=== PATIENT | male | born 1955 | race Caucasian/White ===

== ENCOUNTER 2017-10-21 18:15 | Inpatient (IN) | payer MEDICAID, OTHER ==
[~2017-10-21] VITALS: Ht 170.2 cm; Wt 66.0 kg
[2017-10-21 18:31] VITALS: Ht 170.2 cm; Wt 66.0 kg
[2017-10-21] MEDS ORDERED: PIPER-TAZO 3.375 GM IV (PMX) 50 ML IVPB STA (18:46)
[2017-10-21] MEDS ORDERED: ONDANSETRON 4 MG INJ IV STA (18:46)
[2017-10-21] MEDS ORDERED: morphine 4 MG/ML VIAL IV STA (18:46)
[2017-10-21] MEDS ORDERED: SOD CHLORIDE 0.9% 1,000 ML IV STA (18:46)
[2017-10-21] MEDS ORDERED: VANCOMYCIN 1 GM (PMX) 250 ML IVPB SCH (19:00)
[2017-10-21 19:21] LABS: BASOPHILS % 0.4 % (0.0-2.0); EOSINOPHILS # 0.3 10^3/ul (0.0-0.5); EOSINOPHILS % 2.5 % (0.0-7.0); HEMATOCRIT 38.6 % (42.0-52.0); HEMOGLOBIN 13.1 g/dl (14.0-18.0); LYMPHOCYTES # 3.1 10^3/ul (0.8-2.9); LYMPHOCYTES % 28.5 % (15.0-51.0); MEAN CORPUSCULAR HEMOGLOBIN 31.1 pg (29.0-33.0); MEAN CORPUSCULAR HGB CONC 33.9 g/dl (32.0-37.0); MEAN CORPUSCULAR VOLUME 91.7 fl (82.0-101.0); MEAN PLATELET VOLUME 9.2 fl (7.4-10.4); MONOCYTE # 0.8 10^3/ul (0.3-0.9); MONOCYTES % 6.9 % (0.0-11.0); NEUTROPHIL # 6.6 10^3/ul (1.6-7.5); NEUTROPHILS % 61.3 % (39.0-77.0); PLATELET COUNT 379 10^3/UL (140-415); RED BLOOD COUNT 4.21 10^6/ul (4.70-6.10); RED CELL DISTRIBUTION WIDTH 13.1 % (11.5-14.5); WHITE BLOOD COUNT 10.8 10^3/ul (4.8-10.8)
[2017-10-21 19:25] LABS: ADD UMIC YES; UR AMORPHOUS CRYSTAL FEW /HPF (NONE SEEN); UR ASCORBIC ACID NEGATIVE (NEGATIVE); UR BACTERIA FEW /HPF (NONE SEEN); UR BILIRUBIN (Dip) NEGATIVE (NEGATIVE); UR BLOOD (Dip) 1+ mg/dL (NEGATIVE); UR CLARITY TURBID (CLEAR); UR COLOR YELLOW (YELLOW); UR GLUCOSE (Dip) NEGATIVE (NEGATIVE); UR KETONES (Dip) NEGATIVE (NEGATIVE); UR LEUKOCYTE ESTERASE (Dip) 3+ Leu/ul (NEGATIVE); UR MUCUS MODERATE /HPF (NONE SEEN); UR NITRITE (Dip) NEGATIVE (NEGATIVE); UR RBC 4 /HPF (0-5); UR SQUAMOUS EPITHELIAL CELL FEW /HPF (FEW); UR TOTAL PROTEIN (Dip) NEGATIVE (NEGATIVE); UR UROBILINOGEN (Dip) NEGATIVE (NEGATIVE)
[2017-10-21 19:38] LABS: ALBUMIN 4.2 g/dl (3.3-4.9); ALBUMIN/GLOBULIN RATIO 1.5; CALCIUM 9.7 mg/dl (8.4-10.2); CREATININE 0.54 mg/dl (0.61-1.24); POTASSIUM 3.8 mmol/L (3.5-5.1)
--- NOTE | 2017-10-21 19:38 | RADRPT ---
PROCEDURE: Chest x-ray CLINICAL INDICATION: Abdominal pain TECHNIQUE: Chest single view COMPARISON: None FINDINGS: The heart is normal in size. The pulmonary vessels are normal in caliber. There is linear left lowe r lobe atelectasis/scarring. Lungs otherwise clear. The costophrenic angles are sharp. The visuali zed bony thorax is unremarkable. Cervical spine fusion is noted. IMPRESSION: No acute cardiopulmonary disease. RPTAT: HH .Shahriar Rm MD, Date Time Electronically viewed and signed by .Shahriar Rm MD, on 10/21/2017 19:38 .W/
[2017-10-21] MEDS ORDERED: ACET325T45 PO (19:52)
[2017-10-21] MEDS ORDERED: ALBU2.5V3 NEB (19:53)
[2017-10-21] MEDS ORDERED: [UNRECOGNIZED DRUG - CODE] PO (19:55)
[2017-10-21] MEDS ORDERED: DEXT1DRO7 OP (19:56)
[2017-10-21] MEDS ORDERED: BACL10TA PO (19:57)
[2017-10-21] MEDS ORDERED: BISA10SU75 PR (19:57)
[2017-10-21] MEDS ORDERED: DOCU-159 PO (19:59)
[2017-10-21] MEDS ORDERED: CLOT30CR35 TOP (19:59)
[2017-10-21] MEDS ORDERED: ENOX40DI2 SC (20:00)
[2017-10-21] MEDS ORDERED: FER325 PO (20:00)
[2017-10-21] MEDS ORDERED: OMEG-135 PO (20:01)
[2017-10-21] MEDS ORDERED: FOLI-49 PO (20:01)
[2017-10-21] MEDS ORDERED: GLYC1SUP92 PR (20:06)
--- NOTE | 2017-10-21 20:10 | RADRPT ---
PROCEDURE: CT ABDOMEN AND PELVIS WITHOUT CONTRAST CLINICAL INDICATION: 62-year of age, male . Abdominal pain. TECHNIQUE: CT of the abdomen and pelvis was performed without intravenous contrast. Oral contrast wa s not administered prior to the examination. Coronal and sagittal reformatted images were obtained from the axial source images. Images were revi ewed on a high-resolution PACS workstation. DICOM images are available. Dose information: Based on a 32 cm phantom, the estimated radiation dose (CTDIvol mGy) for each seri es in this exam is 15.9. The estimated cumulative dose (DLP mGy-cm) is 899. One or more of the following dose reduction techniques were used: - Automated exposure control. - Adjustment of the mA and/or kV according to patient size. - Use of iterative reconstruction technique. COMPARISON: None available. FINDINGS: In the absence of intravenous contrast, the study constitutes a limited assessment of the solid orga ns, bowel and vessels. LUNG BASES: Mild linear atelectasis of bilateral lung bases. Mild coronary artery calcification. ABDOMEN/PELVIS: Liver: Normal noncontrast appearance. Gallbladder: Normal noncontrast appearance. Bile ducts: No intrahepatic or extrahepatic biliary duct dilatation. Spleen: Normal noncontrast appearance. Pancreas: Normal noncontrast appearance. Adrenal glands: Punctate calcification in the left adrenal gland is likely from remote infection or hemorrhage. Otherwise normal. Kidneys and ureters: There is mild to moderate bilateral hydronephrosis and hydroureter with bilater al perinephric and periureteral fat stranding. Negative for renal or ureteral calculi. Negative for evidence of an obstructing lesion. Kidneys are normal size. Aorta and IVC: Atherosclerotic calcification of aorta and iliac vessels. Negative for abdominal aort ic aneurysm. Lymph nodes: Normal noncontrast appearance. Gastrointestinal tract: There is garza colonic diverticulosis without diverticulitis. Bowel loops are decompressed and otherwise unremarkable. Appendix: Normal. Bladder: There is a Nevarez catheter in a distended urinary bladder. There are calcifications on the F oley catheter balloon. There are multiple small calculi layering dependently in the urinary bladder. Bladder wall is mildly thickened with edema in the surrounding fat. There is generalized edema in t he extraperitoneal fat of the pelvis. Pelvic Organs: Prostate gland and seminal vesicles are unremarkable. Peritoneal cavity: No free fluid or free intraperitoneal air. Abdominal wall: Mild bilateral gynecomastia. Small fat containing indirect right inguinal hernia. BONES: Musculoskeletal: There is extensive heterotopic ossification arising from the posterior wall of the right acetabulum that may be from a remote injury. Right hip is in joint without significant degener ative change. Bones are osteopenic and there are mild degenerative changes in the spine. No suspicio us bone lesions. IMPRESSION: 1. Distended urinary bladder despite a Nevarez catheter may indicate a blocked catheter. There are archana cifications on the Nevarez catheter balloon and there are calculi layering dependently in the urinary bladder. Mild bladder wall thickening with edema in the surrounding fat is concerning for cystitis. Recommend correlation with urinalysis. 2. Mild to moderate bilateral hydronephrosis and hydroureter with bilateral perinephric and periuret eral fat stranding may be due to reflux related to the distended urinary bladder. Upper urinary trac t infection with pyelonephritis cannot be excluded. Negative for renal or ureteral calculi. 3. Colonic diverticulosis without diverticulitis. Normal appendix. RPTAT: HCTS Physician Gt Date Time Electronically viewed and signed by Physician Gt on 10/21/2017 20:10 /
[2017-10-21] MEDS ORDERED: HYDR-906 PO (20:13)
[2017-10-21] MEDS ORDERED: HYDR-902 PO (20:13)
[2017-10-21] MEDS ORDERED: LACTINEX PO (20:16)
[2017-10-21] MEDS ORDERED: GABA100C PO (20:17)
[2017-10-21] MEDS ORDERED: METF500T4 PO (20:17)
[2017-10-21] MEDS ORDERED: SENN-53 PO (20:18)
[2017-10-21] MEDS ORDERED: SIME80TA53 PO (20:19)
[2017-10-21] MEDS ORDERED: MULT-908 PO (20:20)
[2017-10-21] MEDS ORDERED: ASC500 PO (20:20)
[2017-10-21] MEDS ORDERED: CHOL200073 PO (20:21)
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
[2017-10-21] MEDS ORDERED: SOD CHLORIDE 0.9% 1,000 ML IV SCH (22:01)
[2017-10-21] MEDS ORDERED: ACETAMINOPHEN 325 MG TAB PO PRN ×2 (22:30→23:00)
[2017-10-21] MEDS ORDERED: ONDANSETRON 4 MG INJ IV PRN ×2 (22:30→23:00)
[2017-10-21] MEDS ORDERED: ALBUTEROL 0.083% (NEB) 2.5 MG/3 ML AMP NEB PRN (23:00)
[2017-10-21] MEDS ORDERED: NACL 0.9% 3 ML SYG IV SCH (23:00)
[2017-10-21] MEDS ORDERED: ALUMINUM HYDROXIDE 30 ML CUP PO SCH (23:00)
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
[2017-10-21 23:20] VITALS: BP 123/68; RESP 19
[2017-10-22] MEDS: ALUMINUM HYDROXIDE 30 ML CUP PO SCH ×5 (00:37→14:14)
[2017-10-22] MEDS: ENOXAPARIN 40 MG/0.4 ML SYG SC SCH ×2 (00:38→21:08)
[2017-10-22 02:00] VITALS: BP 107/66; RESP 20
[2017-10-22] MEDS ORDERED: PENDING SANTYL ORDER FOR WOUND CARE XX PRN (02:00)
[2017-10-22] MEDS: LEVOFLOXACIN 750MG/D5W (PMX) 150 ML IVPB SCH (05:32)
[2017-10-22 06:05] LABS: BASOPHILS % 0.3 % (0.0-2.0); EOSINOPHILS # 0.2 10^3/ul (0.0-0.5); EOSINOPHILS % 3.4 % (0.0-7.0); HEMATOCRIT 31.4 % (42.0-52.0); HEMOGLOBIN 10.4 g/dl (14.0-18.0); LYMPHOCYTES # 2.2 10^3/ul (0.8-2.9); LYMPHOCYTES % 32.7 % (15.0-51.0); MEAN CORPUSCULAR HEMOGLOBIN 30.7 pg (29.0-33.0); MEAN CORPUSCULAR HGB CONC 33.1 g/dl (32.0-37.0); MEAN CORPUSCULAR VOLUME 92.6 fl (82.0-101.0); MONOCYTE # 0.5 10^3/ul (0.3-0.9); MONOCYTES % 7.1 % (0.0-11.0); NEUTROPHIL # 3.8 10^3/ul (1.6-7.5); NEUTROPHILS % 56.2 % (39.0-77.0); PLATELET COUNT 333 10^3/UL (140-415); RED BLOOD COUNT 3.39 10^6/ul (4.70-6.10); RED CELL DISTRIBUTION WIDTH 13.3 % (11.5-14.5); WHITE BLOOD COUNT 6.7 10^3/ul (4.8-10.8)
[2017-10-22] MEDS: HYDROCODONE/APAP (5/325) TAB PO PRN ×2 (06:30→15:38)
[2017-10-22 06:42] LABS: ALBUMIN 3.3 g/dl (3.3-4.9); ALBUMIN/GLOBULIN RATIO 1.22; BILIRUBIN,INDIRECT 0.2 mg/dl (0-1.1); BILIRUBIN,TOTAL 0.2 mg/dl (0.2-1.3); CALCIUM 9.4 mg/dl (8.4-10.2); CHOL/HDL RATIO 5.4 RATIO; CREATININE 0.54 mg/dl (0.61-1.24); MAGNESIUM 1.8 mg/dl (1.7-2.5)
[2017-10-22 07:03] LABS: THYROID STIMULATING HORMONE 1.15 MIU/L (0.465-4.680)
[2017-10-22 07:48] VITALS: BP 125/70; RESP 17
[2017-10-22] MEDS: GABAPENTIN 100 MG CAP PO SCH ×2 (08:41→14:09)
[2017-10-22] MEDS: ASCORBIC ACID 500 MG TAB PO SCH ×2 (08:41→21:06)
[2017-10-22] MEDS: FOLIC ACID 1 MG TAB PO SCH (08:41)
[2017-10-22] MEDS: FERROUS SULFATE (EC) 325 MG TAB PO SCH ×3 (08:41→21:06)
[2017-10-22] MEDS: CLOTRIMAZOLE 1% 30 GM CR TOP SCH ×2 (08:41→21:14)
[2017-10-22] MEDS: CHOLECALCIFEROL 2,000 UNIT CAP PO SCH (08:41)
[2017-10-22] MEDS: DOCUSATE SODIUM 100 MG CAP PO SCH ×2 (08:41→21:05)
[2017-10-22] MEDS: BISACODYL 10 MG SUPP PR SCH (08:42)
[2017-10-22] MEDS: BACLOFEN 10 MG TAB PO SCH ×3 (08:42→21:06)
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
--- NOTE | 2017-10-22 10:10 | RADRPT ---
PROCEDURE: Renal US. CLINICAL INDICATION: Renal dysfunction. TECHNIQUE: Multiple sonographic images of the kidneys and urinary bladder were obtained. The imag es were reviewed on a PACS workstation. COMPARISON: CT scan of the abdomen and pelvis dated 10/21/2017. FINDINGS: The right kidney measures 10.3 cm. The left kidney measures 9.2 cm. There is no renal mass. There is no hydronephrosis. There is no renal calculus. Renal parenchymal thickness is normal bilaterally. Echogenicity is normal bilaterally. The perirenal regions are normal with no fluid collection or mass. There is a Nevarez catheter in the urinary bladder. IMPRESSION: 1. Nevarez catheter in the bladder. 2. Otherwise normal renal ultrasound. RPTAT: QQ .Reinier Villanueva MD, Date Time Electronically viewed and signed by .Reinier Villanueva MD, on 10/22/2017 10:09 .R/
[2017-10-22 14:24] VITALS: BP 149/77; RESP 17
--- NOTE | 2017-10-22 15:44 | PN ---
Date/Time of Note Date/Time of Note DATE: 10/22/17 TIME: 15:42 Assessment/Plan VTE Prophylaxis VTE Prophylaxis Intervention: LMWH Lines/Catheters [facility] [place] Urinary Cath still in place: Yes Reason Cath still needed: urinary retention Assessment/Plan Chief Complaint/Hosp Course 1. Complicated urinary tract infection. Continue empiric antibiotics. Final urine cultures pending. No evidence of any septic shock. 2. Bilateral hydronephrosis and hydroureter. Followed by nephrology. Continue empiric antibiotics. Obtain Urology evaluation. 3. Normocytic, normochromic anemia. Monitor H&H closely. The patient already on iron supplements. 4. Neurogenic bladder. Most probably secondary to the patient's spinal cord injury. The patient currently has a Nevarez catheter in place that is draining well. 5. Quadriparesis. Continue supportive care. Turn every 2 hours. 6. DVT prophylaxis. Subcutaneous Lovenox. 7. Plan. Continue empiric antibiotics. Await final cultures. Case discussed with Dr. Benitez. Problems: Subjective 24 Hr Interval Summary Free Text/Dictation Denies any pain. Exam/Review of Systems Vital Signs Vitals Vital Signs Date Time Temp Pulse Resp B/P Pulse Ox O2 Delivery O2 Flow Rate FiO2 10/22/17 14:24 97.8 67 17 149/77 96 10/21/17 22:00 Room Air Intake and Output 10/21/17 10/21/17 10/22/17 15:00 23:00 07:00 Intake Total 630 ml Output Total 1000 ml Balance -370 ml Exam General: Adequately build 62 year-old male lying in bed in no apparent distress. HEENT: Normocephalic, atraumatic. Eyes: Anicteric sclerae, conjunctivae clear. ENT: Nasal septum midline, oral mucosa moist. Neck supple, no JVD noticed. Respiratory: Bilaterally diminished breath sounds. No use of accessory muscles of respiration. No adventitious breath sounds. Cardiovascular: S1, S2 heard. Regular rate and rhythm. Abdomen: Soft, nontender, and nondistended. Bowel sounds positive in all 4 quadrants. Genitourinary: Nevarez catheter in place. Extremities: No cyanosis, no clubbing. Bilateral trace pedal edema. Peripheral pulses palpable. Neurologic: The patient is awake, alert, and oriented. Quadriparesis. Results Result Diagram: 10/22/17 0454 10/22/17 0454 Results 24 hrs Laboratory Tests Test 10/21/17 19:00 10/21/17 19:12 10/22/17 04:54 White Blood Count 10.8 6.7 # Red Blood Count 4.21 L 3.39 L Hemoglobin 13.1 L 10.4 #L Hematocrit 38.6 L 31.4 L Mean Corpuscular Volume 91.7 92.6 Mean Corpuscular Hemoglobin 31.1 30.7 Mean Corpuscular Hemoglobin Concent 33.9 33.1 Red Cell Distribution Width 13.1 13.3 Platelet Count 379 333 Mean Platelet Volume 9.2 10.0 Neutrophils % 61.3 56.2 Lymphocytes % 28.5 32.7 Monocytes % 6.9 7.1 Eosinophils % 2.5 3.4 Basophils % 0.4 0.3 Nucleated Red Blood Cells % 0.0 0.0 Neutrophils # 6.6 3.8 Lymphocytes # 3.1 H 2.2 Monocytes # 0.8 0.5 Eosinophils # 0.3 0.2 Basophils # 0.0 0.0 Nucleated Red Blood Cells # 0.0 0.0 Sodium Level 140 142 Potassium Level 3.8 4.0 Chloride Level 102 105 Carbon Dioxide Level 27 26 Anion Gap 15 15 Blood Urea Nitrogen 12 10 Creatinine 0.54 L 0.54 L Glucose Level 94 87 Calcium Level 9.7 9.4 Total Bilirubin 0.0 L 0.2 Direct Bilirubin 0.00 0.00 Indirect Bilirubin 0.0 0.2 Aspartate Amino Transf (AST/SGOT) 17 15 Alanine Aminotransferase (ALT/SGPT) 24 27 Alkaline Phosphatase 126 H 98 Total Protein 7.0 6.0 #L Albumin 4.2 3.3 Globulin 2.80 2.70 Albumin/Globulin Ratio 1.50 1.22 Urine Color YELLOW Urine Clarity TURBID A Urine pH 8.0 Urine Specific [place] 1.010 Urine Ketones NEGATIVE Urine Nitrite NEGATIVE Urine Bilirubin NEGATIVE Urine Urobilinogen NEGATIVE Urine Leukocyte Esterase 3+ H Urine Microscopic RBC 4 Urine Microscopic WBC 36 H Urine Squamous Epithelial Cells FEW Urine Amorphous Crystals FEW A Urine Bacteria FEW A Urine Mucus MODERATE Urine Hemoglobin 1+ H Urine Glucose NEGATIVE Urine Total Protein NEGATIVE Hemoglobin A1c 5.6 Magnesium Level 1.8 Triglycerides Level 159 H Cholesterol Level 164 LDL Cholesterol, Calculated 102 HDL Cholesterol 30 Cholesterol/HDL Ratio 5.4 Thyroid Stimulating Hormone (TSH) 1.150 Medications Medications Current Medications Acetaminophen (Tylenol Tab) 650 mg Q6H PRN PO PAIN AND OR ELEVATED TEMP; Start 10/21/17 at 23:00 Ascorbic Acid (Vitamin C) 500 mg BID PO Last administered on 10/22/17 08:41; Admin Dose 500 MG; Start 10/22/17 at 09:00 Baclofen (Lioresal) 5 mg TID PO Last administered on 10/22/17 14:10; Admin Dose 5 MG; Start 10/22/17 at 09:00 Bisacodyl (Dulcolax Supp) [address] Last administered on 10/22/17 08:42; Admin Dose 10 MG; Start 10/22/17 at 09:00 Cholecalciferol (Vitamin D) 2,000 unit DAILY PO Last administered on 10/22/17 08:41; Admin Dose 2,000 UNIT; Start 10/22/17 at 09:00 Clotrimazole (Lotrimin Cr) 1 applic BID TOP Last administered on 10/22/17 08: 41; Admin Dose 1 APPLIC; Start 10/22/17 at 09:00 Docusate Sodium (Colace) 100 mg BID PO Last administered on 10/22/17 08:41; Admin Dose 100 MG; Start 10/22/17 at 09:00 Enoxaparin Sodium (Lovenox) 40 mg Q24H SC Last administered on 10/22/17 00:38 ; Admin Dose 40 MG; Start 10/21/17 at 23:00 Ferrous Sulfate (Ferrous Sulfate (Ec)) 325 mg TID PO Last administered on 14:10; Admin Dose 325 MG; Start 10/22/17 at 09:00 Folic Acid (Folic Acid) 1 mg DAILY PO Last administered on 10/22/17 08:41; Admin Dose 1 MG; Start 10/22/17 at 09:00 Gabapentin (Neurontin) 100 mg TID PO Last administered on 10/22/17 14:09; Admin Dose 100 MG; Start 10/22/17 at 09:00 Senna (Senokot) 1 tab QHS PO ; Start 10/22/17 at 21:00 Simethicone (Mylicon) 80 mg QID PO Last administered on 10/22/17 14:10; Admin Dose 80 MG; Start 10/22/17 at 09:00 Ondansetron HCl (Zofran Inj) 4 mg Q6H PRN IV NAUSEA AND/OR VOMITING; Start at 23:00 Acetaminophen/ Hydrocodone Bitart ([place] (5/325)) 1 tab Q6H PRN PO MODERATE PAIN LEVEL 4-6 Last administered on 10/22/17 06:30; Admin Dose 1 TAB; Start at 23:00 Aluminum Hydroxide (Aluminum Hydroxide) 30 ml Q4H PO Last administered on 14:14; Admin Dose 30 ML; Start 10/21/17 at 23:08 Miscellaneous Information This patient mendez... PRN PRN XX WOUND CARE; Start 10/22 at 02:00 Levofloxacin/ Dextrose (Levaquin 750 Mg/ D5W 150 ml (Pmx)) 150 ml @ 100 mls/hr Q24H IVPB Last administered on 10/22/17 05:32; Admin Dose 100 MLS/HR; Start 10/22/17 at 03:00 TARAH FONG NP Oct 22, 2017 15:43
[2017-10-22 20:00] VITALS: BP 116/69; PULSE 78; RESP 19
[2017-10-22] MEDS: SENNA TAB PO SCH (21:05)
[2017-10-23] MEDS: ALUMINUM HYDROXIDE 30 ML CUP PO SCH ×4 (00:54→07:08)
[2017-10-23] MEDS: GABAPENTIN 100 MG CAP PO SCH ×4 (00:55→20:06)
[2017-10-23] MEDS ORDERED: VANCOMYCIN IV PER PHARMACY XX SCH (01:30)
[2017-10-23] MEDS ORDERED: VANCOMYCIN 1.25 GM in SOD CHLORIDE 0.9% 250 ML IVPB ONE (02:00)
[2017-10-23] MEDS: LEVOFLOXACIN 750MG/D5W (PMX) 150 ML IVPB SCH (02:21)
[2017-10-23 02:59] VITALS: BP 116/67; RESP 18
[2017-10-23] MEDS: HYDROCODONE/APAP (5/325) TAB PO PRN ×2 (03:09→16:15)
[2017-10-23 05:15] LABS: BASOPHILS % 0.3 % (0.0-2.0); EOSINOPHILS # 0.3 10^3/ul (0.0-0.5); EOSINOPHILS % 4.5 % (0.0-7.0); HEMATOCRIT 30.3 % (42.0-52.0); HEMOGLOBIN 10.5 g/dl (14.0-18.0); LYMPHOCYTES # 2.5 10^3/ul (0.8-2.9); LYMPHOCYTES % 42.4 % (15.0-51.0); MEAN CORPUSCULAR HEMOGLOBIN 31.4 pg (29.0-33.0); MEAN CORPUSCULAR HGB CONC 34.7 g/dl (32.0-37.0); MEAN CORPUSCULAR VOLUME 90.7 fl (82.0-101.0); MEAN PLATELET VOLUME 9.4 fl (7.4-10.4); MONOCYTE # 0.5 10^3/ul (0.3-0.9); MONOCYTES % 8.2 % (0.0-11.0); NEUTROPHIL # 2.6 10^3/ul (1.6-7.5); NEUTROPHILS % 44.4 % (39.0-77.0); PLATELET COUNT 327 10^3/UL (140-415); RED BLOOD COUNT 3.34 10^6/ul (4.70-6.10); RED CELL DISTRIBUTION WIDTH 13.2 % (11.5-14.5); WHITE BLOOD COUNT 5.9 10^3/ul (4.8-10.8)
[2017-10-23 05:49] LABS: IRON 39 ug/dl (35-150)
[2017-10-23 05:54] LABS: CALCIUM 9.5 mg/dl (8.4-10.2); CREATININE 0.56 mg/dl (0.61-1.24); MAGNESIUM 1.6 mg/dl (1.7-2.5); PHOSPHORUS 3.5 mg/dl (2.5-4.9); POTASSIUM 3.9 mmol/L (3.5-5.1)
[2017-10-23 05:58] LABS: URIC ACID 6.7 mg/dl (3.1-7.9)
[2017-10-23 05:59] LABS: TOTAL IRON BINDING CAPACITY 242 ug/dl (241-421)
[2017-10-23 08:00] VITALS: BP 141/73; RESP 18
[2017-10-23] MEDS: FERROUS SULFATE (EC) 325 MG TAB PO SCH ×3 (08:44→20:06)
[2017-10-23] MEDS: BACLOFEN 10 MG TAB PO SCH ×3 (08:44→20:06)
[2017-10-23] MEDS: ASCORBIC ACID 500 MG TAB PO SCH ×2 (08:44→20:07)
[2017-10-23] MEDS: DOCUSATE SODIUM 100 MG CAP PO SCH ×2 (08:44→20:04)
[2017-10-23] MEDS: CHOLECALCIFEROL 2,000 UNIT CAP PO SCH (08:44)
[2017-10-23] MEDS: FOLIC ACID 1 MG TAB PO SCH (08:44)
[2017-10-23] MEDS: BISACODYL 10 MG SUPP PR SCH ×2 (08:46→09:00)
[2017-10-23] MEDS: CLOTRIMAZOLE 1% 30 GM CR TOP SCH ×2 (09:13→20:07)
--- NOTE | 2017-10-23 10:23 | PN ---
Date/Time of Note Date/Time of Note DATE: 10/23/17 TIME: 10:21 Assessment/Plan VTE Prophylaxis VTE Prophylaxis Intervention: LMWH Lines/Catheters IV C[facility]ter Type (from [facility] Saline Lock Urinary Cath still in place: Yes (neurogenic bladder) Reason Cath still needed: urinary retention Assessment/Plan Chief Complaint/Hosp Course 1. Complicated urinary tract infection. Continue empiric antibiotics. Final urine cultures pending. No evidence of any septic shock. 2. Sepsis with underlying gram-positive bacteremia. No evidence of any septic shock. Infectious diseases to evaluate the patient. 3. Bilateral hydronephrosis and hydroureter. Continue empiric antibiotics. Urology evaluation. 4. Normocytic, normochromic anemia. Monitor H&H closely. The patient already on iron supplements. 5. Neurogenic bladder. Most probably secondary to the patient's spinal cord injury. The patient currently has a Envarez catheter in place that is draining well. 6. Quadriparesis. Continue supportive care. Turn every 2 hours. 7. DVT prophylaxis. Subcutaneous Lovenox. 8. Plan. Continue empiric antibiotics. Await final cultures. Obtain ID consult. Replete magnesium. Case discussed with Dr. Benitez. Problems: Subjective 24 Hr Interval Summary Free Text/Dictation The patient remains afebrile. Denies any complaints. Exam/Review of Systems Vital Signs Vitals Vital Signs Date Time Temp Pulse Resp B/P Pulse Ox O2 Delivery O2 Flow Rate FiO2 10/23/17 08:00 97.8 56 18 141/73 99 10/22/17 20:00 Room Air Intake and Output 10/22/17 10/22/17 10/23/17 14:59 22:59 06:59 Intake Total 520 ml 670 ml Output Total 1330 ml 1700 ml Balance -810 ml -1030 ml Exam General: Adequately build 62 year-old male lying in bed in no apparent distress. HEENT: Normocephalic, atraumatic. Eyes: Anicteric sclerae, conjunctivae clear. ENT: Nasal septum midline, oral mucosa moist. Neck supple, no JVD noticed. Respiratory: Bilaterally diminished breath sounds. No use of accessory muscles of respiration. No adventitious breath sounds. Cardiovascular: S1, S2 heard. Regular rate and rhythm. Abdomen: Soft, nontender, and nondistended. Bowel sounds positive in all 4 quadrants. Genitourinary: Nevarez catheter in place. Extremities: No cyanosis, no clubbing. Bilateral trace pedal edema. Peripheral pulses palpable. Neurologic: The patient is awake, alert, and oriented. Quadriparesis. Results Result Diagram: 10/23/17 0443 10/23/17 0443 Results 24 hrs Laboratory Tests Test 10/23/17 04:43 White Blood Count 5.9 Red Blood Count 3.34 L Hemoglobin 10.5 L Hematocrit 30.3 L Mean Corpuscular Volume 90.7 Mean Corpuscular Hemoglobin 31.4 Mean Corpuscular Hemoglobin Concent 34.7 Red Cell Distribution Width 13.2 Platelet Count 327 Mean Platelet Volume 9.4 Neutrophils % 44.4 Lymphocytes % 42.4 Monocytes % 8.2 Eosinophils % 4.5 Basophils % 0.3 Nucleated Red Blood Cells % 0.0 Neutrophils # 2.6 Lymphocytes # 2.5 Monocytes # 0.5 Eosinophils # 0.3 Basophils # 0.0 Nucleated Red Blood Cells # 0.0 Sodium Level 140 Potassium Level 3.9 Chloride Level 104 Carbon Dioxide Level 27 Anion Gap 13 Blood Urea Nitrogen 7 Creatinine 0.56 L Glucose Level 89 Uric Acid 6.7 Calcium Level 9.5 Phosphorus Level 3.5 Magnesium Level 1.6 L Iron Level 39 Total Iron Binding Capacity 242 Percent Iron Saturation 16 L Ferritin 228.0 Creatine Kinase 26 Medications Medications Current Medications Acetaminophen (Tylenol Tab) 650 mg Q6H PRN PO PAIN AND OR ELEVATED TEMP; Start 10/21/17 at 23:00 Ascorbic Acid (Vitamin C) 500 mg BID PO Last administered on 10/23/17 08:44; Admin Dose 500 MG; Start 10/22/17 at 09:00 Baclofen (Lioresal) 5 mg TID PO Last administered on 10/23/17 08:44; Admin Dose 5 MG; Start 10/22/17 at 09:00 Bisacodyl (Dulcolax Supp) 10 mg DAILY [place] Last administered on 10/23/17 08:46; Admin Dose 10 MG; Start 10/22/17 at 09:00 Cholecalciferol (Vitamin D) 2,000 unit DAILY PO Last administered on 10/23/17 08:44; Admin Dose 2,000 UNIT; Start 10/22/17 at 09:00 Clotrimazole (Lotrimin Cr) 1 applic BID TOP Last administered on 10/23/17 09: 13; Admin Dose 1 APPLIC; Start 10/22/17 at 09:00 Docusate Sodium (Colace) 100 mg BID PO Last administered on 10/23/17 08:44; Admin Dose 100 MG; Start 10/22/17 at 09:00 Enoxaparin Sodium (Lovenox) 40 mg Q24H SC Last administered on 10/22/17 21:08 ; Admin Dose 40 MG; Start 10/21/17 at 23:00 Ferrous Sulfate (Ferrous Sulfate (Ec)) 325 mg TID PO Last administered on 08:44; Admin Dose 325 MG; Start 10/22/17 at 09:00 Folic Acid (Folic Acid) 1 mg DAILY PO Last administered on 10/23/17 08:44; Admin Dose 1 MG; Start 10/22/17 at 09:00 Gabapentin (Neurontin) 100 mg TID PO Last administered on 10/23/17 08:44; Admin Dose 100 MG; Start 10/22/17 at 09:00 Senna (Senokot) 1 tab QHS PO Last administered on 10/22/17 21:05; Admin Dose 1 TAB; Start 10/22/17 at 21:00 Simethicone (Mylicon) 80 mg QID PO Last administered on 10/23/17 08:44; Admin Dose 80 MG; Start 10/22/17 at 09:00 Ondansetron HCl (Zofran Inj) 4 mg Q6H PRN IV NAUSEA AND/OR VOMITING; Start at 23:00 Acetaminophen/ Hydrocodone Bitart ([place] (5/325)) 1 tab Q6H PRN PO MODERATE PAIN LEVEL 4-6 Last administered on 10/23/17 03:09; Admin Dose 1 TAB; Start at 23:00 Miscellaneous Information This patient mendez... PRN PRN XX WOUND CARE; Start 10/22 at 02:00 Levofloxacin/ Dextrose 150 ml @ 100 mls/hr Q24H IVPB Last administered on 10/23 02:21; Admin Dose 100 MLS/HR; Start 10/22/17 at 03:00 Vancomycin HCl (Vancocin) 250 ml @ 125 mls/hr Q12H IVPB ; Start 10/23/17 at 14: 00 Miscellaneous Information (*Rx Drug Level Order Reminder*) VANCO TROUGH @ 1, 300 ON ... ONCE ONCE XX ; Start 10/24/17 at 13:00; Stop 10/24/17 at 13:01 TARAH FONG NP Oct 23, 2017 10:23
[2017-10-23] MEDS ORDERED: MAGNESIUM SULFATE 2 GM/50 ML 50 ML IVPB ONE (11:30)
--- NOTE | 2017-10-23 11:41 | CONS ---
DATE OF ADMISSION: 10/21/2017 DATE OF CONSULTATION: 10/23/2017 INFECTIOUS DISEASE CONSULTATION REASON FOR CONSULTATION: Antibiotic management. HISTORY OF PRESENT ILLNESS: Macho Kong is a 62-year-old male who is admitted to [facility] for complicated urinary tract infection and is being seen for antibiotic management. His past p roblems include quadriplegia from a fall after a welding accident that occurred in 11/2016. The pat ient fell and had a C7 to T1 fracture resulting in quadriplegia. He has been bedridden, has an indw elling Nevarez catheter. He was sent by the nursing facility because of decreased urinary output and suprapubic pain. He has no fever or chills. He has a history of neurogenic bladder and bowel. PAST MEDICAL HISTORY: Operations as outlined. FAMILY HISTORY: Noncontributory. PAST SURGICAL HISTORY: He had cervical spine surgery, bilateral carpal tunnel surgery. FAMILY HISTORY: Noncontributory. SOCIAL HISTORY: He was a former smoker, does not drink or abuse drugs. ALLERGIES: NONE TO PENICILLIN, SULFA OR FOODS. MEDICATIONS: Per chart. REVIEW OF SYSTEMS: Noncontributory. PHYSICAL EXAMINATION: GENERAL: The patient is a well-developed, well-nourished male who is alert, responsive, in no acute distress. VITAL SIGNS: Stable. He is afebrile. SKIN: Without generalized rash. HEENT: Within normal limits. NECK: Supple. LYMPH NODES: None palpable. CHEST: Decreased breath sounds at the bases. HEART: Without murmur or gallop. ABDOMEN: Soft, nontender, without organosplenomegaly or masses. EXTREMITIES: Without cyanosis, clubbing or edema. He has quadriplegia. RECTAL AND GENITAL: Deferred. NEUROLOGICAL: No focal neurological abnormalities. A CT scan of the abdomen and pelvis was done without contrast. It showed distended urinary bladder, despite Nevarez catheter on admission, which may indicate a blockage. There are calculi dependently in the urinary bladder. He has bilateral hydronephrosis and hydroureter with bilateral perinephric and periureteral fat stranding maybe due to reflux, upper urinary tract infection with pyelonephriti s cannot be excluded, negative for renal or ureteral calculus. Colonic diverticulosis without diver ticulitis. His urine is growing gram-negative rods, his blood cultures are growing gram-positive co cci in pairs and clusters. MRSA screen is negative. White count is 5.9 today, H and H of 10.5 and 30.3, platelet count 327,000. BUN and creatinine 7/0.56. Urine is negative for nitrite, 3+ leukocy te esterase, 36 white cells per high powered field. The patient is currently on vancomycin and also on Levaquin. We want to repeat the blood cultures a nd I may switch the Levaquin to ertapenem. I will dictate my findings to the hospitalist. Dictated By: SOWMYA PEÑA MD, JD/NTS Conf#: [id number] DID#: [id number] CC: KADY MCGARRY MD;*End*
[2017-10-23] MEDS: ERTAPENEM SODIUM 1 GM in SOD CHLORIDE 0.9% 100 ML IVPB SCH (11:46)
--- NOTE | 2017-10-23 13:23 | CONS ---
Date/Time of Note Date/Time of Note DATE: 10/23/17 TIME: 13:05 Assessment/Plan Assessment/Plan Chief Complaint/Hosp Course 62-year-old male quadriplegic from a fall after a welding accident at work that occurred November 2016 was admitted because of decrased urine output from his rodrigues and abdominal pain. The patient had cervical fracture resulting in quadriplegia. He has a bedridden state and has an indwelling Rodrigues catheter. He was sent by nursing facility because of decreased urine output and the patient is complaining of suprapubic pain. Patient had no fever no nausea vomiting or diarrhea. He has a history of neurogenic bowel and bladder. He states he had one episode similar to this approx [address] scan of abdomen and pelvis done yesterday showed: 1. Distended urinary bladder despite a Rodrigues catheter may indicate a blocked catheter. There are calcifications on the Rodrigues catheter balloon and there are calculi layering dependently in the urinary bladder. Mild bladder wall thickening with edema in the surrounding fat is concerning for cystitis. Recommend correlation with urinalysis. 2. Mild to moderate bilateral hydronephrosis and hydroureter with bilateral perinephric and periureteral fat stranding may be due to reflux related to the distended urinary bladder. Upper urinary tract infection with pyelonephritis cannot be excluded. Negative for renal or ureteral calculi. 3. Colonic diverticulosis without diverticulitis. Normal appendix. I removed the old Rodrigues and there was no calcification on it.Also the drainage bag was full. I inserted a new catheter 18Fr.(one that does not kink) Most likely the old rodrigues was kinked at the time of the CT scan Problems: Consultation Date/Type/Reason Admit Date/Time 10/21/17 Date of Consultation: Oct 23, 2017 Type of Consultation: Urology Reason for Consultation hydronephrosis and urinary retention Referring Provider: TARAH FONG NP Hx of Present Illness 62-year-old male quadriplegic from a fall after a welding accident at work that occurred November 2016 was admitted because of decrased urine output from his rodrigues and abdominal pain. The patient had cervical fracture resulting in quadriplegia. He has a bedridden state and has an indwelling Rodrigues catheter. He was sent by nursing facility because of decreased urine output and the patient is complaining of suprapubic pain. Patient had no fever no nausea vomiting or diarrhea. He has a history of neurogenic bowel and bladder. He states he had one episode similar to this approx [address] scan of abdomen and pelvis done yesterday showed: 1. Distended urinary bladder despite a Rodrigues catheter may indicate a blocked catheter. There are calcifications on the Rodrigues catheter balloon and there are calculi layering dependently in the urinary bladder. Mild bladder wall thickening with edema in the surrounding fat is concerning for cystitis. Recommend correlation with urinalysis. 2. Mild to moderate bilateral hydronephrosis and hydroureter with bilateral perinephric and periureteral fat stranding may be due to reflux related to the distended urinary bladder. Upper urinary tract infection with pyelonephritis cannot be excluded. Negative for renal or ureteral calculi. 3. Colonic diverticulosis without diverticulitis. Normal appendix. Subjective hx not possible: pt non-verbal Constitutional: no complaints Eyes: no complaints ENT: no complaints Respiratory: other Musculoskeletal: no complaints Skin: no complaints Neurologic: other (quadriplegia) Past Medical History Medical History: other (quadriplegia, neurogenic bladder ) Past Surgical History Past Surgical Hx: other (carpal tunnel surgery and spine surgery) Family History Significant Family History: no pertinent family hx Social History Alcohol Use: none Smoking Status: Former smoker Drug Use: none Exam/Review of Systems Vital Signs Vitals Vital Signs Date Time Temp Pulse Resp B/P Pulse Ox O2 Delivery O2 Flow Rate FiO2 10/23/17 08:00 97.8 56 18 141/73 99 10/22/17 20:00 Room Air Intake and Output 10/22/17 10/22/17 10/23/17 15:00 23:00 07:00 Intake Total 520 ml 670 ml Output Total 1330 ml 1700 ml Balance -810 ml -1030 ml Exam Constitutional: alert Head: normocephalic Eyes: nl conjunctiva ENMT: nl external ears & nose Neck: supple Respiratory: normal air movement Cardiovascular: No edema Gastrointestinal: soft Genitourinary - Male: nl penis, nl scrotum, other (rodrigues catheter) Musculoskeletal: other (quadriplegia) Extremities: other (quadriplegia) Results Result Diagram: 10/23/17 0443 10/23/173 Results 24 hrs Laboratory Tests Test 10/23/17 04:43 White Blood Count 5.9 Red Blood Count 3.34 L Hemoglobin 10.5 L Hematocrit 30.3 L Mean Corpuscular Volume 90.7 Mean Corpuscular Hemoglobin 31.4 Mean Corpuscular Hemoglobin Concent 34.7 Red Cell Distribution Width 13.2 Platelet Count 327 Mean Platelet Volume 9.4 Neutrophils % 44.4 Lymphocytes % 42.4 Monocytes % 8.2 Eosinophils % 4.5 Basophils % 0.3 Nucleated Red Blood Cells % 0.0 Neutrophils # 2.6 Lymphocytes # 2.5 Monocytes # 0.5 Eosinophils # 0.3 Basophils # 0.0 Nucleated Red Blood Cells # 0.0 Sodium Level 140 Potassium Level 3.9 Chloride Level 104 Carbon Dioxide Level 27 Anion Gap 13 Blood Urea Nitrogen 7 Creatinine 0.56 L Glucose Level 89 Uric Acid 6.7 Calcium Level 9.5 Phosphorus Level 3.5 Magnesium Level 1.6 L Iron Level 39 Total Iron Binding Capacity 242 Percent Iron Saturation 16 L Ferritin 228.0 Creatine Kinase 26 Imaging Free Text/Dictation ct scan of abdomen and pelvis: 1. Distended urinary bladder despite a Rodrigues catheter may indicate a blocked catheter. There are calcifications on the Rodrigues catheter balloon and there are calculi layering dependently in the urinary bladder. Mild bladder wall thickening with edema in the surrounding fat is concerning for cystitis. Recommend correlation with urinalysis. 2. Mild to moderate bilateral hydronephrosis and hydroureter with bilateral perinephric and periureteral fat stranding may be due to reflux related to the distended urinary bladder. Upper urinary tract infection with pyelonephritis cannot be excluded. Negative for renal or ureteral calculi. 3. Colonic diverticulosis without diverticulitis. Normal appendix. Medications Medications Current Medications Acetaminophen (Tylenol Tab) 650 mg Q6H PRN PO PAIN AND OR ELEVATED TEMP; Start 10/21/17 at 23:00 Ascorbic Acid (Vitamin C) 500 mg BID PO Last administered on 10/23/17 08:44; Admin Dose 500 MG; Start 10/22/17 at 09:00 Baclofen (Lioresal) 5 mg TID PO Last administered on 10/23/17 12:58; Admin Dose 5 MG; Start 10/22/17 at 09:00 Bisacodyl (Dulcolax Supp) 10 mg DAILY [place] Last administered on 10/23/17 08:46; Admin Dose 10 MG; Start 10/22/17 at 09:00 Cholecalciferol (Vitamin D) 2,000 unit DAILY PO Last administered on 10/23/17 08:44; Admin Dose 2,000 UNIT; Start 10/22/17 at 09:00 Clotrimazole (Lotrimin Cr) 1 applic BID TOP Last administered on 10/23/17 09: 13; Admin Dose 1 APPLIC; Start 10/22/17 at 09:00 Docusate Sodium (Colace) 100 mg BID PO Last administered on 10/23/17 08:44; Admin Dose 100 MG; Start 10/22/17 at 09:00 Enoxaparin Sodium (Lovenox) 40 mg Q24H SC Last administered on 10/22/17 21:08 ; Admin Dose 40 MG; Start 10/21/17 at 23:00 Ferrous Sulfate (Ferrous Sulfate (Ec)) 325 mg TID PO Last administered on 12:58; Admin Dose 325 MG; Start 10/22/17 at 09:00 Folic Acid (Folic Acid) 1 mg DAILY PO Last administered on 10/23/17 08:44; Admin Dose 1 MG; Start 10/22/17 at 09:00 Gabapentin (Neurontin) 100 mg TID PO Last administered on 10/23/17 12:58; Admin Dose 100 MG; Start 10/22/17 at 09:00 Senna (Senokot) 1 tab QHS PO Last administered on 10/22/17 21:05; Admin Dose 1 TAB; Start 10/22/17 at 21:00 Simethicone (Mylicon) 80 mg QID PO Last administered on 10/23/17 12:58; Admin Dose 80 MG; Start 10/22/17 at 09:00 Ondansetron HCl (Zofran Inj) 4 mg Q6H PRN IV NAUSEA AND/OR VOMITING; Start at 23:00 Acetaminophen/ Hydrocodone Bitart ([place] (5/325)) 1 tab Q6H PRN PO MODERATE PAIN LEVEL 4-6 Last administered on 10/23/17 03:09; Admin Dose 1 TAB; Start at 23:00 Miscellaneous Information This patient mendez... PRN PRN XX WOUND CARE; Start 10/22 at 02:00 Vancomycin HCl (Vancocin) 250 ml @ 125 mls/hr Q12H IVPB ; Start 10/23/17 at 14: 00 Miscellaneous Information VANCO TROUGH @ 1,300 ON ... ONCE ONCE XX ; Start at 13:00; Stop 10/24/17 at 13:01 Magnesium Sulfate 50 ml @ 25 mls/hr ONCE ONCE IVPB Last administered on t 12:59; Admin Dose 25 MLS/HR; Start 10/23/17 at 11:30; Stop 10/23/17 at 13: 29 Ertapenem/Sodium Chloride (Invanz/NS) 100 ml @ 200 mls/hr Q24H IVPB Last administered on 10/23/17t 11:46; Admin Dose 200 MLS/HR; Start 10/23/17 at 11:30 BENSON PIKE MD Oct 23, 2017 13:17
[2017-10-23 14:00] VITALS: BP 136/76; RESP 17
[2017-10-23] MEDS: VANCOMYCIN 1 GM in NS 250 ML IVPB SCH (15:00)
--- NOTE | 2017-10-23 16:47 | CONS ---
Date/Time of Note Date/Time of Note DATE: 10/23/17 TIME: 16:45 Assessment/Plan Assessment/Plan Chief Complaint/Hosp Course 2-year-old male who is a quadriplegic from a fall after a welding accident from a explosion at work that occurred November 2016 comes in today due to decrased urine output from his rodrigues and abdominal pain. The patient fell and had a C7- T1 fracture resulting in quadriplegia. He has a bedridden state and has an indwelling Rodrigues catheter. He was sent by nursing facility because of decreased urine output and the patient is complaining of suprapubic pain. Patient says he has no fever no nausea vomiting or diarrhea. He has a history of neurogenic bowel and bladder. He states he had one episode similar to this approx 4 months ago. pt is noted to have bilateral hydronpehrosis with prerenal azotemia and renal has been consulted for it p Problems: Additional Assessment/Plan 1. Bilateral Hydronpehrosis with hydroureter 2. complicated UTI 3. Neurogenci bladder 4. Quadriplegia Plan: IV abx, Urine Cx pending, S/p urolgoy consult, possible blocked catheter pt my have chronic hydronephrosis, currently Cr normal, Uric acid normal, Mag 1.6- magnesium sulfate 2 gram IV x 1 will follow up Consultation Date/Type/Reason Admit Date/Time Oct 21, 2017 at 22:02 Initial Consult Date 10/23/17 Type of Consultation: NEPHROLOGY Referring Provider: TARAH FONG NP 24 HR Interval Summary Free Text/Dictation c/o Bilateral flank pain, BP stable Exam/Review of Systems Vital Signs Vitals Vital Signs Date Time Temp Pulse Resp B/P Pulse Ox O2 Delivery O2 Flow Rate FiO2 10/23/17 08:00 97.8 56 18 141/73 99 10/22/17 20:00 Room Air Intake and Output 10/22/17 10/22/17 10/23/17 15:00 23:00 07:00 Intake Total 520 ml 670 ml Output Total 1330 ml 1700 ml Balance -810 ml -1030 ml Results Result Diagram: 10/23/17 0443 10/23/17 0443 Results 24 hrs Laboratory Tests Test 10/23/17 04:43 White Blood Count 5.9 Red Blood Count 3.34 L Hemoglobin 10.5 L Hematocrit 30.3 L Mean Corpuscular Volume 90.7 Mean Corpuscular Hemoglobin 31.4 Mean Corpuscular Hemoglobin Concent 34.7 Red Cell Distribution Width 13.2 Platelet Count 327 Mean Platelet Volume 9.4 Neutrophils % 44.4 Lymphocytes % 42.4 Monocytes % 8.2 Eosinophils % 4.5 Basophils % 0.3 Nucleated Red Blood Cells % 0.0 Neutrophils # 2.6 Lymphocytes # 2.5 Monocytes # 0.5 Eosinophils # 0.3 Basophils # 0.0 Nucleated Red Blood Cells # 0.0 Sodium Level 140 Potassium Level 3.9 Chloride Level 104 Carbon Dioxide Level 27 Anion Gap 13 Blood Urea Nitrogen 7 Creatinine 0.56 L Glucose Level 89 Uric Acid 6.7 Calcium Level 9.5 Phosphorus Level 3.5 Magnesium Level 1.6 L Iron Level 39 Total Iron Binding Capacity 242 Percent Iron Saturation 16 L Ferritin 228.0 Creatine Kinase 26 Medications Medications Current Medications Acetaminophen (Tylenol Tab) 650 mg Q6H PRN PO PAIN AND OR ELEVATED TEMP; Start 10/21/17 at 23:00 Ascorbic Acid (Vitamin C) 500 mg BID PO Last administered on 10/23/17 08:44; Admin Dose 500 MG; Start 10/22/17 at 09:00 Baclofen (Lioresal) 5 mg TID PO Last administered on 10/23/17 12:58; Admin Dose 5 MG; Start 10/22/17 at 09:00 Bisacodyl (Dulcolax Supp) 10 mg DAILY [place] Last administered on 10/23/17 08:46; Admin Dose 10 MG; Start 10/22/17 at 09:00 Cholecalciferol (Vitamin D) 2,000 unit DAILY PO Last administered on 10/23/17 08:44; Admin Dose 2,000 UNIT; Start 10/22/17 at 09:00 Clotrimazole (Lotrimin Cr) 1 applic BID TOP Last administered on 10/23/17 09: 13; Admin Dose 1 APPLIC; Start 10/22/17 at 09:00 Docusate Sodium (Colace) 100 mg BID PO Last administered on 10/23/17 08:44; Admin Dose 100 MG; Start 10/22/17 at 09:00 Enoxaparin Sodium (Lovenox) 40 mg Q24H SC Last administered on 10/22/17 21:08 ; Admin Dose 40 MG; Start 10/21/17 at 23:00 Ferrous Sulfate (Ferrous Sulfate (Ec)) 325 mg TID PO Last administered on 12:58; Admin Dose 325 MG; Start 10/22/17 at 09:00 Folic Acid (Folic Acid) 1 mg DAILY PO Last administered on 10/23/17 08:44; Admin Dose 1 MG; Start 10/22/17 at 09:00 Gabapentin (Neurontin) 100 mg TID PO Last administered on 10/23/17 12:58; Admin Dose 100 MG; Start 10/22/17 at 09:00 Senna (Senokot) 1 tab QHS PO Last administered on 10/22/17 21:05; Admin Dose 1 TAB; Start 10/22/17 at 21:00 Simethicone (Mylicon) 80 mg QID PO Last administered on 10/23/17 12:58; Admin Dose 80 MG; Start 10/22/17 at 09:00 Ondansetron HCl (Zofran Inj) 4 mg Q6H PRN IV NAUSEA AND/OR VOMITING; Start at 23:00 Acetaminophen/ Hydrocodone Bitart ([place] (5/325)) 1 tab Q6H PRN PO MODERATE PAIN LEVEL 4-6 Last administered on 10/23/17 16:15; Admin Dose 1 TAB; Start at 23:00 Miscellaneous Information This patient mendez... PRN PRN XX WOUND CARE; Start 10/22 at 02:00 Vancomycin HCl (Vancocin) 250 ml @ 125 mls/hr Q12H IVPB Last administered on 10/23/17 15:00; Admin Dose 125 MLS/HR; Start 10/23/17 at 14:00 Miscellaneous Information VANCO TROUGH @ 1,300 ON ... ONCE ONCE XX ; Start at 13:00; Stop 10/24/17 at 13:01 Ertapenem/Sodium Chloride (Invanz/NS) 100 ml @ 200 mls/hr Q24H IVPB Last administered on 10/23/17 11:46; Admin Dose 200 MLS/HR; Start 10/23/17 at 11:30 JOSE MANUEL WILL MD Oct 23, 2017 16:47
[2017-10-23 20:00] VITALS: BP 121/67; RESP 20
[2017-10-23] MEDS: SENNA TAB PO SCH (20:06)
[2017-10-23] MEDS: ENOXAPARIN 40 MG/0.4 ML SYG SC SCH (22:32)
[2017-10-24] MEDS: VANCOMYCIN 1 GM in NS 250 ML IVPB SCH ×2 (01:50→15:39)
[2017-10-24 02:00] VITALS: BP 127/61; RESP 20
[2017-10-24] MEDS: HYDROCODONE/APAP (5/325) TAB PO PRN ×2 (05:35→17:09)
[2017-10-24 05:36] LABS: BASOPHILS % 0.6 % (0.0-2.0); EOSINOPHILS # 0.3 10^3/ul (0.0-0.5); EOSINOPHILS % 5.6 % (0.0-7.0); HEMATOCRIT 30.5 % (42.0-52.0); HEMOGLOBIN 10.3 g/dl (14.0-18.0); LYMPHOCYTES # 2.4 10^3/ul (0.8-2.9); LYMPHOCYTES % 44.2 % (15.0-51.0); MEAN CORPUSCULAR HEMOGLOBIN 30.6 pg (29.0-33.0); MEAN CORPUSCULAR HGB CONC 33.8 g/dl (32.0-37.0); MEAN CORPUSCULAR VOLUME 90.5 fl (82.0-101.0); MONOCYTE # 0.4 10^3/ul (0.3-0.9); MONOCYTES % 7.6 % (0.0-11.0); NEUTROPHIL # 2.3 10^3/ul (1.6-7.5); NEUTROPHILS % 41.8 % (39.0-77.0); PLATELET COUNT 330 10^3/UL (140-415); RED BLOOD COUNT 3.37 10^6/ul (4.70-6.10); RED CELL DISTRIBUTION WIDTH 13.3 % (11.5-14.5); WHITE BLOOD COUNT 5.4 10^3/ul (4.8-10.8)
[2017-10-24 05:51] LABS: CALCIUM 9.2 mg/dl (8.4-10.2); CREATININE 0.48 mg/dl (0.61-1.24)
[2017-10-24 08:06] VITALS: BP 145/67; RESP 17
[2017-10-24 08:06] LABS: MAGNESIUM 1.8 mg/dl (1.7-2.5); PHOSPHORUS 3.9 mg/dl (2.5-4.9)
[2017-10-24] MEDS: DOCUSATE SODIUM 100 MG CAP PO SCH ×2 (08:22→20:31)
[2017-10-24] MEDS: CHOLECALCIFEROL 2,000 UNIT CAP PO SCH (08:22)
[2017-10-24] MEDS: BACLOFEN 10 MG TAB PO SCH ×3 (08:22→20:32)
[2017-10-24] MEDS: ASCORBIC ACID 500 MG TAB PO SCH ×2 (08:22→20:32)
[2017-10-24] MEDS: FERROUS SULFATE (EC) 325 MG TAB PO SCH ×3 (08:22→20:31)
[2017-10-24] MEDS: GABAPENTIN 100 MG CAP PO SCH ×3 (08:22→20:31)
[2017-10-24] MEDS: FOLIC ACID 1 MG TAB PO SCH (08:22)
[2017-10-24] MEDS: CLOTRIMAZOLE 1% 30 GM CR TOP SCH ×2 (08:23→20:32)
[2017-10-24] MEDS: BISACODYL 10 MG SUPP PR SCH (08:24)
--- NOTE | 2017-10-24 09:55 | PN ---
Date/Time of Note Date/Time of Note DATE: 10/24/17 TIME: 09:53 Assessment/Plan VTE Prophylaxis VTE Prophylaxis Intervention: LMWH Lines/Catheters IV Catheter Type (from [facility]): Saline Lock Urinary Cath still in place: Yes Reason Cath still needed: urinary retention Assessment/Plan Chief Complaint/Hosp Course 1. Complicated urinary tract infection. Continue empiric antibiotics. Final urine cultures pending. No evidence of any septic shock. 2. Sepsis with underlying gram-positive bacteremia. No evidence of any septic shock. Infectious diseases following. 3. Bilateral hydronephrosis and hydroureter. Continue empiric antibiotics. Urology evaluation. S/P Nevarez replacement. 4. Normocytic, normochromic anemia. Monitor H&H closely. The patient already on iron supplements. 5. Neurogenic bladder. Most probably secondary to the patient's spinal cord injury. The patient currently has a Nevarez catheter in place that is draining well. 6. Quadriparesis. Continue supportive care. Turn every 2 hours. 7. DVT prophylaxis. Subcutaneous Lovenox. 8. Plan. Continue empiric antibiotics. Await final cultures and further antibiotic recommendations. Case discussed with Dr. Benitez. Problems: Subjective 24 Hr Interval Summary Free Text/Dictation Remains afebrile. Exam/Review of Systems Vital Signs Vitals Vital Signs Date Time Temp Pulse Resp B/P Pulse Ox O2 Delivery O2 Flow Rate FiO2 10/24/17 08:06 98.4 56 17 145/67 99 10/22/17 20:00 Room Air Intake and Output 10/23/17 10/23/17 10/24/17 15:00 23:00 07:00 Intake Total 400 ml 1810 ml 630 ml Output Total 2460 ml 1000 ml Balance 400 ml -650 ml -370 ml Exam General: Adequately build 62 year-old male lying in bed in no apparent distress. HEENT: Normocephalic, atraumatic. Eyes: Anicteric sclerae, conjunctivae clear. ENT: Nasal septum midline, oral mucosa moist. Neck supple, no JVD noticed. Respiratory: Bilaterally diminished breath sounds. No use of accessory muscles of respiration. No adventitious breath sounds. Cardiovascular: S1, S2 heard. Regular rate and rhythm. Abdomen: Soft, nontender, and nondistended. Bowel sounds positive in all 4 quadrants. Genitourinary: Nevarez catheter in place. Extremities: No cyanosis, no clubbing. Bilateral trace pedal edema. Peripheral pulses palpable. Neurologic: The patient is awake, alert, and oriented. Quadriparesis. Results Result Diagram: 10/24/1744810/24/17448 Results 24 hrs Laboratory Tests Test 10/24/17 04:49 White Blood Count 5.4 Red Blood Count 3.37 L Hemoglobin 10.3 L Hematocrit 30.5 L Mean Corpuscular Volume 90.5 Mean Corpuscular Hemoglobin 30.6 Mean Corpuscular Hemoglobin Concent 33.8 Red Cell Distribution Width 13.3 Platelet Count 330 Mean Platelet Volume 10.0 Neutrophils % 41.8 Lymphocytes % 44.2 Monocytes % 7.6 Eosinophils % 5.6 Basophils % 0.6 Nucleated Red Blood Cells % 0.0 Neutrophils # 2.3 Lymphocytes # 2.4 Monocytes # 0.4 Eosinophils # 0.3 Basophils # 0.0 Nucleated Red Blood Cells # 0.0 Sodium Level 141 Potassium Level 4.0 Chloride Level 105 Carbon Dioxide Level 25 Anion Gap 15 Blood Urea Nitrogen 10 Creatinine 0.48 L Glucose Level 99 Calcium Level 9.2 Phosphorus Level 3.9 Magnesium Level 1.8 Medications Medications Current Medications Acetaminophen (Tylenol Tab) 650 mg Q6H PRN PO PAIN AND OR ELEVATED TEMP; Start 10/21/17 at 23:00 Ascorbic Acid (Vitamin C) 500 mg BID PO Last administered on 10/24/17 08:22; Admin Dose 500 MG; Start 10/22/17 at 09:00 Baclofen (Lioresal) 5 mg TID PO Last administered on 10/24/17 08:22; Admin Dose 5 MG; Start 10/22/17 at 09:00 Bisacodyl (Dulcolax Supp) 10 mg DAILY [place] Last administered on 10/22/17 08:42; Admin Dose 10 MG; Start 10/22/17 at 09:00 Cholecalciferol (Vitamin D) 2,000 unit DAILY PO Last administered on 10/24/17 08:22; Admin Dose 2,000 UNIT; Start 10/22/17 at 09:00 Clotrimazole (Lotrimin Cr) 1 applic BID TOP Last administered on 10/24/17 08: 23; Admin Dose 1 APPLIC; Start 10/22/17 at 09:00 Docusate Sodium (Colace) 100 mg BID PO Last administered on 10/24/17 08:22; Admin Dose 100 MG; Start 10/22/17 at 09:00 Enoxaparin Sodium (Lovenox) 40 mg Q24H SC Last administered on 10/23/17 22:32 ; Admin Dose 40 MG; Start 10/21/17 at 23:00 Ferrous Sulfate (Ferrous Sulfate (Ec)) 325 mg TID PO Last administered on 08:22; Admin Dose 325 MG; Start 10/22/17 at 09:00 Folic Acid (Folic Acid) 1 mg DAILY PO Last administered on 10/24/17 08:22; Admin Dose 1 MG; Start 10/22/17 at 09:00 Gabapentin (Neurontin) 100 mg TID PO Last administered on 10/24/17 08:22; Admin Dose 100 MG; Start 10/22/17 at 09:00 Senna (Senokot) 1 tab QHS PO Last administered on 10/23/17 20:06; Admin Dose 1 TAB; Start 10/22/17 at 21:00 Simethicone (Mylicon) 80 mg QID PO Last administered on 10/24/17 08:22; Admin Dose 80 MG; Start 10/22/17 at 09:00 Ondansetron HCl (Zofran Inj) 4 mg Q6H PRN IV NAUSEA AND/OR VOMITING; Start at 23:00 Acetaminophen/ Hydrocodone Bitart ([place] (5/325)) 1 tab Q6H PRN PO MODERATE PAIN LEVEL 4-6 Last administered on 10/24/17 05:35; Admin Dose 1 TAB; Start at 23:00 Miscellaneous Information This patient mendez... PRN PRN XX WOUND CARE; Start 10/22 at 02:00 Vancomycin HCl (Vancocin) 250 ml @ 125 mls/hr Q12H IVPB Last administered on 10/24/17 01:50; Admin Dose 125 MLS/HR; Start 10/23/17 at 14:00 Miscellaneous Information VANCO TROUGH @ 1,300 ON ... ONCE ONCE XX ; Start at 13:00; Stop 10/24/17 at 13:01 Ertapenem/Sodium Chloride (Invanz/NS) 100 ml @ 200 mls/hr Q24H IVPB Last administered on 10/23/17t 11:46; Admin Dose 200 MLS/HR; Start 10/23/17 at 11:30 TARAH FONG NP Oct 24, 2017 09:55
[2017-10-24] MEDS ORDERED: BISACODYL (EC) 5 MG TAB PO PRN (10:30)
[2017-10-24] MEDS: ERTAPENEM SODIUM 1 GM in SOD CHLORIDE 0.9% 100 ML IVPB SCH (11:32)
--- NOTE | 2017-10-24 14:06 | CONS ---
Date/Time of Note Date/Time of Note DATE: 10/24/17 TIME: 14:02 Consult Date/Type/Reason Admit Date/Time Oct 21, 2017 at 22:02 Initial Consult Date 10/23/17 Type of Consultation: Urology Reason for Consultation Urinary retention and hydronephrosis even with the catheter in place. Ordering Provider: TARAH FONG NP Subjective The patient is comfortable he denies having any pain. Objective Vital Signs Date Time Temp Pulse Resp B/P Pulse Ox O2 Delivery O2 Flow Rate FiO2 10/24/17 08:06 98.4 56 17 145/67 99 10/22/17 20:00 Room Air Intake and Output 10/23/17 10/23/17 10/24/17 15:00 23:00 07:00 Intake Total 400 ml 1810 ml 630 ml Output Total 2460 ml 1000 ml Balance 400 ml -650 ml -370 ml Exam Alert, awake, the Rodrigues catheter is draining well. There is no kinking in the Rodrigues catheter. Results/Medications Result Diagram: 10/24/17 0449 10/24/17 0449 Results 24 hrs Laboratory Tests Test 10/24/17 04:49 White Blood Count 5.4 Red Blood Count 3.37 L Hemoglobin 10.3 L Hematocrit 30.5 L Mean Corpuscular Volume 90.5 Mean Corpuscular Hemoglobin 30.6 Mean Corpuscular Hemoglobin Concent 33.8 Red Cell Distribution Width 13.3 Platelet Count 330 Mean Platelet Volume 10.0 Neutrophils % 41.8 Lymphocytes % 44.2 Monocytes % 7.6 Eosinophils % 5.6 Basophils % 0.6 Nucleated Red Blood Cells % 0.0 Neutrophils # 2.3 Lymphocytes # 2.4 Monocytes # 0.4 Eosinophils # 0.3 Basophils # 0.0 Nucleated Red Blood Cells # 0.0 Sodium Level 141 Potassium Level 4.0 Chloride Level 105 Carbon Dioxide Level 25 Anion Gap 15 Blood Urea Nitrogen 10 Creatinine 0.48 L Glucose Level 99 Calcium Level 9.2 Phosphorus Level 3.9 Magnesium Level 1.8 Medications Current Medications Acetaminophen (Tylenol Tab) 650 mg Q6H PRN PO PAIN AND OR ELEVATED TEMP; Start 10/21/17 at 23:00 Ascorbic Acid (Vitamin C) 500 mg BID PO Last administered on 10/24/17t 08:22; Admin Dose 500 MG; Start 10/22/17 at 09:00 Baclofen (Lioresal) 5 mg TID PO Last administered on 10/24/17 12:38; Admin Dose 5 MG; Start 10/22/17 at 09:00 Bisacodyl (Dulcolax Supp) 10 mg DAILY [place] Last administered on 10/22/17 08:42; Admin Dose 10 MG; Start 10/22/17 at 09:00 Cholecalciferol (Vitamin D) 2,000 unit DAILY PO Last administered on 10/24/17 08:22; Admin Dose 2,000 UNIT; Start 10/22/17 at 09:00 Clotrimazole (Lotrimin Cr) 1 applic BID TOP Last administered on 10/24/17 08: 23; Admin Dose 1 APPLIC; Start 10/22/17 at 09:00 Docusate Sodium (Colace) 100 mg BID PO Last administered on 10/24/17 08:22; Admin Dose 100 MG; Start 10/22/17 at 09:00 Enoxaparin Sodium (Lovenox) 40 mg Q24H [place] Last administered on 10/23/17 22:32 ; Admin Dose 40 MG; Start 10/21/17 at 23:00 Ferrous Sulfate (Ferrous Sulfate (Ec)) 325 mg TID PO Last administered on 12:38; Admin Dose 325 MG; Start 10/22/17 at 09:00 Folic Acid (Folic Acid) 1 mg DAILY PO Last administered on 10/24/17 08:22; Admin Dose 1 MG; Start 10/22/17 at 09:00 Gabapentin (Neurontin) 100 mg TID PO Last administered on 10/24/17 12:38; Admin Dose 100 MG; Start 10/22/17 at 09:00 Senna (Senokot) 1 tab QHS PO Last administered on 10/23/17 20:06; Admin Dose 1 TAB; Start 10/22/17 at 21:00 Simethicone (Mylicon) 80 mg QID PO Last administered on 10/24/17 12:38; Admin Dose 80 MG; Start 10/22/17 at 09:00 Ondansetron HCl (Zofran Inj) 4 mg Q6H PRN IV NAUSEA AND/OR VOMITING; Start at 23:00 Acetaminophen/ Hydrocodone Bitart ([place] (5/325)) 1 tab Q6H PRN PO MODERATE PAIN LEVEL 4-6 Last administered on 10/24/17 05:35; Admin Dose 1 TAB; Start at 23:00 Miscellaneous Information This patient mendez... 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 The patient had cervical fracture resulting in quadriplegia. He has been bedridden state and has an indwelling Rodrigues catheter. He was sent by nursing facility because of decreased urine output and the patient is complaining of suprapubic pain. Patient had no fever no nausea vomiting or diarrhea. He has a history of neurogenic bowel and bladder. He states he had one episode similar to this approx [address] scan of abdomen and pelvis done showed: 1. Distended urinary bladder despite a Rodrigues catheter may indicate a blocked catheter. There are calcifications on the Rodrigues catheter balloon and there are calculi layering dependently in the urinary bladder. Mild bladder wall thickening with edema in the surrounding fat is concerning for cystitis. Recommend correlation with urinalysis. 2. Mild to moderate bilateral hydronephrosis and hydroureter with bilateral perinephric and periureteral fat stranding may be due to reflux related to the distended urinary bladder. Upper urinary tract infection with pyelonephritis cannot be excluded. Negative for renal or ureteral calculi. 3. Colonic diverticulosis without diverticulitis. Normal appendix. I removed the old Rodrigues yesterday and there was no calcification on it.Also the drainage bag was full. I inserted a new catheter 18Fr.(one that does not kink) and the new Rodrigues is draining well and has no kinking. Most likely the old rodrigues was kinked at the time of the CT scan Problems: BENSON PIKE MD Oct 24, 2017 14:06
[2017-10-24 14:43] VITALS: BP 147/67; RESP 18
[2017-10-24 20:17] VITALS: BP 134/65; RESP 19
[2017-10-24] MEDS: SENNA TAB PO SCH (20:31)
--- NOTE | 2017-10-24 20:41 | CONS ---
Date/Time of Note Date/Time of Note DATE: 10/24/17 TIME: 20:40 Assessment/Plan Assessment/Plan Additional Assessment/Plan 1. Bilateral Hydronpehrosis with hydroureter 2. complicated UTI 3. Neurogenci bladder 4. Quadriplegia Plan: IV abx, Urine Cx grew gram neg prasad. pt my have chronic hydronephrosis, currently Cr normal, Uric acid normal, Mag 1.8normal will follow up Consultation Date/Type/Reason Admit Date/Time Oct 21, 2017 at 22:02 Initial Consult Date 10/23/17 Type of Consultation: NEPHROLOGY Referring Provider: TARAH FONG EXTENSION CLERK Exam/Review of Systems Vital Signs Vitals Vital Signs Date Time Temp Pulse Resp B/P Pulse Ox O2 Delivery O2 Flow Rate FiO2 10/24/17 14:43 98.5 58 18 147/67 99 10/22/17 20:00 Room Air Intake and Output 10/23/17 10/23/17 10/24/17 14:59 22:59 06:59 Intake Total 400 ml 1810 ml 630 ml Output Total 2460 ml 1000 ml Balance 400 ml -650 ml -370 ml Exam General: awake,alert, no acute distress HEENT: Normocephalic, atraumatic. Respiratory: Bilaterally diminished breath sounds. Cardiovascular: S1, S2 heard. Regular rate and rhythm. Abdomen: Soft, nontender, and nondistended. BS + Genitourinary: Nevarez catheter in place. Extremities: No cyanosis, no clubbing. Bilateral trace pedal edema. Peripheral pulses palpable. Neurologic: Quadriparesis Results Result Diagram: 10/24/17 0449 10/24/17 0449 Results 24 hrs Laboratory Tests Test 10/24/17 04:49 10/24/17 14:13 White Blood Count 5.4 Red Blood Count 3.37 L Hemoglobin 10.3 L Hematocrit 30.5 L Mean Corpuscular Volume 90.5 Mean Corpuscular Hemoglobin 30.6 Mean Corpuscular Hemoglobin Concent 33.8 Red Cell Distribution Width 13.3 Platelet Count 330 Mean Platelet Volume 10.0 Neutrophils % 41.8 Lymphocytes % 44.2 Monocytes % 7.6 Eosinophils % 5.6 Basophils % 0.6 Nucleated Red Blood Cells % 0.0 Neutrophils # 2.3 Lymphocytes # 2.4 Monocytes # 0.4 Eosinophils # 0.3 Basophils # 0.0 Nucleated Red Blood Cells # 0.0 Sodium Level 141 Potassium Level 4.0 Chloride Level 105 Carbon Dioxide Level 25 Anion Gap 15 Blood Urea Nitrogen 10 Creatinine 0.48 L Glucose Level 99 Calcium Level 9.2 Phosphorus Level 3.9 Magnesium Level 1.8 Vancomycin Level Trough 11.9 Medications Medications Current Medications Acetaminophen (Tylenol Tab) 650 mg Q6H PRN PO PAIN AND OR ELEVATED TEMP; Start 10/21/17 at 23:00 Ascorbic Acid (Vitamin C) 500 mg BID PO Last administered on 10/24/17 08:22; Admin Dose 500 MG; Start 10/22/17 at 09:00 Baclofen (Lioresal) 5 mg TID PO Last administered on 10/24/17 12:38; Admin Dose 5 MG; Start 10/22/17 at 09:00 Bisacodyl (Dulcolax Supp) 10 mg DAILY [place] Last administered on 10/22/17 08:42; Admin Dose 10 MG; Start 10/22/17 at 09:00 Cholecalciferol (Vitamin D) 2,000 unit DAILY PO Last administered on 10/24/17 08:22; Admin Dose 2,000 UNIT; Start 10/22/17 at 09:00 Clotrimazole (Lotrimin Cr) 1 applic BID TOP Last administered on 10/24/17 08: 23; Admin Dose 1 APPLIC; Start 10/22/17 at 09:00 Docusate Sodium (Colace) 100 mg BID PO Last administered on 10/24/17 08:22; Admin Dose 100 MG; Start 10/22/17 at 09:00 Enoxaparin Sodium (Lovenox) 40 mg Q24H SC Last administered on 10/23/17 22:32 ; Admin Dose 40 MG; Start 10/21/17 at 23:00 Ferrous Sulfate (Ferrous Sulfate (Ec)) 325 mg TID PO Last administered on 12:38; Admin Dose 325 MG; Start 10/22/17 at 09:00 Folic Acid (Folic Acid) 1 mg DAILY PO Last administered on 10/24/17 08:22; Admin Dose 1 MG; Start 10/22/17 at 09:00 Gabapentin (Neurontin) 100 mg TID PO Last administered on 10/24/17 12:38; Admin Dose 100 MG; Start 10/22/17 at 09:00 Senna (Senokot) 1 tab QHS PO Last administered on 10/23/17 20:06; Admin Dose 1 TAB; Start 10/22/17 at 21:00 Simethicone (Mylicon) 80 mg QID PO Last administered on 10/24/17 17:09; Admin Dose 80 MG; Start 10/22/17 at 09:00 Ondansetron HCl (Zofran Inj) 4 mg Q6H PRN IV NAUSEA AND/OR VOMITING; Start at 23:00 Acetaminophen/ Hydrocodone Bitart ([place] (5/325)) 1 tab Q6H PRN PO MODERATE PAIN LEVEL 4-6 Last administered on 10/24/17 17:09; Admin Dose 1 TAB; Start at 23:00 Miscellaneous Information This patient mendez... PRN PRN XX WOUND CARE; Start 10/22 at 02:00 Vancomycin HCl 250 ml @ 125 mls/hr Q12H IVPB Last administered on 10/24/17 15 :39; Admin Dose 125 MLS/HR; Start 10/23/17 at 14:00 Ertapenem/Sodium Chloride (Invanz/NS) 100 ml @ 200 mls/hr Q24H IVPB Last administered on 10/24/17 11:32; Admin Dose 200 MLS/HR; Start 10/23/17 at 11:30 Bisacodyl (Dulcolax) 10 mg DAILY PRN PO CONSTIPATION; Start 10/24/17 at 10:30 JOSE MAUNEL WILL MD Oct 24, 2017 20:41
--- NOTE | 2017-10-24 20:51 | PN ---
DATE: 10/24/2017 INFECTIOUS DISEASE PROGRESS NOTE SUBJECTIVE: No events overnight. The patient is alert, feels good. Denies pain, discomfort. No f melida. LABORATORY DATA: WBC 5.4, no shift, no bands. BUN 10, creatinine 0.48. MICROBIOLOGY: Blood culture growing staph species. Urine culture growing gram-negative rods. Repe at blood cultures negative. ANTIMICROBIALS: The patient is on: 1. Vancomycin. 2. Invanz. PHYSICAL EXAMINATION: GENERAL: Well-developed, paraplegic, elderly man who is alert, in no distress. HEENT: Head atraumatic, normocephalic. Sclerae anicteric. Buccal mucosa pink. NECK: Supple. CHEST: Rise symmetrical. Breath sounds diminished to bases. HEART: S1, S2. ABDOMEN: Soft. Bowel tones present. EXTREMITIES: Without cyanosis. ASSESSMENT: 1. Urinary tract infection. 2. Coagulase-negative staph bacteremia. 3. Bilateral hydronephrosis and hydroureter status post Nevarez catheter changed by urology. 4. Quadriparesis. 5. Neurogenic bladder. PLAN: The patient remains stable. Continue present care. Continue antibiotics. Await for final c ultures. Dictated By: S[employer]A BH[employer] PRODUCT MANAGER [employer]CIAL SERVICES for SOWMYA PEÑA MD NI/NTS Conf#: [id number] DID#: [id number] CC: KADY MCGARRY MD;*EndCC*
[2017-10-24] MEDS: ENOXAPARIN 40 MG/0.4 ML SYG SC SCH (23:36)
[2017-10-25] MEDS: VANCOMYCIN 1 GM in NS 250 ML IVPB SCH ×2 (01:49→13:33)
[2017-10-25] MEDS: HYDROCODONE/APAP (5/325) TAB PO PRN ×2 (01:56→10:06)
[2017-10-25 02:18] VITALS: BP 147/68; RESP 18
[2017-10-25 05:35] LABS: BASOPHILS % 0.4 % (0.0-2.0); EOSINOPHILS # 0.3 10^3/ul (0.0-0.5); EOSINOPHILS % 5.8 % (0.0-7.0); HEMATOCRIT 33.1 % (42.0-52.0); HEMOGLOBIN 11.4 g/dl (14.0-18.0); LYMPHOCYTES # 2.2 10^3/ul (0.8-2.9); LYMPHOCYTES % 45.7 % (15.0-51.0); MEAN CORPUSCULAR HGB CONC 34.4 g/dl (32.0-37.0); MEAN CORPUSCULAR VOLUME 89.9 fl (82.0-101.0); MEAN PLATELET VOLUME 9.5 fl (7.4-10.4); MONOCYTE # 0.4 10^3/ul (0.3-0.9); MONOCYTES % 8.6 % (0.0-11.0); NEUTROPHIL # 1.9 10^3/ul (1.6-7.5); NEUTROPHILS % 39.3 % (39.0-77.0); PLATELET COUNT 341 10^3/UL (140-415); RED BLOOD COUNT 3.68 10^6/ul (4.70-6.10); RED CELL DISTRIBUTION WIDTH 13.2 % (11.5-14.5); WHITE BLOOD COUNT 4.9 10^3/ul (4.8-10.8)
[2017-10-25 06:00] LABS: MAGNESIUM 1.7 mg/dl (1.7-2.5); PHOSPHORUS 4.2 mg/dl (2.5-4.9)
[2017-10-25 06:07] LABS: CALCIUM 9.6 mg/dl (8.4-10.2); CREATININE 0.46 mg/dl (0.61-1.24); POTASSIUM 4.1 mmol/L (3.5-5.1)
[2017-10-25 08:02] VITALS: BP 111/67; RESP 18
[2017-10-25] MEDS: CHOLECALCIFEROL 2,000 UNIT CAP PO SCH (08:55)
[2017-10-25] MEDS: GABAPENTIN 100 MG CAP PO SCH ×3 (08:55→23:04)
[2017-10-25] MEDS: BACLOFEN 10 MG TAB PO SCH ×3 (08:55→23:02)
[2017-10-25] MEDS: FOLIC ACID 1 MG TAB PO SCH (08:55)
[2017-10-25] MEDS: ASCORBIC ACID 500 MG TAB PO SCH ×2 (08:55→23:01)
[2017-10-25] MEDS: FERROUS SULFATE (EC) 325 MG TAB PO SCH ×3 (08:55→23:01)
[2017-10-25] MEDS: DOCUSATE SODIUM 100 MG CAP PO SCH ×2 (08:55→23:01)
[2017-10-25] MEDS: BISACODYL 10 MG SUPP PR SCH (08:55)
[2017-10-25] MEDS: CLOTRIMAZOLE 1% 30 GM CR TOP SCH ×2 (08:56→23:23)
[2017-10-25] MEDS: ERTAPENEM SODIUM 1 GM in SOD CHLORIDE 0.9% 100 ML IVPB SCH (11:53)
--- NOTE | 2017-10-25 14:14 | PN ---
Date/Time of Note Date/Time of Note DATE: 10/25/17 TIME: 14:06 Assessment/Plan VTE Prophylaxis VTE Prophylaxis Intervention: LMWH Lines/Catheters IV C[facility]ter Type (from [facility] Saline Lock Urinary Cath still in place: Yes Reason Cath still needed: urinary retention, other (indicate) (neurogenic bladder) Assessment/Plan Assessment/Plan 1. Complicated urinary tract infection. Final cultures reviewed, ID to adjust antibiotics, 2. Sepsis with underlying gram-positive bacteremia. No evidence of any septic shock. Infectious diseases following. 3. Bilateral hydronephrosis and hydroureter. Continue empiric antibiotics. Urology evaluation. S/P Nevarez replacement. 4. Normocytic, normochromic anemia. Monitor H&H closely. The patient already on iron supplements. 5. Neurogenic bladder. Most probably secondary to the patient's spinal cord injury. The patient currently has a Nevarez catheter in place that is draining well. 6. Quadriparesis. Continue supportive care. Turn every 2 hours. 7. DVT prophylaxis. Subcutaneous Lovenox. 8. Plan. : Follow ID antibiotic regimen recommendations, begin discharge planning. Janell marrero has chosen not to return to the prison facility from where he was sent due to the fact that he states that he received very poor And as such case management is working on optional placement. Continue supportive care. Exam/Review of Systems Vital Signs Vitals Vital Signs Date Time Temp Pulse Resp B/P Pulse Ox O2 Delivery O2 Flow Rate FiO2 10/25/17 08:02 97.9 60 18 111/67 98 10/22/17 20:00 Room Air Intake and Output 10/24/17 10/24/17 10/25/17 15:00 23:00 07:00 Intake Total 100 ml 1010 ml 250 ml Output Total 1000 ml Balance 100 ml 10 ml 250 ml Exam General: Adequately build 62 year-old male lying in bed in no apparent distress. HEENT: Normocephalic, atraumatic. Eyes: Anicteric sclerae, conjunctivae clear. ENT: Nasal septum midline, oral mucosa moist. Neck supple, no JVD noticed. Respiratory: Bilaterally diminished breath sounds. No use of accessory muscles of respiration. No adventitious breath sounds. Cardiovascular: S1, S2 heard. Regular rate and rhythm. Abdomen: Soft, nontender, and nondistended. Bowel sounds positive in all 4 quadrants. Genitourinary: Nevarez catheter in place. Extremities: No cyanosis, no clubbing. Bilateral trace pedal edema. Peripheral pulses palpable. Neurologic: The patient is awake, alert, and oriented. Quadriparesis. Results Result Diagram: 10/25/17 0459 10/25/17 0459 Results 24 hrs Laboratory Tests Test 10/24/17 14:13 10/25/17 04:59 Vancomycin Level Trough 11.9 White Blood Count 4.9 Red Blood Count 3.68 L Hemoglobin 11.4 L Hematocrit 33.1 L Mean Corpuscular Volume 89.9 Mean Corpuscular Hemoglobin 31.0 Mean Corpuscular Hemoglobin Concent 34.4 Red Cell Distribution Width 13.2 Platelet Count 341 Mean Platelet Volume 9.5 Neutrophils % 39.3 Lymphocytes % 45.7 Monocytes % 8.6 Eosinophils % 5.8 Basophils % 0.4 Nucleated Red Blood Cells % 0.0 Neutrophils # 1.9 Lymphocytes # 2.2 Monocytes # 0.4 Eosinophils # 0.3 Basophils # 0.0 Nucleated Red Blood Cells # 0.0 Sodium Level 142 Potassium Level 4.1 Chloride Level 105 Carbon Dioxide Level 27 Anion Gap 14 Blood Urea Nitrogen 10 Creatinine 0.46 L Glucose Level 101 Calcium Level 9.6 Phosphorus Level 4.2 Magnesium Level 1.7 Medications Medications Current Medications Acetaminophen (Tylenol Tab) 650 mg Q6H PRN PO PAIN AND OR ELEVATED TEMP; Start 10/21/17 at 23:00 Ascorbic Acid (Vitamin C) 500 mg BID PO Last administered on 10/25/17 08:55; Admin Dose 500 MG; Start 10/22/17 at 09:00 Baclofen (Lioresal) 5 mg TID PO Last administered on 10/25/17 13:33; Admin Dose 5 MG; Start 10/22/17 at 09:00 Bisacodyl (Dulcolax Supp) 10 mg DAILY [place] Last administered on 10/25/17 08:55; Admin Dose 10 MG; Start 10/22/17 at 09:00 Cholecalciferol (Vitamin D) 2,000 unit DAILY PO Last administered on 10/25/17 08:55; Admin Dose 2,000 UNIT; Start 10/22/17 at 09:00 Clotrimazole (Lotrimin Cr) 1 applic BID TOP Last administered on 10/25/17 08: 56; Admin Dose 1 APPLIC; Start 10/22/17 at 09:00 Docusate Sodium (Colace) 100 mg BID PO Last administered on 10/25/17 08:55; Admin Dose 100 MG; Start 10/22/17 at 09:00 Enoxaparin Sodium (Lovenox) 40 mg Q24H SC Last administered on 10/24/17 23:36 ; Admin Dose 40 MG; Start 10/21/17 at 23:00 Ferrous Sulfate (Ferrous Sulfate (Ec)) 325 mg TID PO Last administered on 13:32; Admin Dose 325 MG; Start 10/22/17 at 09:00 Folic Acid (Folic Acid) 1 mg DAILY PO Last administered on 10/25/17 08:55; Admin Dose 1 MG; Start 10/22/17 at 09:00 Gabapentin (Neurontin) 100 mg TID PO Last administered on 10/25/17 13:32; Admin Dose 100 MG; Start 10/22/17 at 09:00 Senna (Senokot) 1 tab QHS PO Last administered on 10/24/17 20:31; Admin Dose 1 TAB; Start 10/22/17 at 21:00 Simethicone (Mylicon) 80 mg QID PO Last administered on 10/25/17 13:32; Admin Dose 80 MG; Start 10/22/17 at 09:00 Ondansetron HCl (Zofran Inj) 4 mg Q6H PRN IV NAUSEA AND/OR VOMITING; Start at 23:00 Acetaminophen/ Hydrocodone Bitart ([place] (5/325)) 1 tab Q6H PRN PO MODERATE PAIN LEVEL 4-6 Last administered on 10/25/17 10:06; Admin Dose 1 TAB; Start at 23:00 Miscellaneous Information This patient mendez... PRN PRN XX WOUND CARE; Start 10/22 at 02:00 Vancomycin HCl 250 ml @ 125 mls/hr Q12H IVPB Last administered on 10/25/17 13 :33; Admin Dose 125 MLS/HR; Start 10/23/17 at 14:00 Ertapenem/Sodium Chloride (Invanz/NS) 100 ml @ 200 mls/hr Q24H IVPB Last administered on 10/25/17 11:53; Admin Dose 200 MLS/HR; Start 10/23/17 at 11:30 Bisacodyl (Dulcolax) 10 mg DAILY PRN PO CONSTIPATION Last administered on t 02:33; Admin Dose 10 MG; Start 10/24/17 at 10:30 ORAL ALLISON Oct 25, 2017 14:14
[2017-10-25] MEDS ORDERED: TOBRAMYCIN IV PER PHARMACY XX SCH (15:00)
[2017-10-25 15:18] VITALS: BP 103/56; RESP 18
[2017-10-25] MEDS: HYDROCODONE/APAP (10/325) TAB PO PRN ×2 (15:29→23:01)
--- NOTE | 2017-10-25 15:41 | PN ---
DATE: 10/25/2017 SUBJECTIVE: No acute events overnight. The patient is alert, looks comfortable. Denies pain, no f melida. LABORATORY DATA: WBC 4.9, no shift, no bands. BUN 10, creatinine 0.46. MICROBIOLOGY: Blood culture grew coagulase-negative staph species on admission. Repeat blood cultu res negative. Urine culture growing multidrug resistant Morganella morganii and Enterococcus specie s. PHYSICAL EXAMINATION: GENERAL: Well-developed, elderly man in no distress. HEENT: Head atraumatic, normocephalic. Sclerae anicteric. Buccal mucosa dry. NECK: Supple. CHEST: Rise symmetrical. Breath sounds diminished to bases. HEART: S1, S2. ABDOMEN: Soft. Bowel tones present. ASSESSMENT: 1. Status post sepsis on admission. 2. Multidrug resistant urinary tract infection. 3. Coagulase-negative staph bacteremia consistent with contaminant. 4. Quadriparesis and neurogenic bladder. 5. Bilateral hydronephrosis and hydroureter, status post Nevarez catheter being changed. PLAN: The patient remains stable. We are going to start him on tobramycin and ampicillin. Discont inue vancomycin and Invanz. Dictated By: SANTA BHAT HIDE BUYER for SOWMYA HENNESSY/CASTILLO Conf#: [id number] DID#: [id number]
[2017-10-25] MEDS: SOD CHLORIDE 0.9% IVPB SCH (17:20)
[2017-10-25] MEDS: TOBRAMYCIN IVPB SCH (17:20)
[2017-10-25] MEDS ORDERED: NA PHOSPHATE/BIPHOS 133 ML ENEMA PR ONE (17:30)
[2017-10-25 20:00] VITALS: BP 95/58; RESP 18
--- NOTE | 2017-10-25 21:37 | CONS ---
Date/Time of Note Date/Time of Note DATE: 10/25/17 TIME: 21:35 Assessment/Plan Assessment/Plan Additional Assessment/Plan 1. Bilateral Hydronpehrosis with hydroureter 2. complicated UTI 3. Neurogenci bladder 4. Quadriplegia Plan: IV abx, Urine Cx grew morganella and Enterococcus pt my have chronic hydronephrosis, currently Cr normal, Uric acid normal, Mag 1.8normal will follow up Consultation Date/Type/Reason Admit Date/Time Oct 21, 2017 at 22:02 Initial Consult Date 10/23/17 Type of Consultation: NEPHROLOGY Referring Provider: TARAH FONG NP 24 HR Interval Summary Free Text/Dictation Cr normal, Adequate urine output, BP stable Exam/Review of Systems Vital Signs Vitals Vital Signs Date Time Temp Pulse Resp B/P Pulse Ox O2 Delivery O2 Flow Rate FiO2 10/25/17 15:18 98.3 63 18 103/56 98 10/22/17 20:00 Room Air Intake and Output 10/24/17 10/24/17 10/25/17 14:59 22:59 06:59 Intake Total 100 ml 1010 ml 250 ml Output Total 1000 ml Balance 100 ml 10 ml 250 ml Results Result Diagram: 10/25/17 0459 10/25/17 0459 Results 24 hrs Laboratory Tests Test 10/25/17 04:59 White Blood Count 4.9 Red Blood Count 3.68 L Hemoglobin 11.4 L Hematocrit 33.1 L Mean Corpuscular Volume 89.9 Mean Corpuscular Hemoglobin 31.0 Mean Corpuscular Hemoglobin Concent 34.4 Red Cell Distribution Width 13.2 Platelet Count 341 Mean Platelet Volume 9.5 Neutrophils % 39.3 Lymphocytes % 45.7 Monocytes % 8.6 Eosinophils % 5.8 Basophils % 0.4 Nucleated Red Blood Cells % 0.0 Neutrophils # 1.9 Lymphocytes # 2.2 Monocytes # 0.4 Eosinophils # 0.3 Basophils # 0.0 Nucleated Red Blood Cells # 0.0 Sodium Level 142 Potassium Level 4.1 Chloride Level 105 Carbon Dioxide Level 27 Anion Gap 14 Blood Urea Nitrogen 10 Creatinine 0.46 L Glucose Level 101 Calcium Level 9.6 Phosphorus Level 4.2 Magnesium Level 1.7 Medications Medications Current Medications Acetaminophen (Tylenol Tab) 650 mg Q6H PRN PO PAIN AND OR ELEVATED TEMP; Start 10/21/17 at 23:00 Ascorbic Acid (Vitamin C) 500 mg BID PO Last administered on 10/25/17 08:55; Admin Dose 500 MG; Start 10/22/17 at 09:00 Baclofen (Lioresal) 5 mg TID PO Last administered on 10/25/17 13:33; Admin Dose 5 MG; Start 10/22/17 at 09:00 Bisacodyl (Dulcolax Supp) 10 mg DAILY [place] Last administered on 10/25/17 08:55; Admin Dose 10 MG; Start 10/22/17 at 09:00 Cholecalciferol (Vitamin D) 2,000 unit DAILY PO Last administered on 10/25/17 08:55; Admin Dose 2,000 UNIT; Start 10/22/17 at 09:00 Clotrimazole (Lotrimin Cr) 1 applic BID TOP Last administered on 10/25/17 08: 56; Admin Dose 1 APPLIC; Start 10/22/17 at 09:00 Docusate Sodium (Colace) 100 mg BID PO Last administered on 10/25/17 08:55; Admin Dose 100 MG; Start 10/22/17 at 09:00 Enoxaparin Sodium (Lovenox) 40 mg Q24H SC Last administered on 10/24/17 23:36 ; Admin Dose 40 MG; Start 10/21/17 at 23:00 Ferrous Sulfate (Ferrous Sulfate (Ec)) 325 mg TID PO Last administered on 13:32; Admin Dose 325 MG; Start 10/22/17 at 09:00 Folic Acid (Folic Acid) 1 mg DAILY PO Last administered on 10/25/17 08:55; Admin Dose 1 MG; Start 10/22/17 at 09:00 Gabapentin (Neurontin) 100 mg TID PO Last administered on 10/25/17 13:32; Admin Dose 100 MG; Start 10/22/17 at 09:00 Senna (Senokot) 1 tab QHS PO Last administered on 10/24/17 20:31; Admin Dose 1 TAB; Start 10/22/17 at 21:00 Simethicone (Mylicon) 80 mg QID PO Last administered on 10/25/17 17:19; Admin Dose 80 MG; Start 10/22/17 at 09:00 Ondansetron HCl (Zofran Inj) 4 mg Q6H PRN IV NAUSEA AND/OR VOMITING; Start at 23:00 Miscellaneous Information (Pending Santyl Order For Wound Care) This patient mendez... PRN PRN XX WOUND CARE; Start 10/22/17 at 02:00 Bisacodyl (Dulcolax) 10 mg DAILY PRN PO CONSTIPATION Last administered on 02:33; Admin Dose 10 MG; Start 10/24/17 at 10:30 Acetaminophen/ Hydrocodone Bitart ([place] (10325)) 1 tab Q6H PRN PO MODERATE PAIN LEVEL 4-6 Last administered on 10/25/17 15:29; Admin Dose 1 TAB; Start at 14:30 Tobramycin TOBRAMYCIN PER PHARMACY NOTE XX ; Start 10/25/17 at 15:00 Ampicillin 50 ml @ 100 mls/hr Q8 IVPB ; Start 10/25/17 at 22:00 Tobramycin/Sodium Chloride (Tobramycin/NS) 108.25 ml @ 103.75 mls/hr Q24H IVPB Last administered on 10/25/17 17:20; Admin Dose 103.75 MLS/HR; Start at 17:00 Miscellaneous Information (*Rx Drug Level Order Reminder*) 1 ONCE ONCE XX ; Start 10/26/17 at 03:00; Stop 10/26/17 at 03:01 JOSE MANUEL WILL MD Oct 25, 2017 21:37
[2017-10-25] MEDS: SENNA TAB PO SCH (23:02)
[2017-10-25] MEDS: ENOXAPARIN 40 MG/0.4 ML SYG SC SCH (23:03)
[2017-10-25] MEDS: AMPICILLIN 1 GM/NS (PMX) 50 ML IVPB SCH (23:22)
[2017-10-26] MEDS ORDERED: [UNRECOGNIZED DRUG - REMARK] XX ONE (03:00)
[2017-10-26 03:21] VITALS: BP 114/60; RESP 19
[2017-10-26] MEDS: AMPICILLIN 1 GM/NS (PMX) 50 ML IVPB SCH ×3 (06:36→22:36)
[2017-10-26] MEDS: HYDROCODONE/APAP (10/325) TAB PO PRN ×2 (06:37→14:18)
[2017-10-26 08:00] VITALS: BP 114/53; RESP 18
--- NOTE | 2017-10-26 08:19 | CONS ---
Date/Time of Note Date/Time of Note DATE: 10/26/17 TIME: :17 Consult Date/Type/Reason Admit Date/Time Oct 21, 2017 at 22:02 Initial Consult Date 10/23/17 Type of Consultation: Urology Reason for Consultation Urinary retention Ordering Provider: TARAH FONG REVENUE SETTLEMENTS ADMINISTRATOR Subjective Patient is comfortable, has no complaints Objective Vital Signs Date Time Temp Pulse Resp B/P Pulse Ox O2 Delivery O2 Flow Rate FiO2 10/26/17 03:21 97.7 54 19 114/60 99 10/22/17 20:00 Room Air Intake and Output 10/25/17 10/25/17 10/26/17 14:59 22:59 06:59 Intake Total 1168.25 ml 340 ml Output Total 1400 ml 1100 ml 500 ml Balance -1400 ml 68.25 ml -160 ml Exam Rodrigues catheter is draining clear urine, the bladder is not distended Results/Medications Result Diagram: 10/25/17 0459 10/25/17 0459 Results 24 hrs Laboratory Tests Test 10/26/17 05:22 Random Tobramycin Level 2.4 Medications Current Medications Acetaminophen (Tylenol Tab) 650 mg Q6H PRN PO PAIN AND OR ELEVATED TEMP; Start 10/21/17 at 23:00 Ascorbic Acid (Vitamin C) 500 mg BID PO Last administered on 10/25/17 23:01; Admin Dose 500 MG; Start 10/22/17 at 09:00 Baclofen (Lioresal) 5 mg TID PO Last administered on 10/25/17 23:02; Admin Dose 5 MG; Start 10/22/17 at 09:00 Bisacodyl (Dulcolax Supp) 10 mg DAILY [place] Last administered on 10/25/17 08:55; Admin Dose 10 MG; Start 10/22/17 at 09:00 Cholecalciferol (Vitamin D) 2,000 unit DAILY PO Last administered on 10/25/17 08:55; Admin Dose 2,000 UNIT; Start 10/22/17 at 09:00 Clotrimazole (Lotrimin Cr) 1 applic BID TOP Last administered on 10/25/17 23: 23; Admin Dose 1 APPLIC; Start 10/22/17 at 09:00 Docusate Sodium (Colace) 100 mg BID PO Last administered on 10/25/17 23:01; Admin Dose 100 MG; Start 10/22/17 at 09:00 Enoxaparin Sodium (Lovenox) 40 mg Q24H [place] Last administered on 10/25/17 23:03 ; Admin Dose 40 MG; Start 10/21/17 at 23:00 Ferrous Sulfate (Ferrous Sulfate (Ec)) 325 mg TID PO Last administered on 23:01; Admin Dose 325 MG; Start 10/22/17 at 09:00 Folic Acid (Folic Acid) 1 mg DAILY PO Last administered on 10/25/17 08:55; Admin Dose 1 MG; Start 10/22/17 at 09:00 Gabapentin (Neurontin) 100 mg TID PO Last administered on 10/25/17 23:04; Admin Dose 100 MG; Start 10/22/17 at 09:00 Senna (Senokot) 1 tab QHS PO Last administered on 10/25/17 23:02; Admin Dose 1 TAB; Start 10/22/17 at 21:00 Simethicone (Mylicon) 80 mg QID PO Last administered on 10/25/17 23:02; Admin Dose 80 MG; Start 10/22/17 at 09:00 Ondansetron HCl (Zofran Inj) 4 mg Q6H PRN IV NAUSEA AND/OR VOMITING; Start at 23:00 Miscellaneous Information (Pending [facility] Order For Wound Care) This patient mendez... PRN PRN XX WOUND CARE; Start 10/22/17 at 02:00 Bisacodyl (Dulcolax) 10 mg DAILY PRN PO CONSTIPATION Last administered on 02:33; Admin Dose 10 MG; Start 10/24/17 at 10:30 Acetaminophen/ Hydrocodone Bitart ([place] (10/325)) 1 tab Q6H PRN PO MODERATE PAIN LEVEL 4-6 Last administered on 10/26/17 06:37; Admin Dose 1 TAB; Start at 14:30 Tobramycin TOBRAMYCIN PER PHARMACY NOTE XX ; Start 10/25/17 at 15:00 Ampicillin 50 ml @ 100 mls/hr Q8 IVPB Last administered on 10/26/17 06:36; Admin Dose 100 MLS/HR; Start 10/25/17 at 22:00 Tobramycin/Sodium Chloride (Tobramycin/NS) 108.25 ml @ 103.75 mls/hr Q24H IVPB Last administered on 10/25/17t 17:20; Admin Dose 103.75 MLS/HR; Start at 17:00 Assessment/Plan Chief Complaint/Hosp Course 62-year-old male 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 The patient had cervical fracture resulting in quadriplegia. He has been bedridden state and has an indwelling Rodrigues catheter. He was sent by nursing facility because of decreased urine output and the patient is complaining of suprapubic pain. Patient had no fever no nausea vomiting or diarrhea. He has a history of neurogenic bowel and bladder. He states he had one episode similar to this approx [address] scan of abdomen and pelvis done showed: 1. Distended urinary bladder despite a Rodrigues catheter may indicate a blocked catheter. The catheter has been since changed, the old catheter was kinked and that is the reason the bladder was distended, the new catheter does not think and it is draining well Problems: BENSON PIKE MD Oct 26, 2017 08:19
[2017-10-26] MEDS: BISACODYL 10 MG SUPP PR SCH ×2 (09:00→18:09)
--- NOTE | 2017-10-26 09:17 | PN ---
Date/Time of Note Date/Time of Note DATE: 10/26/17 TIME: 09:14 Assessment/Plan VTE Prophylaxis VTE Prophylaxis Intervention: LMWH Lines/Catheters IV [facility] Saline Lock Urinary Cath still in place: Yes Reason Cath still needed: other (indicate) Assessment/Plan Assessment/Plan 1. Complicated urinary tract infection. Final cultures reviewed, ID to adjust antibiotics, 2. Sepsis with underlying gram-positive bacteremia. No evidence of any septic shock. Infectious diseases following. 3. Bilateral hydronephrosis and hydroureter. Continue empiric antibiotics. Urology evaluation. S/P Nevarez replacement. 4. Normocytic, normochromic anemia. Monitor H&H closely. The patient already on iron supplements. 5. Neurogenic bladder. Most probably secondary to the patient's spinal cord injury. The patient currently has a Nevarez catheter in place that is draining well. 6. Quadriparesis. Continue supportive care. Turn every 2 hours. 7. DVT prophylaxis. Subcutaneous Lovenox. 8. Plan. : Continue ID antibiotic regimen recommendations, begin discharge planning. Janell marrero has chosen not to return to the nursing home facility from where he was sent due to the fact that he states that he received very poor care and as such case management is working on optional placement. Continue supportive care. Subjective 24 Hr Interval Summary Free Text/Dictation Patient c/o constipation. Per notes, had one large BM yesterday but would like suppository still. no new issues, feels otherwise well today Exam/Review of Systems Vital Signs Vitals Vital Signs Date Time Temp Pulse Resp B/P Pulse Ox O2 Delivery O2 Flow Rate FiO2 10/26/17 08:00 98.8 59 18 114/53 96 10/22/17 20:00 Room Air Intake and Output 10/25/17 10/25/17 10/26/17 15:00 23:00 07:00 Intake Total 1168.25 ml 340 ml Output Total 1400 ml 1100 ml 500 ml Balance -1400 ml 68.25 ml -160 ml Exam General: Adequately build 62 year-old male lying in bed in no apparent distress. HEENT: Normocephalic, atraumatic. Respiratory: Bilaterally diminished breath sounds. No labored breathing Cardiovascular: S1, S2 heard. Regular rate and rhythm. Abdomen: Soft, nontender, and nondistended. Bowel sounds positive in all 4 quadrants. Genitourinary: Nevarez catheter in place draining clear urine Extremities: No cyanosis, no clubbing. Bilateral trace pedal edema. Peripheral pulses palpable. Neurologic: The patient is awake, alert, and oriented. Still quite lethargic Quadriparesis. Results Result Diagram: 10/25/17 0459 10/25/17 0459 Results 24 hrs Laboratory Tests Test 10/26/17 05:22 Random Tobramycin Level 2.4 Medications Medications Current Medications Acetaminophen (Tylenol Tab) 650 mg Q6H PRN PO PAIN AND OR ELEVATED TEMP; Start 10/21/17 at 23:00 Ascorbic Acid (Vitamin C) 500 mg BID PO Last administered on 10/25/17 23:01; Admin Dose 500 MG; Start 10/22/17 at 09:00 Baclofen (Lioresal) 5 mg TID PO Last administered on 10/25/17 23:02; Admin Dose 5 MG; Start 10/22/17 at 09:00 Bisacodyl (Dulcolax Supp) 10 mg DAILY [place] Last administered on 10/25/17 08:55; Admin Dose 10 MG; Start 10/22/17 at 09:00 Cholecalciferol (Vitamin D) 2,000 unit DAILY PO Last administered on 10/25/17 08:55; Admin Dose 2,000 UNIT; Start 10/22/17 at 09:00 Clotrimazole (Lotrimin Cr) 1 applic BID TOP Last administered on 10/25/17 23: 23; Admin Dose 1 APPLIC; Start 10/22/17 at 09:00 Docusate Sodium (Colace) 100 mg BID PO Last administered on 10/25/17 23:01; Admin Dose 100 MG; Start 10/22/17 at 09:00 Enoxaparin Sodium (Lovenox) 40 mg Q24H [place] Last administered on 10/25/17 23:03 ; Admin Dose 40 MG; Start 10/21/17 at 23:00 Ferrous Sulfate (Ferrous Sulfate (Ec)) 325 mg TID PO Last administered on 23:01; Admin Dose 325 MG; Start 10/22/17 at 09:00 Folic Acid (Folic Acid) 1 mg DAILY PO Last administered on 10/25/17 08:55; Admin Dose 1 MG; Start 10/22/17 at 09:00 Gabapentin (Neurontin) 100 mg TID PO Last administered on 10/25/17 23:04; Admin Dose 100 MG; Start 10/22/17 at 09:00 Senna (Senokot) 1 tab QHS PO Last administered on 10/25/17 23:02; Admin Dose 1 TAB; Start 10/22/17 at 21:00 Simethicone (Mylicon) 80 mg QID PO Last administered on 10/25/17 23:02; Admin Dose 80 MG; Start 10/22/17 at 09:00 Ondansetron HCl (Zofran Inj) 4 mg Q6H PRN IV NAUSEA AND/OR VOMITING; Start at 23:00 Miscellaneous Information (Pending [facility] Order For Wound Care) This patient mendez... PRN PRN XX WOUND CARE; Start 10/22/17 at 02:00 Bisacodyl (Dulcolax) 10 mg DAILY PRN PO CONSTIPATION Last administered on 02:33; Admin Dose 10 MG; Start 10/24/17 at 10:30 Acetaminophen/ Hydrocodone Bitart ([place] (10/325)) 1 tab Q6H PRN PO MODERATE PAIN LEVEL 4-6 Last administered on 10/26/17 06:37; Admin Dose 1 TAB; Start at 14:30 Tobramycin TOBRAMYCIN PER PHARMACY NOTE XX ; Start 10/25/17 at 15:00 Ampicillin 50 ml @ 100 mls/hr Q8 IVPB Last administered on 10/26/17 06:36; Admin Dose 100 MLS/HR; Start 10/25/17 at 22:00 Tobramycin/Sodium Chloride (Tobramycin/NS) 108.25 ml @ 103.75 mls/hr Q24H IVPB Last administered on 10/25/17 17:20; Admin Dose 103.75 MLS/HR; Start at 17:00 ORAL ALLISON Oct 26, 2017 09:17
[2017-10-26] MEDS: FERROUS SULFATE (EC) 325 MG TAB PO SCH ×3 (11:05→20:44)
[2017-10-26] MEDS: FOLIC ACID 1 MG TAB PO SCH (11:05)
[2017-10-26] MEDS: DOCUSATE SODIUM 100 MG CAP PO SCH ×2 (11:05→20:44)
[2017-10-26] MEDS: POLYETHYLENE GLYCOL 17 GM PACKET PO SCH (11:06)
[2017-10-26] MEDS: ASCORBIC ACID 500 MG TAB PO SCH ×2 (11:06→20:44)
[2017-10-26] MEDS: CHOLECALCIFEROL 2,000 UNIT CAP PO SCH (11:06)
[2017-10-26] MEDS: GABAPENTIN 100 MG CAP PO SCH ×3 (11:06→20:44)
[2017-10-26] MEDS: BACLOFEN 10 MG TAB PO SCH ×3 (11:06→20:44)
[2017-10-26] MEDS: CLOTRIMAZOLE 1% 30 GM CR TOP SCH ×2 (11:07→20:44)
[2017-10-26 14:00] VITALS: BP 117/71; RESP 20
--- NOTE | 2017-10-26 14:02 | CONS ---
Date/Time of Note Date/Time of Note DATE: 10/26/17 TIME: 14:01 Assessment/Plan Assessment/Plan Chief Complaint/Hosp Course SUBJECTIVE: No acute events overnight. The patient is alert, looks comfortable. Denies pain, no fevers. MICROBIOLOGY: Blood culture grew coagulase-negative staph species on admission. Repeat blood cultures negative. Urine culture growing multidrug resistant Morganella morganii and Enterococcus species. Abx: Tobramycin, Ampicillin PHYSICAL EXAMINATION: GENERAL: Well-developed, elderly man in no distress. HEENT: Head atraumatic, normocephalic. Sclerae anicteric. Buccal mucosa dry. NECK: Supple. CHEST: Rise symmetrical. Breath sounds diminished to bases. HEART: S1, S2. ABDOMEN: Soft. Bowel tones present. ASSESSMENT: 1. Status post sepsis on admission. 2. Multidrug resistant urinary tract infection. 3. Coagulase-negative staph bacteremia consistent with contaminant. 4. Quadriparesis and neurogenic bladder. 5. Bilateral hydronephrosis and hydroureter, status post Nevarez catheter being changed. PLAN: The patient remains stable. Continue abx DW staff Problems: Consultation Date/Type/Reason Admit Date/Time Oct 21, 2017 at 22:02 Initial Consult Date 10/23/17 Type of Consultation: id Referring Provider: TARAH FONG DESIGN DRAFTSMAN Exam/Review of Systems Vital Signs Vitals Vital Signs Date Time Temp Pulse Resp B/P Pulse Ox O2 Delivery O2 Flow Rate FiO2 10/26/17 08:00 98.8 59 18 114/53 96 10/22/17 20:00 Room Air Intake and Output 10/25/17 10/25/17 10/26/17 15:00 23:00 07:00 Intake Total 1168.25 ml 340 ml Output Total 1400 ml 1100 ml 500 ml Balance -1400 ml 68.25 ml -160 ml Results Result Diagram: 10/25/17 0459 10/25/17 0459 Results 24 hrs Laboratory Tests Test 10/26/17 05:22 Random Tobramycin Level 2.4 Medications Medications Current Medications Acetaminophen (Tylenol Tab) 650 mg Q6H PRN PO PAIN AND OR ELEVATED TEMP; Start 10/21/17 at 23:00 Ascorbic Acid (Vitamin C) 500 mg BID PO Last administered on 10/26/17t 11:06; Admin Dose 500 MG; Start 10/22/17 at 09:00 Baclofen (Lioresal) 5 mg TID PO Last administered on 10/26/17 11:06; Admin Dose 5 MG; Start 10/22/17 at 09:00 Bisacodyl (Dulcolax Supp) 10 mg DAILY [place] Last administered on 10/25/17 08:55; Admin Dose 10 MG; Start 10/22/17 at 09:00 Cholecalciferol (Vitamin D) 2,000 unit DAILY PO Last administered on 10/26/17 11:06; Admin Dose 2,000 UNIT; Start 10/22/17 at 09:00 Clotrimazole (Lotrimin Cr) 1 applic BID TOP Last administered on 10/26/17 11: 07; Admin Dose 1 APPLIC; Start 10/22/17 at 09:00 Docusate Sodium (Colace) 100 mg BID PO Last administered on 10/26/17 11:05; Admin Dose 100 MG; Start 10/22/17 at 09:00 Enoxaparin Sodium (Lovenox) 40 mg Q24H [place] Last administered on 10/25/17 23:03 ; Admin Dose 40 MG; Start 10/21/17 at 23:00 Ferrous Sulfate (Ferrous Sulfate (Ec)) 325 mg TID PO Last administered on 11:05; Admin Dose 325 MG; Start 10/22/17 at 09:00 Folic Acid (Folic Acid) 1 mg DAILY PO Last administered on 10/26/17 11:05; Admin Dose 1 MG; Start 10/22/17 at 09:00 Gabapentin (Neurontin) 100 mg TID PO Last administered on 10/26/17 11:06; Admin Dose 100 MG; Start 10/22/17 at 09:00 Senna (Senokot) 1 tab QHS PO Last administered on 10/25/17 23:02; Admin Dose 1 TAB; Start 10/22/17 at 21:00 Simethicone (Mylicon) 80 mg QID PO Last administered on 10/26/17 11:06; Admin Dose 80 MG; Start 10/22/17 at 09:00 Ondansetron HCl (Zofran Inj) 4 mg Q6H PRN IV NAUSEA AND/OR VOMITING; Start at 23:00 Miscellaneous Information (Pending Santyl Order For Wound Care) This patient mendez... PRN PRN XX WOUND CARE; Start 10/22/17 at 02:00 Bisacodyl (Dulcolax) 10 mg DAILY PRN PO CONSTIPATION Last administered on 02:33; Admin Dose 10 MG; Start 10/24/17 at 10:30 Acetaminophen/ Hydrocodone Bitart ([place] (10/325)) 1 tab Q6H PRN PO MODERATE PAIN LEVEL 4-6 Last administered on 10/26/17 06:37; Admin Dose 1 TAB; Start at 14:30 Tobramycin TOBRAMYCIN PER PHARMACY NOTE XX ; Start 10/25/17 at 15:00 Ampicillin 50 ml @ 100 mls/hr Q8 IVPB Last administered on 10/26/17 06:36; Admin Dose 100 MLS/HR; Start 10/25/17 at 22:00 Tobramycin/Sodium Chloride (Tobramycin/NS) 108.25 ml @ 103.75 mls/hr Q24H IVPB Last administered on 10/25/17 17:20; Admin Dose 103.75 MLS/HR; Start at 17:00 Polyethylene Glycol (Miralax) 8.5 gm DAILY PO Last administered on 10/26/17 11 :06; Admin Dose 8.5 GM; Start 10/26/17 at 09:30 Miscellaneous Information (*Rx Drug Level Order Reminder*) 1 ONCE ONCE XX ; Start 10/27/17 at 16:00; Stop 10/27/17 at 16:01 SANTA BHAT NP Oct 26, 2017 14:02
--- NOTE | 2017-10-26 17:13 | CONS ---
Date/Time of Note Date/Time of Note DATE: 10/26/17 TIME: 17:12 Assessment/Plan Assessment/Plan Additional Assessment/Plan 1. Bilateral Hydronpehrosis with hydroureter 2. complicated UTI wth Urine cx grew morganella and Enterococcus 3. Neurogenci bladder 4. Quadriplegia 5. Gram negative staph bacteremia Plan: IV abx ampicillin and Tobramcyin, renally dosed, currently Cr and electrolytes normal, will follow up Uric acid normal, Mag 1.8normal will follow up Consultation Date/Type/Reason Admit Date/Time Oct 21, 2017 at 22:02 Initial Consult Date 10/23/17 Type of Consultation: NEPHROLOG Y Referring Provider: TARAH FONG NP 24 HR Interval Summary Free Text/Dictation CR 0.46 and Electrolytes tnromal, c/o not able to go for BM, BP stable Exam/Review of Systems Vital Signs Vitals Vital Signs Date Time Temp Pulse Resp B/P Pulse Ox O2 Delivery O2 Flow Rate FiO2 10/26/17 08:00 98.8 59 18 114/53 96 10/22/17 20:00 Room Air Intake and Output 10/25/17 10/25/17 10/26/17 15:00 23:00 07:00 Intake Total 1168.25 ml 340 ml Output Total 1400 ml 1100 ml 500 ml Balance -1400 ml 68.25 ml -160 ml Exam General: awake,alert, no acute distress HEENT: Normocephalic, atraumatic. Respiratory: Bilaterally diminished breath sounds. Cardiovascular: S1, S2 heard. Regular rate and rhythm. Abdomen: Soft, nontender, and nondistended. BS + Genitourinary: Nevarez catheter in place. Extremities: No cyanosis, no clubbing. Bilateral trace pedal edema. Peripheral pulses palpable. Neurologic: Quadriparesis Results Result Diagram: 10/25/17 0459 10/25/17 0459 Results 24 hrs Laboratory Tests Test 10/26/17 05:22 Random Tobramycin Level 2.4 Medications Medications Current Medications Acetaminophen (Tylenol Tab) 650 mg Q6H PRN PO PAIN AND OR ELEVATED TEMP; Start 10/21/17 at 23:00 Ascorbic Acid (Vitamin C) 500 mg BID PO Last administered on 10/26/17t 11:06; Admin Dose 500 MG; Start 10/22/17 at 09:00 Baclofen (Lioresal) 5 mg TID PO Last administered on 10/26/17 14:19; Admin Dose 5 MG; Start 10/22/17 at 09:00 Bisacodyl (Dulcolax Supp) 10 mg DAILY [place] Last administered on 10/25/17 08:55; Admin Dose 10 MG; Start 10/22/17 at 09:00 Cholecalciferol (Vitamin D) 2,000 unit DAILY PO Last administered on 10/26/17 11:06; Admin Dose 2,000 UNIT; Start 10/22/17 at 09:00 Clotrimazole (Lotrimin Cr) 1 applic BID TOP Last administered on 10/26/17 11: 07; Admin Dose 1 APPLIC; Start 10/22/17 at 09:00 Docusate Sodium (Colace) 100 mg BID PO Last administered on 10/26/17 11:05; Admin Dose 100 MG; Start 10/22/17 at 09:00 Enoxaparin Sodium (Lovenox) 40 mg Q24H [place] Last administered on 10/25/17 23:03 ; Admin Dose 40 MG; Start 10/21/17 at 23:00 Ferrous Sulfate (Ferrous Sulfate (Ec)) 325 mg TID PO Last administered on 14:19; Admin Dose 325 MG; Start 10/22/17 at 09:00 Folic Acid (Folic Acid) 1 mg DAILY PO Last administered on 10/26/17 11:05; Admin Dose 1 MG; Start 10/22/17 at 09:00 Gabapentin (Neurontin) 100 mg TID PO Last administered on 10/26/17 14:20; Admin Dose 100 MG; Start 10/22/17 at 09:00 Senna (Senokot) 1 tab QHS PO Last administered on 10/25/17 23:02; Admin Dose 1 TAB; Start 10/22/17 at 21:00 Simethicone (Mylicon) 80 mg QID PO Last administered on 10/26/17 14:20; Admin Dose 80 MG; Start 10/22/17 at 09:00 Ondansetron HCl (Zofran Inj) 4 mg Q6H PRN IV NAUSEA AND/OR VOMITING; Start at 23:00 Misc[facility] This patient mendez... PRN PRN XX WOUND CARE; Start 10/22/17 at 02:00 Bisacodyl (Dulcolax) 10 mg DAILY PRN PO CONSTIPATION Last administered on 02:33; Admin Dose 10 MG; Start 10/24/17 at 10:30 Acetaminophen/ Hydrocodone Bitart ([place] (10/325)) 1 tab Q6H PRN PO MODERATE PAIN LEVEL 4-6 Last administered on 10/26/17 14:18; Admin Dose 1 TAB; Start at 14:30 Tobramycin TOBRAMYCIN PER PHARMACY NOTE XX ; Start 10/25/17 at 15:00 Ampicillin 50 ml @ 100 mls/hr Q8 IVPB Last administered on 10/26/17 14:20; Admin Dose 100 MLS/HR; Start 10/25/17 at 22:00 Tobramycin/Sodium Chloride (Tobramycin/NS) 108.25 ml @ 103.75 mls/hr Q24H IVPB Last administered on 10/25/17 17:20; Admin Dose 103.75 MLS/HR; Start at 17:00 Polyethylene Glycol (Miralax) 8.5 gm DAILY PO Last administered on 10/26/17 11 :06; Admin Dose 8.5 GM; Start 10/26/17 at 09:30 Miscellaneous Information (*Rx Drug Level Order Reminder*) 1 ONCE ONCE XX ; Start 10/27/17 at 16:00; Stop 10/27/17 at 16:01 JOSE MANUEL WILL MD Oct 26, 2017 17:13
[2017-10-26] MEDS: SOD CHLORIDE 0.9% IVPB SCH (18:03)
[2017-10-26] MEDS: TOBRAMYCIN IVPB SCH (18:03)
[2017-10-26 19:49] VITALS: BP 90/50; RESP 16
[2017-10-26 20:42] VITALS: BP 128/62; PULSE 55
[2017-10-26] MEDS: SENNA TAB PO SCH (20:44)
[2017-10-26] MEDS: ENOXAPARIN 40 MG/0.4 ML SYG SC SCH (22:37)
[2017-10-27 02:16] VITALS: BP 99/54; RESP 18
[2017-10-27] MEDS: HYDROCODONE/APAP (10/325) TAB PO PRN ×3 (05:05→19:43)
[2017-10-27] MEDS: AMPICILLIN 1 GM/NS (PMX) 50 ML IVPB SCH ×3 (05:05→22:14)
[2017-10-27 05:45] LABS: BASOPHILS % 0.3 % (0.0-2.0); EOSINOPHILS # 0.3 10^3/ul (0.0-0.5); HEMATOCRIT 33.1 % (42.0-52.0); HEMOGLOBIN 11.3 g/dl (14.0-18.0); LYMPHOCYTES # 2.7 10^3/ul (0.8-2.9); LYMPHOCYTES % 42.3 % (15.0-51.0); MEAN CORPUSCULAR HGB CONC 34.1 g/dl (32.0-37.0); MEAN CORPUSCULAR VOLUME 90.7 fl (82.0-101.0); MEAN PLATELET VOLUME 9.4 fl (7.4-10.4); MONOCYTE # 0.5 10^3/ul (0.3-0.9); MONOCYTES % 7.2 % (0.0-11.0); NEUTROPHIL # 2.9 10^3/ul (1.6-7.5); NEUTROPHILS % 45.9 % (39.0-77.0); PLATELET COUNT 321 10^3/UL (140-415); RED BLOOD COUNT 3.65 10^6/ul (4.70-6.10); RED CELL DISTRIBUTION WIDTH 13.3 % (11.5-14.5); WHITE BLOOD COUNT 6.3 10^3/ul (4.8-10.8)
[2017-10-27 06:12] LABS: ALBUMIN 3.6 g/dl (3.3-4.9); ALBUMIN/GLOBULIN RATIO 1.24; BILIRUBIN,INDIRECT 0.2 mg/dl (0-1.1); BILIRUBIN,TOTAL 0.2 mg/dl (0.2-1.3); CALCIUM 9.7 mg/dl (8.4-10.2); CREATININE 0.52 mg/dl (0.61-1.24); POTASSIUM 4.2 mmol/L (3.5-5.1); TOTAL PROTEIN 6.5 g/dl (6.1-8.1)
[2017-10-27 06:13] LABS: MAGNESIUM 1.6 mg/dl (1.7-2.5); PHOSPHORUS 4.3 mg/dl (2.5-4.9)
[2017-10-27 08:00] VITALS: BP 132/64; RESP 20
--- NOTE | 2017-10-27 08:04 | CONS ---
Date/Time of Note Date/Time of Note DATE: 10/27/17 TIME: 08:02 Consult Date/Type/Reason Admit Date/Time Oct 21, 2017 at 22:02 Initial Consult Date 10/23/17 Type of Consultation: Urology Reason for Consultation Urinary retention Ordering Provider: TARAH FONG FINISHED CLOTH CHECKER Subjective No new events, patient is comfortable Objective Vital Signs Date Time Temp Pulse Resp B/P Pulse Ox O2 Delivery O2 Flow Rate FiO2 10/27/17 02:16 97.9 62 18 99/54 97 Intake and Output 10/26/17 10/26/17 10/27/17 15:00 23:00 07:00 Intake Total 100 ml 1718.25 ml 580 ml Output Total 1200 ml 1400 ml Balance 100 ml 518.25 ml -820 ml Exam Rodrigues catheter draining well and the urine is clear Results/Medications Result Diagram: 10/27/17 0515 10/27/17 0515 Results 24 hrs Laboratory Tests Test 10/27/17 05:15 White Blood Count 6.3 # Red Blood Count 3.65 L Hemoglobin 11.3 L Hematocrit 33.1 L Mean Corpuscular Volume 90.7 Mean Corpuscular Hemoglobin 31.0 Mean Corpuscular Hemoglobin Concent 34.1 Red Cell Distribution Width 13.3 Platelet Count 321 Mean Platelet Volume 9.4 Neutrophils % 45.9 Lymphocytes % 42.3 Monocytes % 7.2 Eosinophils % 4.0 Basophils % 0.3 Nucleated Red Blood Cells % 0.0 Neutrophils # 2.9 Lymphocytes # 2.7 Monocytes # 0.5 Eosinophils # 0.3 Basophils # 0.0 Nucleated Red Blood Cells # 0.0 Sodium Level 142 Potassium Level 4.2 Chloride Level 104 Carbon Dioxide Level 28 Anion Gap 14 Blood Urea Nitrogen 9 Creatinine 0.52 L Glucose Level 100 Calcium Level 9.7 Phosphorus Level 4.3 Magnesium Level 1.6 L Total Bilirubin 0.2 Direct Bilirubin 0.00 Indirect Bilirubin 0.2 Aspartate Amino Transf (AST/SGOT) 20 Alanine Aminotransferase (ALT/SGPT) 37 Alkaline Phosphatase 96 Total Protein 6.5 Albumin 3.6 Globulin 2.90 Albumin/Globulin Ratio 1.24 Medications Current Medications Acetaminophen (Tylenol Tab) 650 mg Q6H PRN PO PAIN AND OR ELEVATED TEMP; Start 10/21/17 at 23:00 Ascorbic Acid (Vitamin C) 500 mg BID PO Last administered on 10/26/17 20:44; Admin Dose 500 MG; Start 10/22/17 at 09:00 Baclofen (Lioresal) 5 mg TID PO Last administered on 10/26/17 20:44; Admin Dose 5 MG; Start 10/22/17 at 09:00 Bisacodyl (Dulcolax Supp) 10 mg DAILY [place] Last administered on 10/26/17 18:09; Admin Dose 10 MG; Start 10/22/17 at 09:00 Cholecalciferol (Vitamin D) 2,000 unit DAILY PO Last administered on 10/26/17 11:06; Admin Dose 2,000 UNIT; Start 10/22/17 at 09:00 Clotrimazole (Lotrimin Cr) 1 applic BID TOP Last administered on 10/26/17 20: 44; Admin Dose 1 APPLIC; Start 10/22/17 at 09:00 Docusate Sodium (Colace) 100 mg BID PO Last administered on 10/26/17 20:44; Admin Dose 100 MG; Start 10/22/17 at 09:00 Enoxaparin Sodium (Lovenox) 40 mg Q24H SC Last administered on 10/26/17 22:37 ; Admin Dose 40 MG; Start 10/21/17 at 23:00 Ferrous Sulfate (Ferrous Sulfate (Ec)) 325 mg TID PO Last administered on 20:44; Admin Dose 325 MG; Start 10/22/17 at 09:00 Folic Acid (Folic Acid) 1 mg DAILY PO Last administered on 10/26/17 11:05; Admin Dose 1 MG; Start 10/22/17 at 09:00 Gabapentin (Neurontin) 100 mg TID PO Last administered on 10/26/17 20:44; Admin Dose 100 MG; Start 10/22/17 at 09:00 Senna (Senokot) 1 tab QHS PO Last administered on 10/26/17 20:44; Admin Dose 1 TAB; Start 10/22/17 at 21:00 Simethicone (Mylicon) 80 mg QID PO Last administered on 10/26/17 20:43; Admin Dose 80 MG; Start 10/22/17 at 09:00 Ondansetron HCl (Zofran Inj) 4 mg Q6H PRN IV NAUSEA AND/OR VOMITING; Start at 23:00 Miscellaneous Information (Pending Santyl Order For Wound Care) This patient mendez... PRN PRN XX WOUND CARE; Start 10/22/17 at 02:00 Bisacodyl (Dulcolax) 10 mg DAILY PRN PO CONSTIPATION Last administered on 02:33; Admin Dose 10 MG; Start 10/24/17 at 10:30 Acetaminophen/ Hydrocodone Bitart ([place] (10/325)) 1 tab Q6H PRN PO MODERATE PAIN LEVEL 4-6 Last administered on 10/27/17 05:05; Admin Dose 1 TAB; Start at 14:30 Tobramycin TOBRAMYCIN PER PHARMACY NOTE XX ; Start 10/25/17 at 15:00 Ampicillin 50 ml @ 100 mls/hr Q8 IVPB Last administered on 10/27/17 05:05; Admin Dose 100 MLS/HR; Start 10/25/17 at 22:00 Tobramycin/Sodium Chloride (Tobramycin/NS) 108.25 ml @ 103.75 mls/hr Q24H IVPB Last administered on 10/26/17 18:03; Admin Dose 103.75 MLS/HR; Start at 17:00 Polyethylene Glycol (Miralax) 8.5 gm DAILY PO Last administered on 10/26/17 11 :06; Admin Dose 8.5 GM; Start 10/26/17 at 09:30 Miscellaneous Information (*Rx Drug Level Order Reminder*) 1 ONCE ONCE XX ; Start 10/27/17 at 16:00; Stop 10/27/17 at 16:01 Assessment/Plan Chief Complaint/Hosp Course 62-year-old male 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 The patient had cervical fracture resulting in quadriplegia. He has been bedridden state and has an indwelling Rodrigues catheter. He was sent by nursing facility because of decreased urine output and the patient is complaining of suprapubic pain. Patient had no fever no nausea vomiting or diarrhea. He has a history of neurogenic bowel and bladder. He states he had one episode similar to this approx [address] scan of abdomen and pelvis done showed: 1. Distended urinary bladder despite a Rodrigues catheter may indicate a blocked catheter. The catheter has been since changed, the old catheter was kinked and that is the reason the bladder was distended, the new catheter does not think and it is draining well Problems: BENSON PIKE MD Oct 27, 2017 08:04
[2017-10-27] MEDS: BISACODYL 10 MG SUPP PR SCH (09:00)
[2017-10-27] MEDS: POLYETHYLENE GLYCOL 17 GM PACKET PO SCH (09:00)
[2017-10-27] MEDS: DOCUSATE SODIUM 100 MG CAP PO SCH ×2 (09:00→20:29)
[2017-10-27] MEDS: BACLOFEN 10 MG TAB PO SCH ×3 (09:01→20:29)
[2017-10-27] MEDS: GABAPENTIN 100 MG CAP PO SCH ×3 (09:01→20:29)
[2017-10-27] MEDS: ASCORBIC ACID 500 MG TAB PO SCH ×2 (09:01→20:29)
[2017-10-27] MEDS: CHOLECALCIFEROL 2,000 UNIT CAP PO SCH (09:01)
[2017-10-27] MEDS: FERROUS SULFATE (EC) 325 MG TAB PO SCH ×3 (09:02→20:29)
[2017-10-27] MEDS: FOLIC ACID 1 MG TAB PO SCH (09:02)
[2017-10-27] MEDS: CLOTRIMAZOLE 1% 30 GM CR TOP SCH ×2 (09:07→20:30)
[2017-10-27 14:00] VITALS: BP 109/54; RESP 20
--- NOTE | 2017-10-27 15:47 | PN ---
Date/Time of Note Date/Time of Note DATE: 10/27/17 TIME: 15:29 Assessment/Plan VTE Prophylaxis VTE Prophylaxis Intervention: LMWH Lines/Catheters IV Catheter Type (from [facility]): [place] [facility] Urinary Cath still in place: Yes Reason Cath still needed: other (indicate) Assessment/Plan Assessment/Plan 1. Complicated urinary tract infection. Final cultures reviewed, ID has given final abx recommendations 2. s/p Sepsis with underlying gram-positive bacteremia. No evidence of any septic shock. Infectious diseases following. 3. Bilateral hydronephrosis and hydroureter. Continue empiric antibiotics. Urology evaluation. S/P Nevarez replacement. 4. Normocytic, normochromic anemia. Monitor H&H closely. The patient already on iron supplements. 5. Neurogenic bladder. Most probably secondary to the patient's spinal cord injury. The patient currently has a Nevarez catheter in place that is draining well. 6. Quadriparesis. Continue supportive care. Turn every 2 hours. 7. DVT prophylaxis. Subcutaneous Lovenox. 8. Plan. : Continue ID antibiotic regimen recommendations, Continue discharge planning. Patient has chosen not to return to the senior care facility from where he was sent due to the fact that he states that he received very poor care and as such case management is working on optional placement. Continue supportive care. Spoke with CM in detail. Subjective 24 Hr Interval Summary Free Text/Dictation No new issues Exam/Review of Systems Vital Signs Vitals Vital Signs Date Time Temp Pulse Resp B/P Pulse Ox O2 Delivery O2 Flow Rate FiO2 10/27/17 08:00 98.6 82 20 132/64 94 Intake and Output 10/26/17 10/26/17 10/27/17 15:00 23:00 07:00 Intake Total 100 ml 1718.25 ml 580 ml Output Total 1200 ml 1400 ml Balance 100 ml 518.25 ml -820 ml Exam General: Adequately build 62 year-old male lying in bed in no apparent distress. HEENT: Normocephalic, atraumatic. Respiratory: Bilaterally diminished breath sounds. No labored breathing Cardiovascular: S1, S2 heard. Regular rate and rhythm. Abdomen: Soft, nontender, and nondistended. Bowel sounds positive in all 4 quadrants. Genitourinary: Nevarez catheter in place draining clear urine Extremities: No cyanosis, no clubbing. Bilateral trace pedal edema. Peripheral pulses palpable. Neurologic: The patient is awake, alert, and oriented. Still quite lethargic Quadriparesis. Results Result Diagram: 10/27/17 0515 10/27/17 0515 Results 24 hrs Laboratory Tests Test 10/27/17 05:15 White Blood Count 6.3 # Red Blood Count 3.65 L Hemoglobin 11.3 L Hematocrit 33.1 L Mean Corpuscular Volume 90.7 Mean Corpuscular Hemoglobin 31.0 Mean Corpuscular Hemoglobin Concent 34.1 Red Cell Distribution Width 13.3 Platelet Count 321 Mean Platelet Volume 9.4 Neutrophils % 45.9 Lymphocytes % 42.3 Monocytes % 7.2 Eosinophils % 4.0 Basophils % 0.3 Nucleated Red Blood Cells % 0.0 Neutrophils # 2.9 Lymphocytes # 2.7 Monocytes # 0.5 Eosinophils # 0.3 Basophils # 0.0 Nucleated Red Blood Cells # 0.0 Sodium Level 142 Potassium Level 4.2 Chloride Level 104 Carbon Dioxide Level 28 Anion Gap 14 Blood Urea Nitrogen 9 Creatinine 0.52 L Glucose Level 100 Calcium Level 9.7 Phosphorus Level 4.3 Magnesium Level 1.6 L Total Bilirubin 0.2 Direct Bilirubin 0.00 Indirect Bilirubin 0.2 Aspartate Amino Transf (AST/SGOT) 20 Alanine Aminotransferase (ALT/SGPT) 37 Alkaline Phosphatase 96 Total Protein 6.5 Albumin 3.6 Globulin 2.90 Albumin/Globulin Ratio 1.24 Medications Medications Current Medications Acetaminophen (Tylenol Tab) 650 mg Q6H PRN PO PAIN AND OR ELEVATED TEMP; Start 10/21/17 at 23:00 Ascorbic Acid (Vitamin C) 500 mg BID PO Last administered on 10/27/17 09:01; Admin Dose 500 MG; Start 10/22/17 at 09:00 Baclofen (Lioresal) 5 mg TID PO Last administered on 10/27/17 12:24; Admin Dose 5 MG; Start 10/22/17 at 09:00 Bisacodyl (Dulcolax Supp) 10 mg DAILY [place] Last administered on 10/26/17 18:09; Admin Dose 10 MG; Start 10/22/17 at 09:00 Cholecalciferol (Vitamin D) 2,000 unit DAILY PO Last administered on 10/27/17 09:01; Admin Dose 2,000 UNIT; Start 10/22/17 at 09:00 Clotrimazole (Lotrimin Cr) 1 applic BID TOP Last administered on 10/27/17 09: 07; Admin Dose 1 APPLIC; Start 10/22/17 at 09:00 Docusate Sodium (Colace) 100 mg BID PO Last administered on 10/26/17 20:44; Admin Dose 100 MG; Start 10/22/17 at 09:00 Enoxaparin Sodium (Lovenox) 40 mg Q24H SC Last administered on 10/26/17 22:37 ; Admin Dose 40 MG; Start 10/21/17 at 23:00 Ferrous Sulfate (Ferrous Sulfate (Ec)) 325 mg TID PO Last administered on 12:24; Admin Dose 325 MG; Start 10/22/17 at 09:00 Folic Acid (Folic Acid) 1 mg DAILY PO Last administered on 10/27/17 09:02; Admin Dose 1 MG; Start 10/22/17 at 09:00 Gabapentin (Neurontin) 100 mg TID PO Last administered on 10/27/17 12:24; Admin Dose 100 MG; Start 10/22/17 at 09:00 Senna (Senokot) 1 tab QHS PO Last administered on 10/26/17 20:44; Admin Dose 1 TAB; Start 10/22/17 at 21:00 Simethicone (Mylicon) 80 mg QID PO Last administered on 10/27/17 12:24; Admin Dose 80 MG; Start 10/22/17 at 09:00 Ondansetron HCl (Zofran Inj) 4 mg Q6H PRN IV NAUSEA AND/OR VOMITING; Start at 23:00 Miscellaneous Information (Pending Santyl Order For Wound Care) This patient mendez... PRN PRN XX WOUND CARE; Start 10/22/17 at 02:00 Bisacodyl (Dulcolax) 10 mg DAILY PRN PO CONSTIPATION Last administered on 02:33; Admin Dose 10 MG; Start 10/24/17 at 10:30 Acetaminophen/ Hydrocodone Bitart ([place] (10/325)) 1 tab Q6H PRN PO MODERATE PAIN LEVEL 4-6 Last administered on 10/27/17 12:26; Admin Dose 1 TAB; Start at 14:30 Tobramycin TOBRAMYCIN PER PHARMACY NOTE XX ; Start 10/25/17 at 15:00 Ampicillin 50 ml @ 100 mls/hr Q8 IVPB Last administered on 10/27/17 14:09; Admin Dose 100 MLS/HR; Start 10/25/17 at 22:00 Tobramycin/Sodium Chloride (Tobramycin/NS) 108.25 ml @ 103.75 mls/hr Q24H IVPB Last administered on 10/26/17 18:03; Admin Dose 103.75 MLS/HR; Start at 17:00 Polyethylene Glycol (Miralax) 8.5 gm DAILY PO Last administered on 10/26/17 11 :06; Admin Dose 8.5 GM; Start 10/26/17 at 09:30 Miscellaneous Information (*Rx Drug Level Order Reminder*) 1 ONCE ONCE XX ; Start 10/27/17 at 16:00; Stop 10/27/17 at 16:01 ORAL ALLISON Oct 27, 2017 15:43
[2017-10-27] MEDS ORDERED: TOB TROUGH AT XX ONE (16:00)
[2017-10-27] MEDS ORDERED: MAGNESIUM SULFATE 2 GM/50 ML 50 ML IVPB ONE (16:30)
--- NOTE | 2017-10-27 17:17 | CONS ---
Date/Time of Note Date/Time of Note DATE: 10/27/17 TIME: 17:16 Assessment/Plan Assessment/Plan Additional Assessment/Plan 1. Bilateral Hydronpehrosis with hydroureter 2. complicated UTI wth Urine cx grew morganella and Enterococcus 3. Neurogenci bladder 4. Quadriplegia 5. Gram negative staph bacteremia Plan: IV abx ampicillin and Tobramcyin, renally dosed, currently Cr and electrolytes normal, will follow up Uric acid normal, Mag 1.6- Magnesium sulfate 2 gram IV x 1 given will follow up Consultation Date/Type/Reason Admit Date/Time Oct 21, 2017 at 22:02 Initial Consult Date 10/23/17 Type of Consultation: NEPHROLOGY Referring Provider: TARAH FONG FIRE CREW SPECIALIST Exam/Review of Systems Vital Signs Vitals Vital Signs Date Time Temp Pulse Resp B/P Pulse Ox O2 Delivery O2 Flow Rate FiO2 10/27/17 14:00 98.6 64 20 109/54 96 Intake and Output 10/26/17 10/26/17 10/27/17 14:59 22:59 06:59 Intake Total 100 ml 1718.25 ml 580 ml Output Total 1200 ml 1400 ml Balance 100 ml 518.25 ml -820 ml Exam General: awake,alert, no acute distress HEENT: Normocephalic, atraumatic. Respiratory: Bilaterally diminished breath sounds. Cardiovascular: S1, S2 heard. Regular rate and rhythm. Abdomen: Soft, nontender, and nondistended. BS + Genitourinary: Nevarez catheter in place. Extremities: No cyanosis, no clubbing. Bilateral trace pedal edema. Peripheral pulses palpable. Neurologic: Quadriparesis Results Result Diagram: 10/27/17 0515 10/27/17 0515 Results 24 hrs Laboratory Tests Test 10/27/17 05:15 10/27/17 16:07 White Blood Count 6.3 # Red Blood Count 3.65 L Hemoglobin 11.3 L Hematocrit 33.1 L Mean Corpuscular Volume 90.7 Mean Corpuscular Hemoglobin 31.0 Mean Corpuscular Hemoglobin Concent 34.1 Red Cell Distribution Width 13.3 Platelet Count 321 Mean Platelet Volume 9.4 Neutrophils % 45.9 Lymphocytes % 42.3 Monocytes % 7.2 Eosinophils % 4.0 Basophils % 0.3 Nucleated Red Blood Cells % 0.0 Neutrophils # 2.9 Lymphocytes # 2.7 Monocytes # 0.5 Eosinophils # 0.3 Basophils # 0.0 Nucleated Red Blood Cells # 0.0 Sodium Level 142 Potassium Level 4.2 Chloride Level 104 Carbon Dioxide Level 28 Anion Gap 14 Blood Urea Nitrogen 9 Creatinine 0.52 L Glucose Level 100 Calcium Level 9.7 Phosphorus Level 4.3 Magnesium Level 1.6 L Total Bilirubin 0.2 Direct Bilirubin 0.00 Indirect Bilirubin 0.2 Aspartate Amino Transf (AST/SGOT) 20 Alanine Aminotransferase (ALT/SGPT) 37 Alkaline Phosphatase 96 Total Protein 6.5 Albumin 3.6 Globulin 2.90 Albumin/Globulin Ratio 1.24 Tobramycin Level Trough < 0.6 L Medications Medications Current Medications Acetaminophen (Tylenol Tab) 650 mg Q6H PRN PO PAIN AND OR ELEVATED TEMP; Start 10/21/17 at 23:00 Ascorbic Acid (Vitamin C) 500 mg BID PO Last administered on 10/27/17 09:01; Admin Dose 500 MG; Start 10/22/17 at 09:00 Baclofen (Lioresal) 5 mg TID PO Last administered on 10/27/17 12:24; Admin Dose 5 MG; Start 10/22/17 at 09:00 Bisacodyl (Dulcolax Supp) 10 mg DAILY [place] Last administered on 10/26/17 18:09; Admin Dose 10 MG; Start 10/22/17 at 09:00 Cholecalciferol (Vitamin D) 2,000 unit DAILY PO Last administered on 10/27/17 09:01; Admin Dose 2,000 UNIT; Start 10/22/17 at 09:00 Clotrimazole (Lotrimin Cr) 1 applic BID TOP Last administered on 10/27/17 09: 07; Admin Dose 1 APPLIC; Start 10/22/17 at 09:00 Docusate Sodium (Colace) 100 mg BID PO Last administered on 10/26/17 20:44; Admin Dose 100 MG; Start 10/22/17 at 09:00 Enoxaparin Sodium (Lovenox) 40 mg Q24H SC Last administered on 10/26/17 22:37 ; Admin Dose 40 MG; Start 10/21/17 at 23:00 Ferrous Sulfate (Ferrous Sulfate (Ec)) 325 mg TID PO Last administered on 12:24; Admin Dose 325 MG; Start 10/22/17 at 09:00 Folic Acid (Folic Acid) 1 mg DAILY PO Last administered on 10/27/17 09:02; Admin Dose 1 MG; Start 10/22/17 at 09:00 Gabapentin (Neurontin) 100 mg TID PO Last administered on 10/27/17 12:24; Admin Dose 100 MG; Start 10/22/17 at 09:00 Senna (Senokot) 1 tab QHS PO Last administered on 10/26/17 20:44; Admin Dose 1 TAB; Start 10/22/17 at 21:00 Simethicone (Mylicon) 80 mg QID PO Last administered on 10/27/17 12:24; Admin Dose 80 MG; Start 10/22/17 at 09:00 Ondansetron HCl (Zofran Inj) 4 mg Q6H PRN IV NAUSEA AND/OR VOMITING; Start at 23:00 Miscellaneous Information (Pending [facility] Order For Wound Care) This patient mendez... PRN PRN XX WOUND CARE; Start 10/22/17 at 02:00 Bisacodyl (Dulcolax) 10 mg DAILY PRN PO CONSTIPATION Last administered on 02:33; Admin Dose 10 MG; Start 10/24/17 at 10:30 Acetaminophen/ Hydrocodone Bitart ([place] (10/325)) 1 tab Q6H PRN PO MODERATE PAIN LEVEL 4-6 Last administered on 10/27/17 12:26; Admin Dose 1 TAB; Start at 14:30 Tobramycin TOBRAMYCIN PER PHARMACY NOTE XX ; Start 10/25/17 at 15:00 Ampicillin 50 ml @ 100 mls/hr Q8 IVPB Last administered on 10/27/17 14:09; Admin Dose 100 MLS/HR; Start 10/25/17 at 22:00 Tobramycin/Sodium Chloride (Tobramycin/NS) 108.25 ml @ 103.75 mls/hr Q24H IVPB Last administered on 10/26/17 18:03; Admin Dose 103.75 MLS/HR; Start at 17:00 Polyethylene Glycol 8.5 gm 8.5 gm DAILY PO Last administered on 10/26/17 11:06 ; Admin Dose 8.5 GM; Start 10/26/17 at 09:30 Magnesium Sulfate (Magnesium Sulfate 2 Gm/50 ml) 50 ml @ 25 mls/hr ONCE ONCE IVPB ; Start 10/27/17 at 16:30; Stop 10/27/17 at 18:29 JOSE MANUEL WILL MD Oct 27, 2017 17:17
[2017-10-27] MEDS: SOD CHLORIDE 0.9% IVPB SCH (17:22)
[2017-10-27] MEDS: TOBRAMYCIN IVPB SCH (17:22)
--- NOTE | 2017-10-27 18:52 | CONS ---
Date/Time of Note Date/Time of Note DATE: 10/27/17 TIME: 18:52 Assessment/Plan Assessment/Plan Chief Complaint/Hosp Course SUBJECTIVE: No acute events overnight. Looks comfortable, afebrile MICROBIOLOGY: Blood culture grew coagulase-negative staph species on admission. Repeat blood cultures negative. Urine culture growing multidrug resistant Morganella morganii and Enterococcus species. Abx: Tobramycin, Ampicillin PHYSICAL EXAMINATION: GENERAL: Well-developed, elderly man in no distress. HEENT: Head atraumatic, normocephalic. Sclerae anicteric. Buccal mucosa dry. NECK: Supple. CHEST: Rise symmetrical. Breath sounds diminished to bases. HEART: S1, S2. ABDOMEN: Soft. Bowel tones present. ASSESSMENT: 1. Status post sepsis on admission. 2. Multidrug resistant urinary tract infection. 3. Coagulase-negative staph bacteremia consistent with contaminant. 4. Quadriparesis and neurogenic bladder. 5. Bilateral hydronephrosis and hydroureter, status post Nevarez catheter being changed. PLAN: The patient remains stable. Continue abx, /renal rec-s [facility] staff Problems: Consultation Date/Type/Reason Admit Date/Time Oct 21, 2017 at 22:02 Initial Consult Date 10/23/17 Type of Consultation: ID Referring Provider: TARAH FONG MACHINE OPERATOR Exam/Review of Systems Vital Signs Vitals Vital Signs Date Time Temp Pulse Resp B/P Pulse Ox O2 Delivery O2 Flow Rate FiO2 10/27/17 14:00 98.6 64 20 109/54 96 Intake and Output 10/26/17 10/26/17 10/27/17 15:00 23:00 07:00 Intake Total 100 ml 1718.25 ml 580 ml Output Total 1200 ml 1400 ml Balance 100 ml 518.25 ml -820 ml Results Result Diagram: 10/27/17 0515 10/27/17 0515 Results 24 hrs Laboratory Tests Test 10/27/17 05:15 10/27/17 16:07 White Blood Count 6.3 # Red Blood Count 3.65 L Hemoglobin 11.3 L Hematocrit 33.1 L Mean Corpuscular Volume 90.7 Mean Corpuscular Hemoglobin 31.0 Mean Corpuscular Hemoglobin Concent 34.1 Red Cell Distribution Width 13.3 Platelet Count 321 Mean Platelet Volume 9.4 Neutrophils % 45.9 Lymphocytes % 42.3 Monocytes % 7.2 Eosinophils % 4.0 Basophils % 0.3 Nucleated Red Blood Cells % 0.0 Neutrophils # 2.9 Lymphocytes # 2.7 Monocytes # 0.5 Eosinophils # 0.3 Basophils # 0.0 Nucleated Red Blood Cells # 0.0 Sodium Level 142 Potassium Level 4.2 Chloride Level 104 Carbon Dioxide Level 28 Anion Gap 14 Blood Urea Nitrogen 9 Creatinine 0.52 L Glucose Level 100 Calcium Level 9.7 Phosphorus Level 4.3 Magnesium Level 1.6 L Total Bilirubin 0.2 Direct Bilirubin 0.00 Indirect Bilirubin 0.2 Aspartate Amino Transf (AST/SGOT) 20 Alanine Aminotransferase (ALT/SGPT) 37 Alkaline Phosphatase 96 Total Protein 6.5 Albumin 3.6 Globulin 2.90 Albumin/Globulin Ratio 1.24 Tobramycin Level Trough < 0.6 L Medications Medications Current Medications Acetaminophen (Tylenol Tab) 650 mg Q6H PRN PO PAIN AND OR ELEVATED TEMP; Start 10/21/17 at 23:00 Ascorbic Acid (Vitamin C) 500 mg BID PO Last administered on 10/27/17 09:01; Admin Dose 500 MG; Start 10/22/17 at 09:00 Baclofen (Lioresal) 5 mg TID PO Last administered on 10/27/17 12:24; Admin Dose 5 MG; Start 10/22/17 at 09:00 Bisacodyl (Dulcolax Supp) 10 mg DAILY [place] Last administered on 10/26/17 18:09; Admin Dose 10 MG; Start 10/22/17 at 09:00 Cholecalciferol (Vitamin D) 2,000 unit DAILY PO Last administered on 10/27/17 09:01; Admin Dose 2,000 UNIT; Start 10/22/17 at 09:00 Clotrimazole (Lotrimin Cr) 1 applic BID TOP Last administered on 10/27/17 09: 07; Admin Dose 1 APPLIC; Start 10/22/17 at 09:00 Docusate Sodium (Colace) 100 mg BID PO Last administered on 10/26/17 20:44; Admin Dose 100 MG; Start 10/22/17 at 09:00 Enoxaparin Sodium (Lovenox) 40 mg Q24H SC Last administered on 10/26/17 22:37 ; Admin Dose 40 MG; Start 10/21/17 at 23:00 Ferrous Sulfate (Ferrous Sulfate (Ec)) 325 mg TID PO Last administered on 12:24; Admin Dose 325 MG; Start 10/22/17 at 09:00 Folic Acid (Folic Acid) 1 mg DAILY PO Last administered on 10/27/17 09:02; Admin Dose 1 MG; Start 10/22/17 at 09:00 Gabapentin (Neurontin) 100 mg TID PO Last administered on 10/27/17 12:24; Admin Dose 100 MG; Start 10/22/17 at 09:00 Senna (Senokot) 1 tab QHS PO Last administered on 10/26/17 20:44; Admin Dose 1 TAB; Start 10/22/17 at 21:00 Simethicone (Mylicon) 80 mg QID PO Last administered on 10/27/17 17:22; Admin Dose 80 MG; Start 10/22/17 at 09:00 Ondansetron HCl (Zofran Inj) 4 mg Q6H PRN IV NAUSEA AND/OR VOMITING; Start at 23:00 Miscellaneous Information (Pending [facility] Order For Wound Care) This patient mendez... PRN PRN XX WOUND CARE; Start 10/22/17 at 02:00 Bisacodyl (Dulcolax) 10 mg DAILY PRN PO CONSTIPATION Last administered on 02:33; Admin Dose 10 MG; Start 10/24/17 at 10:30 Acetaminophen/ Hydrocodone Bitart ([place] (10/325)) 1 tab Q6H PRN PO MODERATE PAIN LEVEL 4-6 Last administered on 10/27/17 12:26; Admin Dose 1 TAB; Start at 14:30 Tobramycin TOBRAMYCIN PER PHARMACY NOTE XX ; Start 10/25/17 at 15:00 Ampicillin 50 ml @ 100 mls/hr Q8 IVPB Last administered on 10/27/17 14:09; Admin Dose 100 MLS/HR; Start 10/25/17 at 22:00 Tobramycin/Sodium Chloride (Tobramycin/NS) 108.25 ml @ 103.75 mls/hr Q24H IVPB Last administered on 10/27/17 17:22; Admin Dose 103.75 MLS/HR; Start at 17:00 Polyethylene Glycol (Miralax) 8.5 gm DAILY PO Last administered on 10/26/17t 11 :06; Admin Dose 8.5 GM; Start 10/26/17 at 09:30 SANTA BHAT NP Oct 27, 2017 18:52
[2017-10-27 20:00] VITALS: BP 118/56; RESP 20
[2017-10-27] MEDS: SENNA TAB PO SCH (20:29)
[2017-10-27] MEDS: ENOXAPARIN 40 MG/0.4 ML SYG SC SCH (22:15)
[2017-10-28 02:00] VITALS: BP 109/56; RESP 20
[2017-10-28] MEDS: AMPICILLIN 1 GM/NS (PMX) 50 ML IVPB SCH ×2 (05:04→15:13)
[2017-10-28] MEDS: HYDROCODONE/APAP (10/325) TAB PO PRN ×3 (05:05→18:37)
[2017-10-28 08:00] VITALS: BP 110/64; RESP 18
--- NOTE | 2017-10-28 09:52 | PN ---
Date/Time of Note Date/Time of Note DATE: 10/28/17 TIME: 09:50 Assessment/Plan VTE Prophylaxis VTE Prophylaxis Intervention: LMWH Lines/Catheters IV Catheter Type (from [facility]): Saline Lock Urinary Cath still in place: Yes Reason Cath still needed: other (indicate) Assessment/Plan Assessment/Plan 1. Complicated urinary tract infection. Final cultures reviewed, ID to adjust antibiotics, 2. Sepsis with underlying gram-positive bacteremia. No evidence of any septic shock. Infectious diseases following. 3. Bilateral hydronephrosis and hydroureter. Continue empiric antibiotics. Urology evaluation. S/P Nevarez replacement. 4. Normocytic, normochromic anemia. Monitor H&H closely. The patient already on iron supplements. 5. Neurogenic bladder. Most probably secondary to the patient's spinal cord injury. The patient currently has a Nevarez catheter in place that is draining well. 6. Quadriparesis. Continue supportive care. Turn every 2 hours. 7. DVT prophylaxis. Subcutaneous Lovenox. 8. Plan. : Continue ID antibiotic regimen recommendations, DC planning in process. Janell marrero has chosen not to return to the assisted facility from where he was sent due to the fact that he states that he received very poor care and as such case management is working on optional placement. Continue supportive care. Subjective 24 Hr Interval Summary Free Text/Dictation No new complaints. happy with care Exam/Review of Systems Vital Signs Vitals Vital Signs Date Time Temp Pulse Resp B/P Pulse Ox O2 Delivery O2 Flow Rate FiO2 10/28/17 08:00 98.8 72 18 110/64 18 Intake and Output 10/27/17 10/27/17 10/28/17 15:00 23:00 07:00 Intake Total 50 ml 1258.25 ml 740 ml Output Total 1000 ml 1100 ml Balance 50 ml 258.25 ml -360 ml Exam General: Adequately build 62 year-old male lying in bed in no apparent distress. HEENT: Normocephalic, atraumatic. Respiratory: Bilaterally diminished breath sounds. No labored breathing Cardiovascular: S1, S2 heard. Regular rate and rhythm. Abdomen: Soft, nontender, and nondistended. Bowel sounds positive in all 4 quadrants. Genitourinary: Nevarez catheter in place draining clear urine Extremities: No cyanosis, no clubbing. Bilateral trace pedal edema. Peripheral pulses palpable. Neurologic: The patient is awake, alert, and oriented. Quadriparesis. Results Result Diagram: 10/27/17 0515 10/27/17 0515 Results 24 hrs Laboratory Tests Test 10/27/17 16:07 Tobramycin Level Trough < 0.6 L Medications Medications Current Medications Acetaminophen (Tylenol Tab) 650 mg Q6H PRN PO PAIN AND OR ELEVATED TEMP; Start 10/21/17 at 23:00 Ascorbic Acid (Vitamin C) 500 mg BID PO Last administered on 10/27/17 20:29; Admin Dose 500 MG; Start 10/22/17 at 09:00 Baclofen (Lioresal) 5 mg TID PO Last administered on 10/27/17 20:29; Admin Dose 5 MG; Start 10/22/17 at 09:00 Bisacodyl (Dulcolax Supp) 10 mg DAILY [place] Last administered on 10/26/17 18:09; Admin Dose 10 MG; Start 10/22/17 at 09:00 Cholecalciferol (Vitamin D) 2,000 unit DAILY PO Last administered on 10/27/17 09:01; Admin Dose 2,000 UNIT; Start 10/22/17 at 09:00 Clotrimazole (Lotrimin Cr) 1 applic BID TOP Last administered on 10/27/17 20: 30; Admin Dose 1 APPLIC; Start 10/22/17 at 09:00 Docusate Sodium (Colace) 100 mg BID PO Last administered on 10/27/17 20:29; Admin Dose 100 MG; Start 10/22/17 at 09:00 Enoxaparin Sodium (Lovenox) 40 mg Q24H SC Last administered on 10/27/17 22:15 ; Admin Dose 40 MG; Start 10/21/17 at 23:00 Ferrous Sulfate (Ferrous Sulfate (Ec)) 325 mg TID PO Last administered on 20:29; Admin Dose 325 MG; Start 10/22/17 at 09:00 Folic Acid (Folic Acid) 1 mg DAILY PO Last administered on 10/27/17 09:02; Admin Dose 1 MG; Start 10/22/17 at 09:00 Gabapentin (Neurontin) 100 mg TID PO Last administered on 10/27/17 20:29; Admin Dose 100 MG; Start 10/22/17 at 09:00 Senna (Senokot) 1 tab QHS PO Last administered on 10/27/17 20:29; Admin Dose 1 TAB; Start 10/22/17 at 21:00 Simethicone (Mylicon) 80 mg QID PO Last administered on 10/27/17 20:29; Admin Dose 80 MG; Start 10/22/17 at 09:00 Ondansetron HCl (Zofran Inj) 4 mg Q6H PRN IV NAUSEA AND/OR VOMITING; Start at 23:00 [facility] This patient mendez... PRN PRN XX WOUND CARE; Start 10/22/17 at 02:00 Bisacodyl (Dulcolax) 10 mg DAILY PRN PO CONSTIPATION Last administered on 02:33; Admin Dose 10 MG; Start 10/24/17 at 10:30 Acetaminophen/ Hydrocodone Bitart ([place] (10/325)) 1 tab Q6H PRN PO MODERATE PAIN LEVEL 4-6 Last administered on 10/28/17 05:05; Admin Dose 1 TAB; Start at 14:30 Tobramycin TOBRAMYCIN PER PHARMACY NOTE XX ; Start 10/25/17 at 15:00 Ampicillin 50 ml @ 100 mls/hr Q8 IVPB Last administered on 10/28/17 05:04; Admin Dose 100 MLS/HR; Start 10/25/17 at 22:00 Tobramycin/Sodium Chloride (Tobramycin/NS) 108.25 ml @ 103.75 mls/hr Q24H IVPB Last administered on 10/27/17 17:22; Admin Dose 103.75 MLS/HR; Start at 17:00 Polyethylene Glycol (Miralax) 8.5 gm DAILY PO Last administered on 10/26/17 11 :06; Admin Dose 8.5 GM; Start 10/26/17 at 09:30 ORAL ALLISON Oct 28, 2017 09:52
[2017-10-28] MEDS: FOLIC ACID 1 MG TAB PO SCH (09:57)
[2017-10-28] MEDS: FERROUS SULFATE (EC) 325 MG TAB PO SCH ×2 (09:57→12:50)
[2017-10-28] MEDS: DOCUSATE SODIUM 100 MG CAP PO SCH (09:57)
[2017-10-28] MEDS: BACLOFEN 10 MG TAB PO SCH ×2 (09:57→12:50)
[2017-10-28] MEDS: ASCORBIC ACID 500 MG TAB PO SCH (09:58)
[2017-10-28] MEDS: POLYETHYLENE GLYCOL 17 GM PACKET PO SCH (09:58)
[2017-10-28] MEDS: BISACODYL 10 MG SUPP PR SCH (09:58)
[2017-10-28] MEDS: CLOTRIMAZOLE 1% 30 GM CR TOP SCH (09:58)
[2017-10-28] MEDS: CHOLECALCIFEROL 2,000 UNIT CAP PO SCH (09:58)
[2017-10-28] MEDS: GABAPENTIN 100 MG CAP PO SCH ×2 (09:58→12:50)
[2017-10-28] MEDS ORDERED: MAGNESIUM CITRATE 300 ML BTL PO SCH (13:30)
[2017-10-28] MEDS ORDERED: POLYETHYLENE GLYCOL 17 GM PACKET PO SCH (13:30)
[2017-10-28 14:00] VITALS: BP 104/54; RESP 20
--- NOTE | 2017-10-28 14:21 | CONS ---
Date/Time of Note Date/Time of Note DATE: 10/28/17 TIME: 14:20 Assessment/Plan Assessment/Plan Chief Complaint/Hosp Course SUBJECTIVE: No acute events overnight. Looks comfortable, afebrile MICROBIOLOGY: Blood culture grew coagulase-negative staph species on admission. Repeat blood cultures negative. Urine culture growing multidrug resistant Morganella morganii and Enterococcus species. Abx: Tobramycin, Ampicillin PHYSICAL EXAMINATION: GENERAL: Well-developed, elderly man in no distress. HEENT: Head atraumatic, normocephalic. Sclerae anicteric. Buccal mucosa dry. NECK: Supple. CHEST: Rise symmetrical. Breath sounds diminished to bases. HEART: S1, S2. ABDOMEN: Soft. Bowel tones present. ASSESSMENT: 1. Status post sepsis on admission. 2. Multidrug resistant urinary tract infection. 3. Coagulase-negative staph bacteremia consistent with contaminant. 4. Quadriparesis and neurogenic bladder. 5. Bilateral hydronephrosis and hydroureter, status post Nevarez catheter being changed. PLAN: The patient remains stable. Continue abx to complete 7 days, /renal rec-s [facility] staff Problems: Consultation Date/Type/Reason Admit Date/Time Oct 21, 2017 at 22:02 Initial Consult Date 10/23/17 Type of Consultation: ID Referring Provider: TARAH FONG [employer]GO AGENT Exam/Review of Systems Vital Signs Vitals Vital Signs Date Time Temp Pulse Resp B/P Pulse Ox O2 Delivery O2 Flow Rate FiO2 10/28/17 08:00 98.8 72 18 110/64 18 Intake and Output 10/27/17 10/27/17 10/28/17 15:00 23:00 07:00 Intake Total 50 ml 1258.25 ml 740 ml Output Total 1000 ml 1100 ml Balance 50 ml 258.25 ml -360 ml Results Result Diagram: 10/27/17 0515 10/27/17 0515 Results 24 hrs Laboratory Tests Test 10/27/17 16:07 Tobramycin Level Trough < 0.6 L Medications Medications Current Medications Acetaminophen (Tylenol Tab) 650 mg Q6H PRN PO PAIN AND OR ELEVATED TEMP; Start 10/21/17 at 23:00 Ascorbic Acid (Vitamin C) 500 mg BID PO Last administered on 10/28/17t 09:58; Admin Dose 500 MG; Start 10/22/17 at 09:00 Baclofen (Lioresal) 5 mg TID PO Last administered on 10/28/17 12:50; Admin Dose 5 MG; Start 10/22/17 at 09:00 Bisacodyl (Dulcolax Supp) 10 mg DAILY [place] Last administered on 10/28/17 09:58; Admin Dose 10 MG; Start 10/22/17 at 09:00 Cholecalciferol (Vitamin D) 2,000 unit DAILY PO Last administered on 10/28/17 09:58; Admin Dose 2,000 UNIT; Start 10/22/17 at 09:00 Clotrimazole (Lotrimin Cr) 1 applic BID TOP Last administered on 10/28/17 09: 58; Admin Dose 1 APPLIC; Start 10/22/17 at 09:00 Docusate Sodium (Colace) 100 mg BID PO Last administered on 10/28/17 09:57; Admin Dose 100 MG; Start 10/22/17 at 09:00 Enoxaparin Sodium (Lovenox) 40 mg Q24H SC Last administered on 10/27/17 22:15 ; Admin Dose 40 MG; Start 10/21/17 at 23:00 Ferrous Sulfate (Ferrous Sulfate (Ec)) 325 mg TID PO Last administered on 12:50; Admin Dose 325 MG; Start 10/22/17 at 09:00 Folic Acid (Folic Acid) 1 mg DAILY PO Last administered on 10/28/17 09:57; Admin Dose 1 MG; Start 10/22/17 at 09:00 Gabapentin (Neurontin) 100 mg TID PO Last administered on 10/28/17 12:50; Admin Dose 100 MG; Start 10/22/17 at 09:00 Senna (Senokot) 1 tab QHS PO Last administered on 10/27/17 20:29; Admin Dose 1 TAB; Start 10/22/17 at 21:00 Simethicone (Mylicon) 80 mg QID PO Last administered on 10/28/17 12:50; Admin Dose 80 MG; Start 10/22/17 at 09:00 Ondansetron HCl (Zofran Inj) 4 mg Q6H PRN IV NAUSEA AND/OR VOMITING; Start at 23:00 Miscellaneous Information (Pending [facility] Order For Wound Care) This patient mendez... PRN PRN XX WOUND CARE; Start 10/22/17 at 02:00 Bisacodyl (Dulcolax) 10 mg DAILY PRN PO CONSTIPATION Last administered on 02:33; Admin Dose 10 MG; Start 10/24/17 at 10:30 Acetaminophen/ Hydrocodone Bitart ([place] (10/325)) 1 tab Q6H PRN PO MODERATE PAIN LEVEL 4-6 Last administered on 10/28/17 12:50; Admin Dose 1 TAB; Start at 14:30 Tobramycin TOBRAMYCIN PER PHARMACY NOTE XX ; Start 10/25/17 at 15:00 Ampicillin 50 ml @ 100 mls/hr Q8 IVPB Last administered on 10/28/17 05:04; Admin Dose 100 MLS/HR; Start 10/25/17 at 22:00 Tobramycin/Sodium Chloride (Tobramycin/NS) 108.25 ml @ 103.75 mls/hr Q24H IVPB Last administered on 10/27/17 17:22; Admin Dose 103.75 MLS/HR; Start at 17:00 Magnesium Citrate (Citroma) 300 ml ONCE PO ; Start 10/28/17 at 13:30; Stop 10/28 at 15:00 Polyethylene Glycol (Miralax) 17 gm DAILY PO ; Start 10/28/17 at 13:30 SANTA BHAT NP Oct 28, 2017 14:20
[2017-10-28] MEDS ORDERED: TOBRAMYCIN XX (14:35)
[2017-10-28] MEDS ORDERED: [UNRECOGNIZED DRUG - CODE] IVPB (14:35)
[2017-10-28] MEDS ORDERED: AMPI1VIA6 IV (14:35)
[2017-10-28] MEDS: SOD CHLORIDE 0.9% IVPB SCH (17:00)
[2017-10-28] MEDS: TOBRAMYCIN IVPB SCH (17:00)
--- NOTE | 2017-10-28 17:37 | CONS ---
Date/Time of Note Date/Time of Note DATE: 10/28/17 TIME: 17:35 Assessment/Plan Assessment/Plan Additional Assessment/Plan 1. Bilateral Hydronpehrosis with hydroureter 2. complicated UTI wth Urine cx grew morganella and Enterococcus 3. Neurogenci bladder 4. Quadriplegia 5. Gram negative staph bacteremia Plan: IV abx ampicillin and Tobramcyin, renally dosed, currently Cr and electrolytes normal yesterday, no labs today to review yet, watch for cr and Mag since pt is on tobramycin will follow up Consultation Date/Type/Reason Admit Date/Time Oct 21, 2017 at 22:02 Initial Consult Date 10/23/17 Type of Consultation: NEPHROLOGY Referring Provider: TARAH FONG NP 24 HR Interval Summary Free Text/Dictation No labs today available to review yet Exam/Review of Systems Vital Signs Vitals Vital Signs Date Time Temp Pulse Resp B/P Pulse Ox O2 Delivery O2 Flow Rate FiO2 10/28/17 14:00 98.6 76 20 104/54 96 Intake and Output 10/27/17 10/27/17 10/28/17 15:00 23:00 07:00 Intake Total 50 ml 1258.25 ml 740 ml Output Total 1000 ml 1100 ml Balance 50 ml 258.25 ml -360 ml Exam General: awake,alert, no acute distress HEENT: Normocephalic, atraumatic. Respiratory: Bilaterally diminished breath sounds. Cardiovascular: S1, S2 heard. Regular rate and rhythm. Abdomen: Soft, nontender, and nondistended. BS + Genitourinary: Nevarez catheter in place. Extremities: No cyanosis, no clubbing. Bilateral trace pedal edema. Peripheral pulses palpable. Neurologic: Quadriparesis Results Result Diagram: 10/27/1715 10/27/1715 Medications Medications Current Medications Acetaminophen (Tylenol Tab) 650 mg Q6H PRN PO PAIN AND OR ELEVATED TEMP; Start 10/21/17 at 23:00 Ascorbic Acid (Vitamin C) 500 mg BID PO Last administered on 10/28/17 09:58; Admin Dose 500 MG; Start 10/22/17 at 09:00 Baclofen (Lioresal) 5 mg TID PO Last administered on 10/28/17 12:50; Admin Dose 5 MG; Start 10/22/17 at 09:00 Bisacodyl (Dulcolax Supp) 10 mg DAILY [place] Last administered on 10/28/17 09:58; Admin Dose 10 MG; Start 10/22/17 at 09:00 Cholecalciferol (Vitamin D) 2,000 unit DAILY PO Last administered on 10/28/17 09:58; Admin Dose 2,000 UNIT; Start 10/22/17 at 09:00 Clotrimazole (Lotrimin Cr) 1 applic BID TOP Last administered on 10/28/17 09: 58; Admin Dose 1 APPLIC; Start 10/22/17 at 09:00 Docusate Sodium (Colace) 100 mg BID PO Last administered on 10/28/17 09:57; Admin Dose 100 MG; Start 10/22/17 at 09:00 Enoxaparin Sodium (Lovenox) 40 mg Q24H SC Last administered on 10/27/17 22:15 ; Admin Dose 40 MG; Start 10/21/17 at 23:00 Ferrous Sulfate (Ferrous Sulfate (Ec)) 325 mg TID PO Last administered on 12:50; Admin Dose 325 MG; Start 10/22/17 at 09:00 Folic Acid (Folic Acid) 1 mg DAILY PO Last administered on 10/28/17 09:57; Admin Dose 1 MG; Start 10/22/17 at 09:00 Gabapentin (Neurontin) 100 mg TID PO Last administered on 10/28/17 12:50; Admin Dose 100 MG; Start 10/22/17 at 09:00 Senna (Senokot) 1 tab QHS PO Last administered on 10/27/17 20:29; Admin Dose 1 TAB; Start 10/22/17 at 21:00 Simethicone (Mylicon) 80 mg QID PO Last administered on 10/28/17 12:50; Admin Dose 80 MG; Start 10/22/17 at 09:00 Ondansetron HCl (Zofran Inj) 4 mg Q6H PRN IV NAUSEA AND/OR VOMITING; Start at 23:00 Miscellaneous Information (Pending [facility] Order For Wound Care) This patient mendez... PRN PRN XX WOUND CARE; Start 10/22/17 at 02:00 Bisacodyl (Dulcolax) 10 mg DAILY PRN PO CONSTIPATION Last administered on 02:33; Admin Dose 10 MG; Start 10/24/17 at 10:30 Acetaminophen/ Hydrocodone Bitart ([place] ()) 1 tab Q6H PRN PO MODERATE PAIN LEVEL 4-6 Last administered on 10/28/17 12:50; Admin Dose 1 TAB; Start at 14:30 Tobramycin TOBRAMYCIN PER PHARMACY NOTE XX ; Start 10/25/17 at 15:00 Ampicillin 50 ml @ 100 mls/hr Q8 IVPB Last administered on 10/28/17 15:13; Admin Dose 100 MLS/HR; Start 10/25/17 at 22:00 Tobramycin/Sodium Chloride (Tobramycin/NS) 108.25 ml @ 103.75 mls/hr Q24H IVPB Last administered on 10/27/17 17:22; Admin Dose 103.75 MLS/HR; Start at 17:00 Polyethylene Glycol (Miralax) 17 gm DAILY PO Last administered on 10/28/17 15: 13; Admin Dose 17 GM; Start 10/28/17 at 13:30 JOSE MANUEL WILL MD Oct 28, 2017 17:37
--- NOTE | 2017-10-29 08:12 | DS ---
Date/Time of Note Date/Time of Note DATE: 10/29/17 TIME: 08:11 Discharge Summary Admission/Discharge Info Admit Date/Time Oct 21, 2017 at 22:02 Discharge Date/Time Oct 28, 2017 at 18:53 Discharge Diagnosis 1. Complicated urinary tract infection. Status post treatment 2. Sepsis with underlying gram-positive bacteremia. Resolved 3. Bilateral hydronephrosis and hydroureter : 2/2 neurogenic bladder, s/p urology eval 4. Normocytic, normochromic anemia. Chronic / stable 5. Neurogenic bladder. secondary to the patient's spinal cord injury. The patient currently has a Nevarez catheter in place that is draining well. 6. Quadriparesis. Continue supportive care. Turn every 2 hours. Patient Condition: Stable Consults ID: Monty Urology: Karli Procedures see hosp course . Hx of Present Illness see hosp course . Hospital Course 62-year-old male, known quadriplegic admitted for a complicated urinary tract infection. Patient has chronic neurogenic bladder secondary to quadriplegia from a traumatic fall and has a chronic indwelling Nevarez catheter that was thought to be blocked. He was seen by urology, Nevarez catheter was changed out, and his urinary distention improved was also found to have a mild to moderate bilateral hydronephrosis and hydroureter due to that, and needs after the Nevarez was changed patient seemed to improve. His microbiology showed that he also had a coagulase-negative bacteremia in addition to accompanied a urinary tract infection and infectious disease was called on the case. The patient was treated aggressively with antibiotics and repeat blood cultures were negative. He had a somewhat prolonged stay in the hospital because he did not want to return to the [facility] facility [facility] she came because of the pocket he was receiving that. However were unable to find an alternate placement, and eventually patient shows to return to the facility he came from. He is being discharged in stable condition a situation with which she has been in for the last couple of days. Home Meds Active Scripts [Tobramycin Iv Per Pharmacy] 1 EA EACH No Conflict Check, 0 EA XX NOTE Prov:ORAL ALLISON 10/28/17 Ampicillin Sodium (Ampicillin Sodium) 1 Gm Vial.port, 1 GM IV Q8 for 7 Days Prov:ORAL ALLISON 10/28/17 Tobramycin-NS (Tobramycin-NS) 60 Mg/50 Ml Piggyback, 330 MG IVPB Q24H for 7 Days , EA Prov:ORAL ALLISON. 10/28/17 Reported Medications Cholecalciferol (Vitamin D3) (VITAMIN D-3) 2,000 Unit Capsule, 2000 UNIT PO Q NOON, CAP 10/21/17 Ascorbic Acid (Vitamin C) 500 Mg Tab, 500 MG PO BID, TAB 10/21/17 Multivit,Calc,Mins/Iron/Folic (Therapeutic-M Tablet) 1 Each Tablet, 1 EACH PO NOON, TAB 10/21/17 Simethicone (GAS RELIEF) 80 Mg Tab.chew, 80 MG PO QID, TAB.CHEW 10/21/17 Sennosides* (Senna Lax*) 8.6 Mg Tablet, 1 TAB PO QHS, TAB 10/21/17 Gabapentin* (Neurontin*) 100 Mg Capsule, 100 MG PO TID, #90 CAP 10/21/17 Metformin Hcl* (Metformin Hcl*) 500 Mg Tablet, 500 MG PO WITH BREAKFAST DINNE, # 60 TAB 10/21/17 Lactobacillus Acidophilus* (Lactinex*) 1 Tab Chew, 1 TAB PO TID, TAB 10/21/17 Hydrocodone/Acetaminophen ([place] 10-325 Tablet) 1 Each Tablet, 1 EACH PO Q6H, TAB 10/21/17 Glycerin* (Glycerin (Adult)*) 1 Each Supp.rect, 1 EACH WA DAILY Y for CONSTIPATION, SUPP.RECT 10/21/17 Folic Acid* (Folic Acid*) 1 Mg Tablet, 1 MG PO DAILY, TAB 10/21/17 [place]-3 Fatty Acids/Fish Oil (Fish Oil 1,000 mg Capsule) 1 Each Capsule, 1 EACH PO TID, CAP 10/21/17 Ferrous Sulfate* (Ferrous Sulfate*) 325 Mg Tabec, 325 MG PO TID, TAB 10/21/17 Enoxaparin Sodium* (Enoxaparin Sodium*) 40 Mg/0.4 Ml Syringe, 40 MG SC Q24H, SYR 10/21/17 Docusate Sodium* (Docusate Sodium*) 100 Mg Capsule, 100 MG PO BID, #60 CAP 10/21/17 Clotrimazole* (Lotrimin*) 1%-30 Gm Cream..g., 1 APPLIC TOP BID, TUB 10/21/17 Bisacodyl* (Bisacodyl*) 10 Mg Supp, 10 MG [place] DAILY, SUPP 10/21/17 Baclofen* (Baclofen*) 10 Mg Tablet, 5 MG PO TID, TAB 10/21/17 Dextran 70/Hypromellose/Pf (ARTIFICIAL TEARS DROPS) 1 Each Droperette, 1 EACH OP QID 10/21/17 Aluminum Hydroxide (Aluminum Hydroxide) 320 Mg/5 Ml Oral.susp, 30 ML PO Q4H 10/21/17 Albuterol Sulfate* (Albuterol Sulfate* Neb) 0.083%-3 Ml Neb, 2.5 MG NEB Q6H Y for WHEEZING AND SOB, #30 VIAL 10/21/17 Acetaminophen* (Acetaminophen*) 325 Mg Tablet, 650 MG PO Q6H Y for PAIN AND OR ELEVATED TEMP, #30 TAB 10/21/17 Discontinued Reported Medications Hydrocodone/Acetaminophen ([place] 5-325 Tablet) 1 Each Tablet, 1 EACH PO Q6H, TAB 10/21/17 Follow-up Plan Patient will be followed by his prior primary care physician at the facility, I will complete his antibiotic course for a total of 2 weeks there as well. . Primary Care Provider Care Physician No Primary Time spent on discharge: > 30 minutes ORAL ALLISON Oct 29, 2017 08:12
[2017-10-30] MEDS ORDERED: PIPER-TAZO 3.375 GM IV (PMX) 50 ML IV ONE (10:30)
== END 2017-10-28 18:53 | disposition home or self-care (01) | DRG 871 ==
LOC: E/R 18:15 → PP2 22:02
PROVIDERS: ADMIT Family Medicine; ATTEND Family Medicine
DX: A41.89 Other specified sepsis (principal); G82.50 Quadriplegia, unspecified; N31.9 Neuromuscular dysfunction of bladder, unspecified; S14.107S Unspecified injury at C7 level of cervical spinal cord, sequela; S12.600S Unspecified displaced fracture of seventh cervical vertebra, sequela; N13.6 Pyonephrosis; R73.03 Prediabetes; K57.90 Diverticulosis of intestine, part unspecified, without perforation or abscess without bleeding; W19.XXXS Unspecified fall, sequela; Z74.01 Bed confinement status; Z87.891 Personal history of nicotine dependence; D64.9 Anemia, unspecified; K57.30 Diverticulosis of large intestine without perforation or abscess without bleeding; R33.9 Retention of urine, unspecified; B95.2 Enterococcus as the cause of diseases classified elsewhere; B96.89 Other specified bacterial agents as the cause of diseases classified elsewhere; Z16.24 Resistance to multiple antibiotics; Z16.23 Resistance to quinolones and fluoroquinolones; Z16.19 Resistance to other specified beta lactam antibiotics
CPT/HCPCS: 36415; 71010; 74176; 76775; 80048; 80053; 80061; 80200; 80202; 81001; 82550; 82728; 83036; 83540; 83735; 84100; 84443; 84560; 85025; 87040; 87081; 87086; 96374; 96375; 97161; J1335; J1650; J1956; J2270; J2405; J2543; J3260; J3370; J3475; J7030; J7050

== ENCOUNTER 2017-10-29 19:34 | Observation (INO) | payer MEDICAID, OTHER ==
[~2017-10-29] VITALS: Ht 172.7 cm; Wt 68.2 kg
[~2017-10-29 19:34] MED LIST: ACET325T45 PO; ALBU2.5V3 NEB; AMPI1VIA6 IV; ASC500 PO; BACL10TA PO; BISA10SU75 PR; CHOL200073 PO; CLOT30CR35 TOP; DEXT1DRO7 OP; DOCU-159 PO; ENOX40DI2 SC; FER325 PO; FOLI-49 PO; GABA100C PO; GLYC1SUP92 PR; HYDR-902 PO; LACTINEX PO; METF500T4 PO; MULT-908 PO; OMEG-135 PO; SENN-53 PO; SIME80TA53 PO; TOBRAMYCIN XX; [UNRECOGNIZED DRUG - CODE] IVPB; [UNRECOGNIZED DRUG - CODE] PO
[2017-10-29 19:42] VITALS: Ht 172.7 cm; Wt 68.2 kg
--- NOTE | 2017-10-29 21:18 | ERD ---
ER Documentation Chief Complaint Chief Complaint sent fr Assisted Living, recent DC from [facility] fr UTI, cant give IV at home HPI Patient is a 62-year-old male with quadriplegia who was discharged from the hospital yesterday for urinary tract infection. He was discharged to his usual home, which the discharge note states is a fdc. He was sent to the ER today because he lives in an assisted living but does not have capacity to provide IV medications. The patient states that he feels better than he did yesterday. He has not had any fever or vomiting. He last received antibiotics yesterday in the hospital. ROS All systems reviewed and are negative except as per history of present illness. Medications Home Meds Active Scripts [Tobramycin Iv Per Pharmacy] 1 EA EACH No Conflict Check, 0 EA XX NOTE Prov:ORAL ALLISON. 10/28/17 Ampicillin Sodium (Ampicillin Sodium) 1 Gm Vial.port, 1 GM IV Q8 for 7 Days Prov:ORAL ALLISON 10/28/17 Tobramycin-NS (Tobramycin-NS) 60 Mg/50 Ml Piggyback, 330 MG IVPB Q24H for 7 Days , EA Prov:ESTEFANY,ORAL Mueller. 10/28/17 Reported Medications Cholecalciferol (Vitamin D3) (VITAMIN D-3) 2,000 Unit Capsule, 2000 UNIT PO Q NOON, CAP 10/21/17 Ascorbic Acid (Vitamin C) 500 Mg Tab, 500 MG PO BID, TAB 10/21/17 Multivit,Calc,Mins/Iron/Folic (Therapeutic-M Tablet) 1 Each Tablet, 1 EACH PO NOON, TAB 10/21/17 Simethicone (GAS RELIEF) 80 Mg Tab.chew, 80 MG PO QID, TAB.CHEW 10/21/17 Sennosides* (Senna Lax*) 8.6 Mg Tablet, 1 TAB PO QHS, TAB 10/21/17 Gabapentin* (Neurontin*) 100 Mg Capsule, 100 MG PO TID, #90 CAP 10/21/17 Metformin Hcl* (Metformin Hcl*) 500 Mg Tablet, 500 MG PO WITH BREAKFAST DINNE, # 60 TAB 10/21/17 Lactobacillus Acidophilus* (Lactinex*) 1 Tab Chew, 1 TAB PO TID, TAB 10/21/17 Hydrocodone/Acetaminophen ([place] 10-325 Tablet) 1 Each Tablet, 1 EACH PO Q6H, TAB 10/21/17 Glycerin* (Glycerin (Adult)*) 1 Each Supp.rect, 1 EACH NE DAILY Y for CONSTIPATION, SUPP.RECT 10/21/17 Folic Acid* (Folic Acid*) 1 Mg Tablet, 1 MG PO DAILY, TAB 10/21/17 [place]-3 Fatty Acids/Fish Oil (Fish Oil 1,000 mg Capsule) 1 Each Capsule, 1 EACH PO TID, CAP 10/21/17 Ferrous Sulfate* (Ferrous Sulfate*) 325 Mg Tabec, 325 MG PO TID, TAB 10/21/17 Enoxaparin Sodium* (Enoxaparin Sodium*) 40 Mg/0.4 Ml Syringe, 40 MG SC Q24H, SYR 10/21/17 Docusate Sodium* (Docusate Sodium*) 100 Mg Capsule, 100 MG PO BID, #60 CAP 10/21/17 Clotrimazole* (Lotrimin*) 1%-30 Gm Cream..g., 1 APPLIC TOP BID, TUB 10/21/17 Bisacodyl* (Bisacodyl*) 10 Mg Supp, 10 MG NE DAILY, SUPP 10/21/17 Baclofen* (Baclofen*) 10 Mg Tablet, 5 MG PO TID, TAB 10/21/17 Dextran 70/Hypromellose/Pf (ARTIFICIAL TEARS DROPS) 1 Each Droperette, 1 EACH OP QID 10/21/17 Aluminum Hydroxide (Aluminum Hydroxide) 320 Mg/5 Ml Oral.susp, 30 ML PO Q4H 10/21/17 Albuterol Sulfate* (Albuterol Sulfate* Neb) 0.083%-3 Ml Neb, 2.5 MG NEB Q6H Y for WHEEZING AND SOB, #30 VIAL 10/21/17 Acetaminophen* (Acetaminophen*) 325 Mg Tablet, 650 MG PO Q6H Y for PAIN AND OR ELEVATED TEMP, #30 TAB 10/21/17 Discontinued Reported Medications Hydrocodone/Acetaminophen ([place] 5-325 Tablet) 1 Each Tablet, 1 EACH PO Q6H, TAB 10/21/17 Allergies Allergies: Coded Allergies: No Known Allergy (Unverified , 10/29/17) PMhx/Soc Past medical history: Diabetes mellitus, neurogenic bladder, quadriplegia Past surgical history: Spinal surgery Social history: No drugs or alcohol for the last 5 years. History of Surgery: Yes (carpal tunnel rt x3 lt x1 cervial surgery) Anesthesia Reaction: No Hx Neurological Disorder: Yes (quadraplegic/work accident) Hx Respiratory Disorders: No Hx Cardiac Disorders: No Hx Psychiatric Problems: No Hx Miscellaneous Medical Probl: Yes (see note) Hx Alcohol Use: No Hx Substance Use: No Hx Tobacco Use: No FmHx Noncontributory Physical Exam Vitals Vital Signs Date Time Temp Pulse Resp B/P Pulse Ox O2 Delivery O2 Flow Rate FiO2 10/30/17 00:17 98.6 60 16 99/59 99 Room Air 10/29/17 23:00 97.9 62 16 105/67 99 Room Air 10/29/17 19:42 97.9 60 18 109/63 99 Physical Exam Const: Alert, no acute distress Head: Atraumatic Eyes: Normal Conjunctiva, No pallor, no icterus ENT: Normal External Ears, Nose and Mouth. Mucous membranes moist Neck: Full range of motion. Resp: Clear to auscultation bilaterally, No wheezes, no rales Cardio: Regular rate and rhythm, no murmurs Abd: Soft, non tender, non distended. Skin: No petechiae or rashes Ext: No cyanosis, or edema Neur: Awake and alert, Contractures of extremities, no facial droop Psych: Normal Mood and Affect Results 24 hrs Current Medications Medications (Trade) Dose Ordered Sig/Serena Route PRN Reason Start Time Stop Time Status Last Admin Dose Admin Acetaminophen/ Hydrocodone Bitart ([place] (5/325)) 1 tab ONCE ONCE PO 10/29/17 23:00 10/29/17 23:01 DC 10/29/17 22:46 Ondansetron HCl (Zofran Inj) 4 mg BRIDGE ORDER PRN IV NAUSEA AND/OR VOMITING 10/29/17 23:00 10/30/17 22:59 Acetaminophen (Tylenol Tab) 650 mg ER BRIDGE PRN PO MILD PAIN/FEVER 10/29/17 23:00 10/30/17 22:59 Procedures/MDM MDM: Patient is a 62-year-old male with quadriplegia who was discharged from the hospital yesterday with positive blood culture and UTI. There is plan for him to receive IV antibiotics at his home, but his assisted living does not provide nursing services and does not have the ability to provide IV antibiotics. I reviewed the patient's cultures, and susceptibilities appear to require an IV antibiotic. I will therefore readmit the patient to observation status to arrange for appropriate disposition to fdc they can provide for the patient's care. There is no evidence of sepsis in the ER or any acute complaint. Departure Diagnosis: Primary Impression: Complicated urinary tract infection Condition: Stable KATE BURCIAGA MD Oct 29, 2017 21:18
[2017-10-29] MEDS ORDERED: ONDANSETRON 4 MG INJ IV PRN (23:00)
[2017-10-29] MEDS ORDERED: HYDROCODONE/APAP (5/325) TAB PO ONE (23:00)
[2017-10-29] MEDS ORDERED: ACETAMINOPHEN 325 MG TAB PO PRN (23:00)
--- NOTE | 2017-10-30 03:28 | PDOCDIS ---
Discharge Instructions CONDITION Patient Condition: Stable HOME CARE INSTRUCTIONS: Diet Instructions: Regular ACTIVITY: Activity Restrictions: Slowly Increase Activity Avoid heavy lifting No Sexual Activity FOLLOW UP/APPOINTMENTS Follow-up Plan Patient is being discharged back to [facility] care facility. Need to complete 10 days course of oral antibiotics OTHER ORDERS: Other Orders: Need to complete 10 days course of oral antibiotics MATTHEW MENA MD Oct 30, 2017 03:28
[2017-10-30] MEDS ORDERED: RIFA300C3 PO (03:33)
[2017-10-30] MEDS ORDERED: CLIN-73 PO (03:33)
[2017-10-30] MEDS ORDERED: AMOX1TAB10 PO (03:33)
[2017-10-30] MEDS ORDERED: KETOROLAC 30 MG INJ IV ONE (03:38)
[2017-10-30] MEDS ORDERED: morphine 2 MG INJ IV ONE (03:39)
--- NOTE | 2017-10-30 03:57 | HP ---
Date/Time of Note Date/Time of Note DATE: 10/30/17 TIME: 03:48 Assessment/Plan VTE Prophylaxis VTE Prophylaxis Intervention: SCD's Assessment/Plan Assessment/Plan ASSESSMENT This is a 62-year-old male, known quadriplegic who was just discharged from here after he was hospitalized for a complicated urinary tract infection and bacteremia and discharged with IV abx to [facility] facility. Patient sent back because facility can not handle IV abx PLAN I will discharge him back with oral antibiotics based on previous sensitivities. HPI/ROS Admit Date/Time Admit Date/Time Hx of Present Illness This is a 62-year-old male, known quadriplegic who was just discharged from here after he was hospitalized for admitted for a complicated urinary tract infection and bacteremia. Patient has chronic neurogenic bladder secondary to quadriplegia from a traumatic fall and has a chronic indwelling Rodrigues catheter that was thought to be blocked. He was seen by urology, Rodrigues catheter was changed out, and his urinary distention improved. He was discharged back to [facility] facility with IV abx, however was sent right back because facility does not give IV abx. I will discharge him back with oral antibiotics based on previous sensitivities. His only complain is chronic upper back pain. His rodrigues catheter is draining well without any sign of obstruction. PMH/Family/Social Past Surgical History Past Surgical Hx: other Social History Smoking Status: Never smoker Exam/Review of Systems Vital Signs Vitals Vital Signs Date Time Temp Pulse Resp B/P Pulse Ox O2 Delivery O2 Flow Rate FiO2 10/30/17 02:49 98.9 63 20 101/59 Room Air 10/30/17 00:17 99 Exam Constitutional: other (no acute distress) Head: atraumatic, normocephalic Respiratory: clear to auscultation, normal air movement Cardiovascular: nl pulses, regular rate and rhythm Gastrointestinal: soft Genitourinary - Male: other (rodrigues in place with yellowish urine) Extremities: normal pulses MATTHEW MENA MD Oct 30, 2017 03:57
--- NOTE | 2017-10-30 04:00 | DS ---
Date/Time of Note Date/Time of Note DATE: 10/30/17 TIME: 03:57 Discharge Summary Admission/Discharge Info Admit Date/Time Discharge Date/Time Discharge Diagnosis 1. Complicated urinary tract infection, dx'd on previous admission: discharged on 10 days course of abx 2. s/p recent Sepsis with underlying gram-positive bacteremia, dx'd on previous admission: Resolved: discharged on 10 days course of abx 3. Bilateral hydronephrosis and hydroureter : 2/2 neurogenic bladder, s/p urology eval and replacement of indwelling rodrigues catheter 4. Chronic Normocytic, normochromic anemia. 5. Neurogenic bladder. secondary to the patient's spinal cord injury. s/p urology eval on recent admission few days ago with replacement of indwelling rodrigues catheter, currently draining well. Patient Condition: Stable Hx of Present Illness Hospital Course This is a 62-year-old male, known quadriplegic who was just discharged from here after he was hospitalized for admitted for a complicated urinary tract infection and bacteremia. Patient has chronic neurogenic bladder secondary to quadriplegia from a traumatic fall and has a chronic indwelling Rodrigues catheter that was thought to be blocked. He was seen by urology, Rodrigues catheter was changed out, and his urinary distention improved. He was discharged back to [facility] facility with IV abx, however was sent right back because facility does not give IV abx. I will discharge him back with oral antibiotics based on previous sensitivities. His only complain is chronic upper back pain. His rodrigues catheter is draining well without any sign of obstruction. Home Meds Active Scripts Clindamycin Hcl* (Clindamycin Hcl*) 300 Mg Capsule, 600 MG PO Q8 for 10 Days, CAP Prov:MATTHEW MENA MD 10/30/17 Rifampin* (Rifampin*) 300 Mg Capsule, 300 MG PO BID for 10 Days, CAP Prov:MATTHEW MENA MD 10/30/17 Amoxicillin/Potassium Clav (Amox-Clav 875-125 mg Tablet) 875-125 mg Tab, 1 TAB PO BID for 10 Days, #20 TAB Prov:MATTHEW MENA MD 10/30/17 Reported Medications Cholecalciferol (Vitamin D3) (VITAMIN D-3) 2,000 Unit Capsule, 2000 UNIT PO Q NOON, CAP 10/21/17 Ascorbic Acid (Vitamin C) 500 Mg Tab, 500 MG PO BID, TAB 10/21/17 Multivit,Calc,Mins/Iron/Folic (Therapeutic-M Tablet) 1 Each Tablet, 1 EACH PO NOON, TAB 10/21/17 Simethicone (GAS RELIEF) 80 Mg Tab.chew, 80 MG PO QID, TAB.CHEW 10/21/17 Sennosides* (Senna Lax*) 8.6 Mg Tablet, 1 TAB PO QHS, TAB 10/21/17 Gabapentin* (Neurontin*) 100 Mg Capsule, 100 MG PO TID, #90 CAP 10/21/17 Metformin Hcl* (Metformin Hcl*) 500 Mg Tablet, 500 MG PO WITH BREAKFAST DINNE, # 60 TAB 10/21/17 Lactobacillus Acidophilus* (Lactinex*) 1 Tab Chew, 1 TAB PO TID, TAB 10/21/17 Hydrocodone/Acetaminophen ([place] 10-325 Tablet) 1 Each Tablet, 1 EACH PO Q6H, TAB 10/21/17 Glycerin* (Glycerin (Adult)*) 1 Each Supp.rect, 1 EACH MT DAILY Y for CONSTIPATION, SUPP.RECT 10/21/17 Folic Acid* (Folic Acid*) 1 Mg Tablet, 1 MG PO DAILY, TAB 10/21/17 [place]-3 Fatty Acids/Fish Oil (Fish Oil 1,000 mg Capsule) 1 Each Capsule, 1 EACH PO TID, CAP 10/21/17 Ferrous Sulfate* (Ferrous Sulfate*) 325 Mg Tabec, 325 MG PO TID, TAB 10/21/17 Enoxaparin Sodium* (Enoxaparin Sodium*) 40 Mg/0.4 Ml Syringe, 40 MG SC Q24H, SYR 10/21/17 Docusate Sodium* (Docusate Sodium*) 100 Mg Capsule, 100 MG PO BID, #60 CAP 10/21/17 Clotrimazole* (Lotrimin*) 1%-30 Gm Cream..g., 1 APPLIC TOP BID, TUB 10/21/17 Bisacodyl* (Bisacodyl*) 10 Mg Supp, 10 MG MT DAILY, SUPP 10/21/17 Baclofen* (Baclofen*) 10 Mg Tablet, 5 MG PO TID, TAB 10/21/17 Dextran 70/Hypromellose/Pf (ARTIFICIAL TEARS DROPS) 1 Each Droperette, 1 EACH OP QID 10/21/17 Aluminum Hydroxide (Aluminum Hydroxide) 320 Mg/5 Ml Oral.susp, 30 ML PO Q4H 10/21/17 Albuterol Sulfate* (Albuterol Sulfate* Neb) 0.083%-3 Ml Neb, 2.5 MG NEB Q6H Y for WHEEZING AND SOB, #30 VIAL 10/21/17 Acetaminophen* (Acetaminophen*) 325 Mg Tablet, 650 MG PO Q6H Y for PAIN AND OR ELEVATED TEMP, #30 TAB 10/21/17 Discontinued Reported Medications Hydrocodone/Acetaminophen ([place] 5-325 Tablet) 1 Each Tablet, 1 EACH PO Q6H, TAB 10/21/17 Discontinued Scripts [Tobramycin Iv Per Pharmacy] 1 EA EACH No Conflict Check, 0 EA XX NOTE Prov:ORAL ALLISON 10/28/17 Ampicillin Sodium (Ampicillin Sodium) 1 Gm Vial.port, 1 GM IV Q8 for 7 Days Prov:ORAL ALLISON 10/28/17 Tobramycin-NS (Tobramycin-NS) 60 Mg/50 Ml Piggyback, 330 MG IVPB Q24H for 7 Days , EA Prov:ORAL ALLISON 10/28/17 Follow-up Plan Patient is being discharged back to board and care facility. Need to complete 10 days course of oral antibiotics Primary Care Provider Care Physician No Primary MATTHEW MENA MD Oct 30, 2017 04:00
[2017-10-30] MEDS ORDERED: SODIUM CHLORIDE 0.9% 1L BAG IV* STA (10:12)
[2017-10-30] MEDS ORDERED: ALBUTEROL 0.083% (NEB) 2.5 MG/3 ML AMP NEB PRN (10:30)
[2017-10-30] MEDS ORDERED: ACETAMINOPHEN 325 MG TAB PO PRN (10:30)
[2017-10-30] MEDS ORDERED: ALUMINUM HYDROXIDE 30 ML CUP PO SCH (10:30)
[2017-10-30 10:54] LABS: BASOPHILS % 0.3 % (0.0-2.0); EOSINOPHILS # 0.2 10^3/ul (0.0-0.5); EOSINOPHILS % 2.4 % (0.0-7.0); HEMATOCRIT 35.5 % (42.0-52.0); HEMOGLOBIN 11.7 g/dl (14.0-18.0); LYMPHOCYTES # 1.8 10^3/ul (0.8-2.9); LYMPHOCYTES % 24.7 % (15.0-51.0); MEAN CORPUSCULAR VOLUME 93.9 fl (82.0-101.0); MEAN PLATELET VOLUME 9.5 fl (7.4-10.4); MONOCYTE # 0.3 10^3/ul (0.3-0.9); MONOCYTES % 4.5 % (0.0-11.0); NEUTROPHILS % 67.8 % (39.0-77.0); PLATELET COUNT 337 10^3/UL (140-415); RED BLOOD COUNT 3.78 10^6/ul (4.70-6.10); RED CELL DISTRIBUTION WIDTH 13.6 % (11.5-14.5); WHITE BLOOD COUNT 7.4 10^3/ul (4.8-10.8)
[2017-10-30] MEDS ORDERED: PIPER-TAZO 3.375 GM IV (PMX) 50 ML ONE (11:04)
[2017-10-30 11:14] LABS: ALBUMIN 3.9 g/dl (3.3-4.9); ALBUMIN/GLOBULIN RATIO 1.56; BILIRUBIN,INDIRECT 0.2 mg/dl (0-1.1); BILIRUBIN,TOTAL 0.2 mg/dl (0.2-1.3); CALCIUM 9.7 mg/dl (8.4-10.2); CREATININE 0.64 mg/dl (0.61-1.24); POTASSIUM 4.9 mmol/L (3.5-5.1); TOTAL PROTEIN 6.4 g/dl (6.1-8.1)
[2017-10-30] MEDS ORDERED: PIPER-TAZO 3.375 GM IV (PMX) 50 ML IV ONE (11:30)
[2017-10-30 11:37] LABS: PROTIME 13.3 Sec (11.9-14.9)
[2017-10-30 11:38] LABS: PARTIAL THROMBOPLASTIN TIME 29.1 Sec (25.0-35.0)
[2017-10-30 12:00] VITALS: TEMP 98.3
[2017-10-30] MEDS: FERROUS SULFATE (EC) 325 MG TAB PO SCH ×2 (13:33→22:06)
[2017-10-30] MEDS: GABAPENTIN 100 MG CAP PO SCH ×2 (13:33→22:04)
[2017-10-30] MEDS: BACLOFEN 10 MG TAB PO SCH ×2 (13:33→22:05)
[2017-10-30] MEDS: ENOXAPARIN 40 MG/0.4 ML SYG SC SCH (13:33)
[2017-10-30] MEDS ORDERED: CLINDAMYCIN 300 MG CAP PO SCH (14:00)
--- NOTE | 2017-10-30 15:35 | HP ---
Date/Time of Note Date/Time of Note DATE: 10/30/17 TIME: 15:30 Assessment/Plan VTE Prophylaxis VTE Prophylaxis Intervention: SCD's Assessment/Plan Chief Complaint/Hosp Course Assessment and plan 1. Complicated urinary tract infection. Continue antibiotic regimen. ID consult follow again. 2. Sepsis secondary to #1. Appears resolved at present. Monitor for now. 3. Bilateral hydronephrosis and hydroureter. Secondary to neurogenic bladder. Patient for outpatient follow-up with urologist. 4. Reported hypotension. Stable at present. 5. Anemia of chronic disease. H&H remained stable. Monitor for now. Disposition and plan: Appears to be improved at this time. Anticipate discharge within the next 24 hours medically stable. Discussed plan of care with Dr. Almanzar Admission Process time: 40minutes Problems: HPI/ROS Admit Date/Time Admit Date/Time Hx of Present Illness There is a 62-year-old male who is quadriplegic from a previous traumatic fall who was recently admitted for complicated urinary tract infection and also found to have mild to moderate bilateral hydronephrosis and hydroureter. Patient was seen by urologist and did have Nevarez catheter was removed. He had a does have a history of neurogenic bladder from his quadriplegia. Patient was planned for discharge back to [facility] facility however it was noted that patient's facility does not accommodate IV antibiotics. We therefore placed him on oral antibiotics to be discharged home on which she was sensitive to. Was reported by the patient was in the emergency room he did have episode of hypotension and as such was admitted back again to [facility] for further evaluation. Currently remains afebrile with no elevation in white count. BMP otherwise appears unremarkable. We will evaluate him for the aformentiond issues. ROS Point review of systems obtained and entirely negative except that mentioned in the history of present illness PMH/Family/Social Past Medical History Medical/Surgical history 1. History of quadriplegia from traumatic fall. 2. History of hydronephrosis with pyelonephritis. 2. Neurogenic bladder 4. Prediabetes Past Surgical History Past Surgical Hx: other Family History Significant Family History: no pertinent family hx Social History Alcohol Use: none Smoking Status: Never smoker Drug Use: none Exam/Review of Systems Vital Signs Vitals Vital Signs Date Time Temp Pulse Resp B/P Pulse Ox O2 Delivery O2 Flow Rate FiO2 10/30/17 12:00 98.3 60 20 110/57 98 Room Air Exam Constitutional: alert, oriented Psych: nl mood/affect Head: normocephalic Neck: No jvd Respiratory: clear to auscultation, normal air movement Cardiovascular: regular rate and rhythm Gastrointestinal: non-tender, soft Musculoskeletal: other (Quadriplegia) Neurological: nl mental status, nl speech Labs Result Diagram: 10/30/17 1030 10/30/17 1030 Medications Medications Current Medications Acetaminophen (Tylenol Tab) 650 mg Q6H PRN PO PAIN AND OR ELEVATED TEMP; Start 10/30/17 at 10:30 Albuterol (Proventil 0.083% (Neb)) 2.5 mg Q6H PRN NEB WHEEZING AND SOB; Start 10/30/17 at 10:30 Amoxicillin/ Clavulanate Potassium (Augmentin) 875 mg BID PO ; Start 10/30/17 at 21:00 Ascorbic Acid (Vitamin C) 500 mg BID PO ; Start 10/30/17 at 21:00 Baclofen (Lioresal) 5 mg TID PO Last administered on 10/30/17 13:33; Admin Dose 5 MG; Start 10/30/17 at 13:00 Bisacodyl (Dulcolax Supp) 10 mg DAILY FL ; Start 10/31/17 at 09:00 Cholecalciferol (Vitamin D) 2,000 unit DAILY PO ; Start 10/31/17 at 09:00 Clindamycin HCl (Cleocin) 600 mg Q8 PO ; Start 10/30/17 at 14:00 Clotrimazole (Lotrimin Cr) 1 applic BID TOP ; Start 10/30/17 at 21:00 Docusate Sodium (Colace) 100 mg BID PO ; Start 10/30/17 at 21:00 Enoxaparin Sodium (Lovenox) 40 mg DAILY SC Last administered on 10/30/17 13:33 ; Admin Dose 40 MG; Start 10/30/17 at 10:30 Ferrous Sulfate (Ferrous Sulfate (Ec)) 325 mg TID PO Last administered on 13:33; Admin Dose 325 MG; Start 10/30/17 at 13:00 Folic Acid (Folic Acid) 1 mg DAILY PO ; Start 10/31/17 at 09:00 Gabapentin (Neurontin) 100 mg TID PO Last administered on 10/30/17 13:33; Admin Dose 100 MG; Start 10/30/17 at 13:00 Acetaminophen/ Hydrocodone Bitart ([place] (10/325)) 1 tab Q6H PRN PO PAIN; Start 10/30/17 at 13:00 Multivitamins/ Minerals (Theragran-M) 1 tab DAILY PO ; Start 10/31/17 at 09:00 Rifampin (Rifampin) 300 mg BID PO ; Start 10/30/17 at 21:00 Senna (Senokot) 1 tab QHS PO ; Start 10/30/17 at 21:00 Simethicone (Mylicon) 80 mg QID PO Last administered on 10/30/17 13:33; Admin Dose 80 MG; Start 10/30/17 at 13:00 Eye Lubricant (Artificial Tears Oph) 1 drop QID BOTH EYES ; Start 10/30/17 at 17 :00 Lactobacillus Acidophilus (Flor[place]en3 Capsule) 1 each BID PO ; Start 10/30/17 at 21:00 Fish Oil (Fish Oil) 1,000 mg BID PO ; Start 10/30/17 at 21:00 LOCO BEGUM Oct 30, 2017 15:35
[2017-10-30] MEDS: ARTIFICIAL TEARS 15 ML OPH BOTH EYES SCH ×2 (16:33→22:02)
[2017-10-30] MEDS: HYDROCODONE/APAP (10/325) TAB PO PRN (16:34)
[2017-10-30] MEDS: metFORMIN 500 MG TAB PO SCH (17:40)
--- NOTE | 2017-10-30 18:07 | CONS ---
Date/Time of Note Date/Time of Note DATE: 10/30/17 TIME: 17:53 Assessment/Plan Assessment/Plan Chief Complaint/Hosp Course ID PROGRESS NOTE TOTAL ABX DAY CURRENT ABX=>s/p Zosyn IV => Augmentin, Rifampin, Clinda PO 24H INTERVAL SUMMARY * Resting comfortably, no fevers, VSS, NAD * Discharged with [facility] abx to [facility] facility. Patient sent back because facility can not handle IV abx * URINE CULTURE Final Organism 1 MORGANELLA MORGANII SSP MORG. COLONY COUNT >100,000 CFU/ml Organism 2 ENTEROCOCCUS SPECIES COLONY COUNT >100,000 CFU/ml MORMOSP ENT SPS M.I.C. RX M.I.C. 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 Status post sepsis last week resolved => recurrent hypotension requiring re- admission within 24H 2. Multidrug resistant urinary tract infection. * 10/21/17 Urine Cx URINE CULTURE Final Organism 1 MORGANELLA MORGANII SSP MORG. COLONY COUNT >100,000 CFU/ml Organism 2 ENTEROCOCCUS SPECIES COLONY COUNT >100,000 CFU/ml 3. Neurogenic bladder 4. Bilateral hydronephrosis and hydroureter, status post Nevarez catheter being changed. 5. Anemia of chronic disease. INVASIVES: PIV ABX ALLERGY: KNDA CURRENT ABX=>s/p Zosyn IV => Augmentin, Rifampin, Clinda PO ID PLAN 1. Restart IV aminoglycoside to cover GNR UTI 2. Unclear why Clinda PO started -> BCx last admission likely contaminant ? Clinda PO will not treat Enterococcal UTI 3. Continue Augmentin 4. Repeat UA C& S tonight -> Will f/u in am . Problems: Consultation Date/Type/Reason Admit Date/Time Oct 29, 2017 at 22:58 Initial Consult Date Exam/Review of Systems Vital Signs Vitals Vital Signs Date Time Temp Pulse Resp B/P Pulse Ox O2 Delivery O2 Flow Rate FiO2 10/30/17 12:00 98.3 60 20 110/57 98 Room Air Results Result Diagram: 10/30/17 1030 10/30/17 1030 Results 24 hrs Laboratory Tests Test 10/30/17 10:30 10/30/17 13:22 10/30/17 15:14 White Blood Count 7.4 Red Blood Count 3.78 L Hemoglobin 11.7 L Hematocrit 35.5 L Mean Corpuscular Volume 93.9 Mean Corpuscular Hemoglobin 31.0 Mean Corpuscular Hemoglobin Concent 33.0 Red Cell Distribution Width 13.6 Platelet Count 337 Mean Platelet Volume 9.5 Neutrophils % 67.8 Lymphocytes % 24.7 Monocytes % 4.5 Eosinophils % 2.4 Basophils % 0.3 Nucleated Red Blood Cells % 0.0 Neutrophils # 5.0 Lymphocytes # 1.8 Monocytes # 0.3 Eosinophils # 0.2 Basophils # 0.0 Nucleated Red Blood Cells # 0.0 Prothrombin Time 13.3 Prothrombin Time Ratio 1.0 INR International Normalized Ratio 1.00 Activated Partial Thromboplast Time 29.1 Sodium Level 140 Potassium Level 4.9 Chloride Level 100 Carbon Dioxide Level 30 Anion Gap 15 Blood Urea Nitrogen 15 Creatinine 0.64 Glucose Level 159 Lactic Acid Level 1.4 0.8 0.9 Calcium Level 9.7 Total Bilirubin 0.2 Direct Bilirubin 0.00 Indirect Bilirubin 0.2 Aspartate Amino Transf (AST/SGOT) 26 Alanine Aminotransferase (ALT/SGPT) 48 Alkaline Phosphatase 115 Total Protein 6.4 Albumin 3.9 Globulin 2.50 Albumin/Globulin Ratio 1.56 Medications Medications Current Medications Acetaminophen (Tylenol Tab) 650 mg Q6H PRN PO PAIN AND OR ELEVATED TEMP; Start 10/30/17 at 10:30 Albuterol (Proventil 0.083% (Neb)) 2.5 mg Q6H PRN NEB WHEEZING AND SOB; Start 10/30/17 at 10:30 Amoxicillin/ Clavulanate Potassium (Augmentin) 875 mg BID PO ; Start 10/30/17 at 21:00 Ascorbic Acid (Vitamin C) 500 mg BID PO ; Start 10/30/17 at 21:00 Baclofen (Lioresal) 5 mg TID PO Last administered on 10/30/17 13:33; Admin Dose 5 MG; Start 10/30/17 at 13:00 Bisacodyl (Dulcolax Supp) 10 mg DAILY [place] ; Start 10/31/17 at 09:00 Cholecalciferol (Vitamin D) 2,000 unit DAILY PO ; Start 10/31/17 at 09:00 Clindamycin HCl (Cleocin) 600 mg Q8 PO Last administered on 10/30/17 17:42; Admin Dose 600 MG; Start 10/30/17 at 14:00 Clotrimazole (Lotrimin Cr) 1 applic BID TOP ; Start 10/30/17 at 21:00 Docusate Sodium (Colace) 100 mg BID PO ; Start 10/30/17 at 21:00 Enoxaparin Sodium (Lovenox) 40 mg DAILY SC Last administered on 10/30/17 13:33 ; Admin Dose 40 MG; Start 10/30/17 at 10:30 Ferrous Sulfate (Ferrous Sulfate (Ec)) 325 mg TID PO Last administered on 13:33; Admin Dose 325 MG; Start 10/30/17 at 13:00 Folic Acid (Folic Acid) 1 mg DAILY PO ; Start 10/31/17 at 09:00 Gabapentin (Neurontin) 100 mg TID PO Last administered on 10/30/17 13:33; Admin Dose 100 MG; Start 10/30/17 at 13:00 Acetaminophen/ Hydrocodone Bitart ([place] (10/325)) 1 tab Q6H PRN PO PAIN Last administered on 10/30/17 16:34; Admin Dose 1 TAB; Start 10/30/17 at 13:00 Multivitamins/ Minerals (Theragran-M) 1 tab DAILY PO ; Start 10/31/17 at 09:00 Rifampin (Rifampin) 300 mg BID PO ; Start 10/30/17 at 21:00 Senna (Senokot) 1 tab QHS PO ; Start 10/30/17 at 21:00 Simethicone (Mylicon) 80 mg QID PO Last administered on 10/30/17 16:34; Admin Dose 80 MG; Start 10/30/17 at 13:00 Eye Lubricant (Artificial Tears Oph) 1 drop QID BOTH EYES Last administered on 10/30/17t 16:33; Admin Dose 1 DROP; Start 10/30/17 at 17:00 Lactobacillus Acidophilus (Florajen3 Capsule) 1 each BID PO ; Start 10/30/17 at 21:00 Fish Oil (Fish Oil) 1,000 mg BID PO ; Start 10/30/17 at 21:00 ALICIA NAJERA NP Oct 30, 2017 18:03
[2017-10-30] MEDS ORDERED: AMIKACIN IV PER PHARMACY XX SCH (18:30)
[2017-10-30 20:57] VITALS: BP 109/55; RESP 17
[2017-10-30] MEDS ORDERED: AMIKACIN 500 MG in DEXTROSE 5% 100 ML IVPB SCH (21:00)
[2017-10-30] MEDS: CLOTRIMAZOLE 1% 30 GM CR TOP SCH (22:02)
[2017-10-30] MEDS: AMOXICILLIN/CLAV 875 MG TAB PO SCH (22:03)
[2017-10-30] MEDS: FISH OIL 1,000 MG CAP PO SCH (22:03)
[2017-10-30] MEDS: L ACIDOPHIL/B LACTIS/B LONGUM CAPSULE PO SCH (22:03)
[2017-10-30] MEDS: SENNA TAB PO SCH (22:04)
[2017-10-30] MEDS: RIFAMPIN 300 MG CAP PO SCH (22:04)
[2017-10-30] MEDS: DOCUSATE SODIUM 100 MG CAP PO SCH (22:05)
[2017-10-30] MEDS: ASCORBIC ACID 500 MG TAB PO SCH (22:06)
[2017-10-31 03:16] VITALS: BP 109/55; PULSE 66; RESP 17
[2017-10-31 05:56] LABS: BASOPHILS % 0.5 % (0.0-2.0); EOSINOPHILS # 0.3 10^3/ul (0.0-0.5); EOSINOPHILS % 4.5 % (0.0-7.0); HEMATOCRIT 31.5 % (42.0-52.0); HEMOGLOBIN 10.5 g/dl (14.0-18.0); LYMPHOCYTES # 2.6 10^3/ul (0.8-2.9); LYMPHOCYTES % 46.4 % (15.0-51.0); MEAN CORPUSCULAR HEMOGLOBIN 31.2 pg (29.0-33.0); MEAN CORPUSCULAR HGB CONC 33.3 g/dl (32.0-37.0); MEAN CORPUSCULAR VOLUME 93.5 fl (82.0-101.0); MEAN PLATELET VOLUME 9.7 fl (7.4-10.4); MONOCYTE # 0.4 10^3/ul (0.3-0.9); MONOCYTES % 7.9 % (0.0-11.0); NEUTROPHIL # 2.3 10^3/ul (1.6-7.5); NEUTROPHILS % 40.5 % (39.0-77.0); PLATELET COUNT 333 10^3/UL (140-415); RED BLOOD COUNT 3.37 10^6/ul (4.70-6.10); RED CELL DISTRIBUTION WIDTH 13.5 % (11.5-14.5); WHITE BLOOD COUNT 5.6 10^3/ul (4.8-10.8)
[2017-10-31 06:18] LABS: ADD UMIC YES; UR ASCORBIC ACID 20 mg/dL (NEGATIVE); UR BILIRUBIN (Dip) NEGATIVE (NEGATIVE); UR BLOOD (Dip) NEGATIVE (NEGATIVE); UR CLARITY CLEAR (CLEAR); UR COLOR YELLOW (YELLOW); UR GLUCOSE (Dip) NEGATIVE (NEGATIVE); UR KETONES (Dip) NEGATIVE (NEGATIVE); UR LEUKOCYTE ESTERASE (Dip) 1+ Leu/ul (NEGATIVE); UR NITRITE (Dip) NEGATIVE (NEGATIVE); UR RBC 3 /HPF (0-5); UR SPECIFIC GRAVITY (Dip) 1.005 (1.003-1.030); UR TOTAL PROTEIN (Dip) NEGATIVE (NEGATIVE); UR UROBILINOGEN (Dip) NEGATIVE (NEGATIVE)
[2017-10-31 06:28] LABS: CALCIUM 9.5 mg/dl (8.4-10.2); CREATININE 0.64 mg/dl (0.61-1.24); POTASSIUM 4.4 mmol/L (3.5-5.1)
[2017-10-31 08:00] VITALS: BP 134/64; RESP 17
[2017-10-31] MEDS: metFORMIN 500 MG TAB PO SCH ×2 (08:00→17:49)
[2017-10-31] MEDS: CLOTRIMAZOLE 1% 30 GM CR TOP SCH ×2 (08:40→20:41)
[2017-10-31] MEDS: ARTIFICIAL TEARS 15 ML OPH BOTH EYES SCH ×4 (08:40→20:40)
[2017-10-31] MEDS: RIFAMPIN 300 MG CAP PO SCH ×2 (08:41→20:40)
[2017-10-31] MEDS: FERROUS SULFATE (EC) 325 MG TAB PO SCH ×3 (08:41→20:40)
[2017-10-31] MEDS: AMOXICILLIN/CLAV 875 MG TAB PO SCH ×2 (08:41→20:40)
[2017-10-31] MEDS: BACLOFEN 10 MG TAB PO SCH ×3 (08:42→20:41)
[2017-10-31] MEDS: DOCUSATE SODIUM 100 MG CAP PO SCH ×2 (08:42→20:40)
[2017-10-31] MEDS: BISACODYL 10 MG SUPP PR SCH (08:43)
[2017-10-31] MEDS: L ACIDOPHIL/B LACTIS/B LONGUM CAPSULE PO SCH ×2 (08:43→20:41)
[2017-10-31] MEDS: ASCORBIC ACID 500 MG TAB PO SCH ×2 (08:43→20:41)
[2017-10-31] MEDS: CHOLECALCIFEROL 2,000 UNIT CAP PO SCH (08:43)
[2017-10-31] MEDS: MULTIVITAMINS/MINERALS TAB PO SCH (08:43)
[2017-10-31] MEDS: FOLIC ACID 1 MG TAB PO SCH (08:43)
[2017-10-31] MEDS: FISH OIL 1,000 MG CAP PO SCH ×2 (08:43→20:41)
[2017-10-31] MEDS: GABAPENTIN 100 MG CAP PO SCH ×3 (08:44→20:41)
[2017-10-31] MEDS: ENOXAPARIN 40 MG/0.4 ML SYG SC SCH (08:47)
[2017-10-31] MEDS ORDERED: AMIKACIN 500 MG in DEXTROSE 5% 100 ML IVPB ONE (09:00)
--- NOTE | 2017-10-31 09:08 | PN ---
Date/Time of Note Date/Time of Note DATE: 10/31/17 TIME: 09:07 Assessment/Plan VTE Prophylaxis VTE Prophylaxis Intervention: SCD's Lines/Catheters IV Catheter Type (from Nrs): Peripheral IV Urinary Cath still in place: Yes Reason Cath still needed: other (indicate) (monitor I&O) Assessment/Plan Chief Complaint/Hosp Course Assessment and plan 1. Complicated urinary tract infection. abx regimen per ID 2. Sepsis secondary to #1. Appears resolved at present. Monitor for now. 3. Bilateral hydronephrosis and hydroureter. Secondary to neurogenic bladder. Patient for outpatient follow-up with urologist. 4. Reported hypotension. Stable at present. no further reports of hypotension. monitor VS 5. Anemia of chronic disease. H&H remained stable. Monitor for now. Disposition and plan: Appears to be improved at this time. f/u urine cultures. d/c when cleared by home care consultant. Discussed plan of care with Dr. Almanzar Problems: Subjective 24 Hr Interval Summary Free Text/Dictation resting at this time. no s/s of distress. Exam/Review of Systems Vital Signs Vitals Vital Signs Date Time Temp Pulse Resp B/P Pulse Ox O2 Delivery O2 Flow Rate FiO2 10/31/17 03:16 98.1 66 17 109/55 96 Room Air Intake and Output 10/30/17 10/30/17 10/31/17 14:59 22:59 06:59 Intake Total 200 ml 802 ml Output Total 500 ml 1300 ml Balance -300 ml -498 ml Exam Constitutional: alert, oriented Psych: nl mood/affect Head: normocephalic Neck: No jvd Respiratory: clear to auscultation, normal air movement Cardiovascular: regular rate and rhythm Gastrointestinal: non-tender, soft Musculoskeletal: other (Quadriplegia) Neurological: nl mental status, nl speech Results Result Diagram: 10/31/172 10/31/17 045 Results 24 hrs Laboratory Tests Test 10/30/17 10:30 10/30/17 13:22 10/30/17 15:14 10/31/17 04:52 White Blood Count 7.4 5.6 # Red Blood Count 3.78 L 3.37 L Hemoglobin 11.7 L 10.5 L Hematocrit 35.5 L 31.5 L Mean Corpuscular Volume 93.9 93.5 Mean Corpuscular Hemoglobin 31.0 31.2 Mean Corpuscular Hemoglobin Concent 33.0 33.3 Red Cell Distribution Width 13.6 13.5 Platelet Count 337 333 Mean Platelet Volume 9.5 9.7 Neutrophils % 67.8 40.5 Lymphocytes % 24.7 46.4 Monocytes % 4.5 7.9 Eosinophils % 2.4 4.5 Basophils % 0.3 0.5 Nucleated Red Blood Cells % 0.0 0.0 Neutrophils # 5.0 2.3 Lymphocytes # 1.8 2.6 Monocytes # 0.3 0.4 Eosinophils # 0.2 0.3 Basophils # 0.0 0.0 Nucleated Red Blood Cells # 0.0 0.0 Prothrombin Time 13.3 Prothrombin Time Ratio 1.0 INR International Normalized Ratio 1.00 Activated Partial Thromboplast Time 29.1 Sodium Level 140 142 Potassium Level 4.9 4.4 Chloride Level 100 104 Carbon Dioxide Level 30 30 Anion Gap 15 12 Blood Urea Nitrogen 15 13 Creatinine 0.64 0.64 Glucose Level 159 94 # Lactic Acid Level 1.4 0.8 0.9 Calcium Level 9.7 9.5 Total Bilirubin 0.2 Direct Bilirubin 0.00 Indirect Bilirubin 0.2 Aspartate Amino Transf (AST/SGOT) 26 Alanine Aminotransferase (ALT/SGPT) 48 Alkaline Phosphatase 115 Total Protein 6.4 Albumin 3.9 Globulin 2.50 Albumin/Globulin Ratio 1.56 Medications Medications Current Medications Acetaminophen (Tylenol Tab) 650 mg Q6H PRN PO PAIN AND OR ELEVATED TEMP; Start 10/30/17 at 10:30 Albuterol (Proventil 0.083% (Neb)) 2.5 mg Q6H PRN NEB WHEEZING AND SOB; Start 10/30/17 at 10:30 Amoxicillin/ Clavulanate Potassium (Augmentin) 875 mg BID PO Last administered on 10/31/17 08:41; Admin Dose 875 MG; Start 10/30/17 at 21:00 Ascorbic Acid (Vitamin C) 500 mg BID PO Last administered on 10/31/17 08:43; Admin Dose 500 MG; Start 10/30/17 at 21:00 Baclofen (Lioresal) 5 mg TID PO Last administered on 10/31/17 08:42; Admin Dose 5 MG; Start 10/30/17 at 13:00 Bisacodyl (Dulcolax Supp) 10 mg DAILY [place] Last administered on 10/31/17 08:43 ; Admin Dose 10 MG; Start 10/31/17 at 09:00 Cholecalciferol (Vitamin D) 2,000 unit DAILY PO Last administered on 08:43; Admin Dose 2,000 UNIT; Start 10/31/17 at 09:00 Clotrimazole (Lotrimin Cr) 1 applic BID TOP Last administered on 10/31/17 08: 40; Admin Dose 1 APPLIC; Start 10/30/17 at 21:00 Docusate Sodium (Colace) 100 mg BID PO Last administered on 10/31/17 08:42; Admin Dose 100 MG; Start 10/30/17 at 21:00 Enoxaparin Sodium (Lovenox) 40 mg DAILY SC Last administered on 10/31/17 08: 47; Admin Dose 40 MG; Start 10/30/17 at 10:30 Ferrous Sulfate (Ferrous Sulfate (Ec)) 325 mg TID PO Last administered on 10/31 08:41; Admin Dose 325 MG; Start 10/30/17 at 13:00 Folic Acid (Folic Acid) 1 mg DAILY PO Last administered on 10/31/17 08:43; Admin Dose 1 MG; Start 10/31/17 at 09:00 Gabapentin (Neurontin) 100 mg TID PO Last administered on 10/31/17 08:44; Admin Dose 100 MG; Start 10/30/17 at 13:00 Acetaminophen/ Hydrocodone Bitart ([place] (10/325)) 1 tab Q6H PRN PO PAIN Last administered on 10/30/17 16:34; Admin Dose 1 TAB; Start 10/30/17 at 13:00 Multivitamins/ Minerals (Theragran-M) 1 tab DAILY PO Last administered on 10/31 08:43; Admin Dose 1 TAB; Start 10/31/17 at 09:00 Rifampin (Rifampin) 300 mg BID PO Last administered on 10/31/17 08:41; Admin Dose 300 MG; Start 10/30/17 at 21:00 Senna (Senokot) 1 tab QHS PO Last administered on 10/30/17 22:04; Admin Dose 1 TAB; Start 10/30/17 at 21:00 Simethicone (Mylicon) 80 mg QID PO Last administered on 10/31/17 08:44; Admin Dose 80 MG; Start 10/30/17 at 13:00 Eye Lubricant (Artificial Tears Oph) 1 drop QID BOTH EYES Last administered on 10/31/17 08:40; Admin Dose 1 DROP; Start 10/30/17 at 17:00 Lactobacillus Acidophilus (Florajen3 Capsule) 1 each BID PO Last administered on 10/31/17 08:43; Admin Dose 1 EACH; Start 10/30/17 at 21:00 Fish Oil (Fish Oil) 1,000 mg BID PO Last administered on 10/31/17 08:43; Admin Dose 1,000 MG; Start 10/30/17 at 21:00 Amikacin Sulfate AMIKACIN PER PHARM... NOTE XX ; Start 10/30/17 at 18:30 Amikacin Sulfate/ Dextrose (Amikacin/D5W) 102 ml @ 102 mls/hr ONCE ONCE IVPB ; Start 10/31/17 at 09:00; Stop 10/31/17 at 09:59 LOCO BEGUM Oct 31, 2017 09:08
--- NOTE | 2017-10-31 13:46 | CONS ---
Date/Time of Note Date/Time of Note DATE: 10/31/17 TIME: 13:32 Assessment/Plan Assessment/Plan Chief Complaint/Hosp Course ID PROGRESS NOTE TOTAL ABX DAY CURRENT ABX=> Augmentin, Rifampin, Amikacin x1 10/30 =>s/p Zosyn IV Clinda PO -> DC'd 10/30 24H INTERVAL SUMMARY * Doing well, asymptomatic, no fevers, VSS, NAD * Discharged with IV abx to [facility] facility. Patient sent back because facility can not handle IV abx * Repeat UA 10/30 w+ Leukocyte Esterase -- 2WBC * URINE CULTURE Final Organism 1 MORGANELLA MORGANII SSP MORG. COLONY COUNT >100,000 CFU/ml Organism 2 ENTEROCOCCUS SPECIES COLONY COUNT >100,000 CFU/ml MORMOSP ENT SPS M.I.C. RX M.I.C. 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 Status post sepsis last week resolved => recurrent hypotension requiring re- admission within 24H 2. Multidrug resistant urinary tract infection=> IN TREATMENT * Repeat UA 10/30 w+ Leukocyte Esterase -- 2WBC * 10/21/17 Urine Cx URINE CULTURE Final Organism 1 MORGANELLA MORGANII SSP MORG. COLONY COUNT >100,000 CFU/ml Organism 2 ENTEROCOCCUS SPECIES COLONY COUNT >100,000 CFU/ml 3. Neurogenic bladder 4. Bilateral hydronephrosis and hydroureter, status post Nevarez catheter being changed. 5. Anemia of chronic disease. INVASIVES: PIV, FC ABX ALLERGY: KNDA CURRENT ABX> Augmentin, Rifampin + Amikacin IV x1 12/9 =>s/p Zosyn IV = => s/p , Clinda PO ID PLAN 1. PLAN is for DC back to board [facility] care which cannot accommodate IV ABX * Repeat UA 10/30 w+ Leukocyte Esterase -- 2WBC => IN TREATMENT = partially treated * PO ABX will not treat GNR MM only sensitive to Aminoglycosides = he had dose Amikacin yesterday 2. ID Recommendation: Give dose Fosfomycin 3gm PO x1 today to clear any remaining bacteria from bladder * Fosfomycin should clear remaining Urine pathogens * OK to DC back to board and care with another dose of Fosfomycin 3gm po x1 tomorrow 11/01/17 * DC Augmentin when discharged, unclear why he is on Rifampin ? does he have hx of (+)QTFG from Board and care needs Latent TB prophy ? . Problems: Consultation Date/Type/Reason Admit Date/Time Oct 29, 2017 at 22:58 Exam/Review of Systems Vital Signs Vitals Vital Signs Date Time Temp Pulse Resp B/P Pulse Ox O2 Delivery O2 Flow Rate FiO2 10/31/17 08:00 98.2 81 17 134/64 10/31/17 03:16 96 Room Air Intake and Output 10/30/17 10/30/17 10/31/17 14:59 22:59 06:59 Intake Total 200 ml 802 ml Output Total 500 ml 1300 ml Balance -300 ml -498 ml Results Result Diagram: 10/31/17 0452 10/31/17 0452 Results 24 hrs Laboratory Tests Test 10/30/17 15:14 10/31/17 04:52 Lactic Acid Level 0.9 White Blood Count 5.6 # Red Blood Count 3.37 L Hemoglobin 10.5 L Hematocrit 31.5 L Mean Corpuscular Volume 93.5 Mean Corpuscular Hemoglobin 31.2 Mean Corpuscular Hemoglobin Concent 33.3 Red Cell Distribution Width 13.5 Platelet Count 333 Mean Platelet Volume 9.7 Neutrophils % 40.5 Lymphocytes % 46.4 Monocytes % 7.9 Eosinophils % 4.5 Basophils % 0.5 Nucleated Red Blood Cells % 0.0 Neutrophils # 2.3 Lymphocytes # 2.6 Monocytes # 0.4 Eosinophils # 0.3 Basophils # 0.0 Nucleated Red Blood Cells # 0.0 Sodium Level 142 Potassium Level 4.4 Chloride Level 104 Carbon Dioxide Level 30 Anion Gap 12 Blood Urea Nitrogen 13 Creatinine 0.64 Glucose Level 94 # Calcium Level 9.5 Medications Medications Current Medications Acetaminophen (Tylenol Tab) 650 mg Q6H PRN PO PAIN AND OR ELEVATED TEMP; Start 10/30/17 at 10:30 Albuterol (Proventil 0.083% (Neb)) 2.5 mg Q6H PRN NEB WHEEZING AND SOB; Start 10/30/17 at 10:30 Amoxicillin/ Clavulanate Potassium (Augmentin) 875 mg BID PO Last administered on 10/31/17 08:41; Admin Dose 875 MG; Start 10/30/17 at 21:00 Ascorbic Acid (Vitamin C) 500 mg BID PO Last administered on 10/31/17 08:43; Admin Dose 500 MG; Start 10/30/17 at 21:00 Baclofen (Lioresal) 5 mg TID PO Last administered on 10/31/17 08:42; Admin Dose 5 MG; Start 10/30/17 at 13:00 Bisacodyl (Dulcolax Supp) 10 mg DAILY [place] Last administered on 10/31/17 08:43 ; Admin Dose 10 MG; Start 10/31/17 at 09:00 Cholecalciferol (Vitamin D) 2,000 unit DAILY PO Last administered on 08:43; Admin Dose 2,000 UNIT; Start 10/31/17 at 09:00 Clotrimazole (Lotrimin Cr) 1 applic BID TOP Last administered on 10/31/17 08: 40; Admin Dose 1 APPLIC; Start 10/30/17 at 21:00 Docusate Sodium (Colace) 100 mg BID PO Last administered on 10/31/17 08:42; Admin Dose 100 MG; Start 10/30/17 at 21:00 Enoxaparin Sodium (Lovenox) 40 mg DAILY SC Last administered on 10/31/17 08: 47; Admin Dose 40 MG; Start 10/30/17 at 10:30 Ferrous Sulfate (Ferrous Sulfate (Ec)) 325 mg TID PO Last administered on 10/31 08:41; Admin Dose 325 MG; Start 10/30/17 at 13:00 Folic Acid (Folic Acid) 1 mg DAILY PO Last administered on 10/31/17 08:43; Admin Dose 1 MG; Start 10/31/17 at 09:00 Gabapentin (Neurontin) 100 mg TID PO Last administered on 10/31/17 08:44; Admin Dose 100 MG; Start 10/30/17 at 13:00 Acetaminophen/ Hydrocodone Bitart ([place] (10/325)) 1 tab Q6H PRN PO PAIN Last administered on 10/30/17 16:34; Admin Dose 1 TAB; Start 10/30/17 at 13:00 Multivitamins/ Minerals (Theragran-M) 1 tab DAILY PO Last administered on 10/31 08:43; Admin Dose 1 TAB; Start 10/31/17 at 09:00 Rifampin (Rifampin) 300 mg BID PO Last administered on 10/31/17 08:41; Admin Dose 300 MG; Start 10/30/17 at 21:00 Senna (Senokot) 1 tab QHS PO Last administered on 10/30/17 22:04; Admin Dose 1 TAB; Start 10/30/17 at 21:00 Simethicone (Mylicon) 80 mg QID PO Last administered on 10/31/17 08:44; Admin Dose 80 MG; Start 10/30/17 at 13:00 Eye Lubricant (Artificial Tears Oph) 1 drop QID BOTH EYES Last administered on 10/31/17 08:40; Admin Dose 1 DROP; Start 10/30/17 at 17:00 Lactobacillus Acidophilus (Florajen3 Capsule) 1 each BID PO Last administered on 10/31/17 08:43; Admin Dose 1 EACH; Start 10/30/17 at 21:00 Fish Oil (Fish Oil) 1,000 mg BID PO Last administered on 10/31/17 08:43; Admin Dose 1,000 MG; Start 10/30/17 at 21:00 Amikacin Sulfate (Amikacin Iv Per Pharmacy) AMIKACIN PER PHARM... NOTE XX ; Start 10/30/17 at 18:30 ALICIA NAJERA NP Oct 31, 2017 13:44
[2017-10-31 14:00] VITALS: BP 113/67; RESP 18
[2017-10-31] MEDS ORDERED: FOSFOMYCIN 3 GM PACKET PO ONE (14:00)
[2017-10-31] MEDS: HYDROCODONE/APAP (10/325) TAB PO PRN ×2 (14:23→22:21)
[2017-10-31 20:31] VITALS: BP 107/58; RESP 20
[2017-10-31] MEDS: SENNA TAB PO SCH (20:40)
[2017-11-01 02:48] VITALS: BP 108/58; RESP 18
[2017-11-01 06:39] LABS: BASOPHILS % 0.6 % (0.0-2.0); EOSINOPHILS # 0.3 10^3/ul (0.0-0.5); EOSINOPHILS % 5.4 % (0.0-7.0); HEMATOCRIT 31.9 % (42.0-52.0); HEMOGLOBIN 10.5 g/dl (14.0-18.0); LYMPHOCYTES # 2.4 10^3/ul (0.8-2.9); LYMPHOCYTES % 51.6 % (15.0-51.0); MEAN CORPUSCULAR HEMOGLOBIN 30.8 pg (29.0-33.0); MEAN CORPUSCULAR HGB CONC 32.9 g/dl (32.0-37.0); MEAN CORPUSCULAR VOLUME 93.5 fl (82.0-101.0); MEAN PLATELET VOLUME 9.8 fl (7.4-10.4); MONOCYTE # 0.5 10^3/ul (0.3-0.9); MONOCYTES % 9.9 % (0.0-11.0); NEUTROPHIL # 1.5 10^3/ul (1.6-7.5); NEUTROPHILS % 32.3 % (39.0-77.0); PLATELET COUNT 327 10^3/UL (140-415); RED BLOOD COUNT 3.41 10^6/ul (4.70-6.10); RED CELL DISTRIBUTION WIDTH 13.8 % (11.5-14.5); WHITE BLOOD COUNT 4.7 10^3/ul (4.8-10.8)
[2017-11-01 07:29] LABS: CALCIUM 9.5 mg/dl (8.4-10.2); CREATININE 0.6 mg/dl (0.61-1.24); POTASSIUM 4.1 mmol/L (3.5-5.1)
[2017-11-01 07:37] VITALS: BP 110/56; RESP 18
[2017-11-01] MEDS: DOCUSATE SODIUM 100 MG CAP PO SCH (09:09)
[2017-11-01] MEDS: CHOLECALCIFEROL 2,000 UNIT CAP PO SCH (09:09)
[2017-11-01] MEDS: ASCORBIC ACID 500 MG TAB PO SCH (09:09)
[2017-11-01] MEDS: FERROUS SULFATE (EC) 325 MG TAB PO SCH ×2 (09:09→13:32)
[2017-11-01] MEDS: RIFAMPIN 300 MG CAP PO SCH (09:09)
[2017-11-01] MEDS: GABAPENTIN 100 MG CAP PO SCH ×2 (09:09→13:32)
[2017-11-01] MEDS: FOLIC ACID 1 MG TAB PO SCH (09:10)
[2017-11-01] MEDS: AMOXICILLIN/CLAV 875 MG TAB PO SCH (09:10)
[2017-11-01] MEDS: BISACODYL 10 MG SUPP PR SCH (09:10)
[2017-11-01] MEDS: ARTIFICIAL TEARS 15 ML OPH BOTH EYES SCH ×3 (09:10→16:26)
[2017-11-01] MEDS: CLOTRIMAZOLE 1% 30 GM CR TOP SCH (09:10)
[2017-11-01] MEDS: FISH OIL 1,000 MG CAP PO SCH (09:10)
[2017-11-01] MEDS: L ACIDOPHIL/B LACTIS/B LONGUM CAPSULE PO SCH (09:10)
[2017-11-01] MEDS: MULTIVITAMINS/MINERALS TAB PO SCH (09:10)
[2017-11-01] MEDS: BACLOFEN 10 MG TAB PO SCH ×2 (09:10→13:32)
[2017-11-01] MEDS: ENOXAPARIN 40 MG/0.4 ML SYG SC SCH (09:12)
[2017-11-01] MEDS: metFORMIN 500 MG TAB PO SCH (09:18)
[2017-11-01] MEDS ORDERED: FOSFOMYCIN 3 GM PACKET PO ONE (10:00)
[2017-11-01] MEDS ORDERED: AMIKACIN 1,000 MG in DEXTROSE 5% 100 ML IVPB SCH (10:00)
[2017-11-01 14:00] VITALS: BP 92/57; RESP 18
[2017-11-01] MEDS: HYDROCODONE/APAP (10/325) TAB PO PRN (16:26)
--- NOTE | 2017-11-01 19:26 | PN ---
DATE: 11/01/2017 SUBJECTIVE: No events overnight. The patient is alert, denies pain, discomfort. No fevers. No vo miting or nausea. LABORATORY: WBC 4.7, no shift, no bands. BUN 11, creatinine 0.60. MICROBIOLOGY: Blood and urine culture negative. ANTIMICROBIALS: The patient is on Amikacin and Augmentin. PHYSICAL EXAMINATION: GENERAL: This is a well-developed, quadriplegic, elderly man who is in no distress. HEENT: Head atraumatic, normocephalic. Sclerae anicteric. Buccal mucosa dry. NECK: Supple. CHEST: Rise symmetrical. Breath sounds clear, diminished to bases. HEART: S1, S2. ABDOMEN: Soft, bowel tones present. EXTREMITIES: Wasted without cyanosis. ASSESSMENT: 1. Recurrent urinary tract infection, completing antibiotics. 2. Quadriplegia. 3. Neurogenic bladder. PLAN: The patient remains stable. Completing antibiotics. Continue supportive care. Dictated By: S[employer]A [employer] RECOVERY OPERATOR for SOWMYA PEÑA MD NI/NTS Conf#: [id number] DID#: [id number] CC: MATTHEW MENA MD;*EndCC*
--- NOTE | 2017-11-10 22:47 | DS ---
Date/Time of Note Date/Time of Note DATE: 11/10/17 TIME: 22:43 Discharge Summary Admission/Discharge Info Admit Date/Time Oct 29, 2017 at 22:58 Discharge Date/Time Nov 01, 2017 at 17:48 Discharge Diagnosis 1. Complicated urinary tract infection 2. Bilateral hydronephrosis and hydroureter : 2/2 neurogenic bladder 3. Chronic Normocytic, normochromic anemia. 3. Neurogenic bladder. Patient Condition: Stable Consults 1. Dr. Shad Blanton Hx of Present Illness There is a 62-year-old male who is quadriplegic from a previous traumatic fall who was recently admitted for complicated urinary tract infection and also found to have mild to moderate bilateral hydronephrosis and hydroureter. Patient was seen by urologist and did have Nevarez catheter was removed. He had a does have a history of neurogenic bladder from his quadriplegia. Patient was planned for discharge back to [facility] however it was noted that patient's facility does not accommodate IV antibiotics. We therefore placed him on oral antibiotics to be discharged home on which she was sensitive to. Was reported by the patient was in the emergency room he did have episode of hypotension and as such was admitted back again to [facility] for further evaluation. Currently remains afebrile with no elevation in white count. BMP otherwise appears unremarkable. We will evaluate him for the aformentiond issues. Hospital Course This is a 62-year-old male with history of quadriplegia from traumatic fall who came to [facility] due to reports of urinary tract infection with sepsis. He was seen by infectious disease physician and placed on appropriate antibiotics. He did improve with afebrile status on the day of discharge. He was otherwise optimized medically. He did have a history of bilateral hydronephrosis and hydroureter from neurogenic bladder and was advised for outpatient follow-up with urologist. He does have anemia of chronic disease which remains stable. During his course of stay he did improve. He was improved and did finish appropriate antibiotics. The plan of care was discussed with the patient. On the day of discharge patient was in stable condition Discussed plan of care with Dr. Benitez [place] Meds Reported Medications Cholecalciferol (Vitamin D3) (VITAMIN D-3) 2,000 Unit Capsule, 2000 UNIT PO Q NOON, CAP 10/21/17 Ascorbic Acid (Vitamin C) 500 Mg Tab, 500 MG PO BID, TAB 10/21/17 Multivit,Calc,Mins/Iron/Folic (Therapeutic-M Tablet) 1 Each Tablet, 1 EACH PO NOON, TAB 10/21/17 Simethicone (GAS RELIEF) 80 Mg Tab.chew, 80 MG PO QID, TAB.CHEW 10/21/17 Sennosides* (Senna Lax*) 8.6 Mg Tablet, 1 TAB PO QHS, TAB 10/21/17 Gabapentin* (Neurontin*) 100 Mg Capsule, 100 MG PO TID, #90 CAP 10/21/17 Metformin Hcl* (Metformin Hcl*) 500 Mg Tablet, 500 MG PO WITH BREAKFAST DINNE, # 60 TAB 10/21/17 Lactobacillus Acidophilus* (Lactinex*) 1 Tab Chew, 1 TAB PO TID, TAB 10/21/17 Hydrocodone/Acetaminophen ([place] 10-325 Tablet) 1 Each Tablet, 1 EACH PO Q6H, TAB 10/21/17 Glycerin* (Glycerin (Adult)*) 1 Each Supp.rect, 1 EACH WI DAILY Y for CONSTIPATION, SUPP.RECT 10/21/17 Folic Acid* (Folic Acid*) 1 Mg Tablet, 1 MG PO DAILY, TAB 10/21/17 [place]-3 Fatty Acids/Fish Oil (Fish Oil 1,000 mg Capsule) 1 Each Capsule, 1 EACH PO TID, CAP 10/21/17 Ferrous Sulfate* (Ferrous Sulfate*) 325 Mg Tabec, 325 MG PO TID, TAB 10/21/17 Enoxaparin Sodium* (Enoxaparin Sodium*) 40 Mg/0.4 Ml Syringe, 40 MG SC Q24H, SYR 10/21/17 Docusate Sodium* (Docusate Sodium*) 100 Mg Capsule, 100 MG PO BID, #60 CAP 10/21/17 Clotrimazole* (Lotrimin*) 1%-30 Gm Cream..g., 1 APPLIC TOP BID, TUB 10/21/17 Bisacodyl* (Bisacodyl*) 10 Mg Supp, 10 MG WI DAILY, SUPP 10/21/17 Baclofen* (Baclofen*) 10 Mg Tablet, 5 MG PO TID, TAB 10/21/17 Dextran 70/Hypromellose/Pf (ARTIFICIAL TEARS DROPS) 1 Each Droperette, 1 EACH OP QID 10/21/17 Aluminum Hydroxide (Aluminum Hydroxide) 320 Mg/5 Ml Oral.susp, 30 ML PO Q4H 10/21/17 Albuterol Sulfate* (Albuterol Sulfate* Neb) 0.083%-3 Ml Neb, 2.5 MG NEB Q6H Y for WHEEZING AND SOB, #30 VIAL 10/21/17 Acetaminophen* (Acetaminophen*) 325 Mg Tablet, 650 MG PO Q6H Y for PAIN AND OR ELEVATED TEMP, #30 TAB 10/21/17 Follow-up Plan Patient is being discharged back to [facility]. Need to complete 10 days course of oral antibiotics Primary Care Provider Care Physician No Primary Time spent on discharge: > 30 minutes LOCO BEGUM Nov 10, 2017 22:47
== END 2017-11-01 17:48 ==
LOC: E/R 19:34 → PP2 22:58
PROVIDERS: ADMIT Internal Medicine; ATTEND Internal Medicine
DX: N39.0 Urinary tract infection, site not specified (principal); G82.50 Quadriplegia, unspecified; E11.9 Type 2 diabetes mellitus without complications; Z79.84 Long term (current) use of oral hypoglycemic drugs; N31.9 Neuromuscular dysfunction of bladder, unspecified; N13.30 Unspecified hydronephrosis; N13.4 Hydroureter; D63.8 Anemia in other chronic diseases classified elsewhere; I95.9 Hypotension, unspecified
CPT/HCPCS: 36415; 80048; 80053; 81001; 82962; 83605; 85025; 85610; 85730; 87040; 87081; 87086; 93005; 96374; 96375; J0278; J1650; J1885; J2270; J2543; J7030; Z7500; Z7502; Z7610; G0378